=== PATIENT | male | born 1955 | race Caucasian/White ===

== ENCOUNTER 2017-02-11 14:36 | Emergency (ER) | payer MEDICARE, OTHER ==
[~2017-02-11] VITALS: Ht 175.3 cm; Wt 90.7 kg
[~2017-02-11 14:36] MED LIST: ASPI81CH58 PO; CARI-316 PO; DIPH25CA6 PO; FLUT250M2 IN; HYDR-4072 PO; IPRAAER6 IN; LEVO750T64 PO; METH5TAB2 PO; NITR0.4S29 SL; PRE5T PO; PREG25CA PO
[2017-02-11 15:01] LABS: Basophils # (auto) 0.1 uL; Basophils % (auto) 0.5 % (0.0-2.0); Eosinophils # (auto) 0.1 uL; Eosinophils % (auto) 0.7 % (0.0-7.0); Hematocrit 46.9 % (41.0-53.0); Hemoglobin 15.8 g/dL (13.5-17.5); Lymphocytes # (auto) 2.2 uL; Lymphocytes % (auto) 14.1 % (10.0-50.0); Mean Corpuscular Hemoglobin 31.9 pg (28.0-32.0); Mean Corpuscular Hgb Conc. 33.7 g/dL (32.0-36.0); Mean Corpuscular Volume 94.6 fL (80.0-100.0); Mean Platelet Volume 7.1 fL (6.9-10.8); Monocytes # (auto) 0.8 uL; Monocytes % (auto) 5.2 % (0.0-12.0); Neutrophils # (auto) 12.4 uL; Neutrophils % (auto) 79.5 % (37.0-80.0); Platelet Count (auto) 262 10^3/uL (140-450); Red Cell Distribution Width 15.4 % (11.8-14.3); White Blood Cell 15.5 10^3/uL (4.4-10.8)
[2017-02-11 15:19] LABS: Albumin 4.5 g/dL (3.4-5.0); BUN/Creatinine Ratio 26.4; Calcium 9.2 mg/dL (8.5-10.1)
[2017-02-11 15:22] LABS: Bilirubin, Total 0.7 mg/dL (0.2-1.0); Total Protein 8.3 g/dL (6.4-8.2)
[2017-02-11 15:52] VITALS: BP 154/96
== END 2017-02-11 15:44 | disposition home or self-care (01) ==
LOC: EDBD 14:36 → ER 14:36
DX: R10.9 Unspecified abdominal pain (principal); J44.9 Chronic obstructive pulmonary disease, unspecified; E11.9 Type 2 diabetes mellitus without complications; E78.5 Hyperlipidemia, unspecified; I10 Essential (primary) hypertension; I25.2 Old myocardial infarction; G89.29 Other chronic pain; M54.9 Dorsalgia, unspecified; F17.210 Nicotine dependence, cigarettes, uncomplicated; Z79.899 Other long term (current) drug therapy; Z91.018 Allergy to other foods; Z88.8 Allergy status to other drugs, medicaments and biological substances; Z88.6 Allergy status to analgesic agent
CPT/HCPCS: 36415; 74176; 80053; 82150; 83690; 85025; 93005

== ENCOUNTER 2018-12-04 00:43 | Emergency (ER) | payer MEDICARE, OTHER ==
[~2018-12-04] VITALS: Ht 165.1 cm; Wt 90.7 kg
[~2018-12-04 00:43] MED LIST changes: -CARI-316 PO; +CARI350T22 PO
[2018-12-04 01:41] LABS: Basophils # (auto) 0.1 uL; Basophils % (auto) 0.5 % (0.0-2.0); Eosinophils # (auto) 0.1 uL; Eosinophils % (auto) 1.2 % (0.0-7.0); Hematocrit 46.3 % (41.0-53.0); Hemoglobin 15.3 g/dL (13.5-17.5); Lymphocytes # (auto) 2.4 uL; Lymphocytes % (auto) 21.4 % (10.0-50.0); Mean Corpuscular Hemoglobin 27.9 pg (28.0-32.0); Mean Corpuscular Volume 84.6 fL (80.0-100.0); Monocytes # (auto) 0.7 uL; Monocytes % (auto) 6.5 % (0.0-12.0); Neutrophils # (auto) 7.9 uL; Neutrophils % (auto) 70.4 % (37.0-80.0); Nucleated Red Blood Cells % 0.1 %; Platelet Count (auto) 177 10^3/uL (140-450); Red Blood Cells 5.47 10^6/uL (4.5-5.90); White Blood Cell 11.2 10^3/uL (4.4-10.8)
[2018-12-04 01:42] LABS: Red Cell Distribution Width 23.8 % (11.8-14.3)
[2018-12-04 01:56] LABS: Alanine Aminotransferase 34 U/L (16-61); Albumin 3.7 g/dL (3.4-5.0); Anion Gap 9 (5-15); Aspartate Aminotransferase 34 U/L (15-37); BUN/Creatinine Ratio 11.9; Blood Urea Nitrogen 12 mg/dL (7-18); Calcium 8.4 mg/dL (8.5-10.1); Carbon Dioxide 25 mmol/L (21-32); Chloride 110 mmol/L (98-107); GFR African American 97 mL/min; GFR Non-African American 80 mL/min; Glucose 108 mg/dL (74-106); Potassium 3.8 mmol/L (3.5-5.1); Sodium 144 mmol/L (136-145)
[2018-12-04 02:02] LABS: Alkaline Phosphatase 77 U/L (45-117); Bilirubin, Total 0.6 mg/dL (0.2-1.0)
[2018-12-04 02:03] LABS: Total Protein 7.1 g/dL (6.4-8.2)
[2018-12-04] MEDS ORDERED: ALBUTEROL SULF 2.5 MG/0.5ML(0.5%) NEB SOLN NEB ONE (03:30)
[2018-12-04] MEDS ORDERED: IPRATROPIUM BROM 0.5 MG/2.5ML INH SOL NEB ONE (03:30)
[2018-12-04 04:00] VITALS: BP 167/104
[2018-12-04] MEDS ORDERED: methylPREDNISolone SOD SUCC 125 MG/2 ML VL IV ONE (04:15)
[2018-12-04] MEDS ORDERED: cefTRIAXone 1GM/50ML D5W 50 ML IV ONE (05:00)
== END 2018-12-04 05:09 | disposition home or self-care (01) ==
LOC: EDBD 00:43 → ER 00:43
DX: J44.9 Chronic obstructive pulmonary disease, unspecified (principal); J06.9 Acute upper respiratory infection, unspecified; K42.9 Umbilical hernia without obstruction or gangrene; E78.5 Hyperlipidemia, unspecified; I11.0 Hypertensive heart disease with heart failure; I50.9 Heart failure, unspecified; E11.9 Type 2 diabetes mellitus without complications; I25.2 Old myocardial infarction; Z86.73 Personal history of transient ischemic attack (TIA), and cerebral infarction without residual deficits
CPT/HCPCS: 36415; 71045; 80053; 84484; 85025; 93005; 94640; 96365; 99284; J0696; J7611; J7644

== ENCOUNTER 2019-02-08 09:43 | Inpatient (IN) | payer MEDICARE, OTHER ==
[~2019-02-08] VITALS: Ht 165.1 cm; Wt 84.0 kg
[2019-02-08 10:14] LABS: Basophils # (auto) 0.1 uL; Eosinophils # (auto) 0.5 uL; Mean Corpuscular Hgb Conc. 33.6 g/dL (32.0-36.0); Monocytes # (auto) 0.6 uL; Nucleated Red Blood Cells % 0.1 %
[2019-02-08 10:15] LABS: Basophils % (auto) 0.9 % (0.0-2.0); Hematocrit 52.5 % (41.0-53.0); Hemoglobin 17.7 g/dL (13.5-17.5); Lymphocytes % (auto) 22.4 % (10.0-50.0); Mean Corpuscular Hemoglobin 30.6 pg (28.0-32.0); Monocytes % (auto) 6.7 % (0.0-12.0); Platelet Count (auto) 208 10^3/uL (140-450); Red Blood Cells 5.77 10^6/uL (4.5-5.90); Red Cell Distribution Width 17.5 % (11.8-14.3); White Blood Cell 9.2 10^3/uL (4.4-10.8)
[2019-02-08] MEDS ORDERED: ALBUTEROL SULF 2.5 MG/0.5ML(0.5%) NEB SOLN NEB ONE ×2 (10:30→10:45)
[2019-02-08] MEDS ORDERED: IPRATROPIUM BROM 0.5 MG/2.5ML INH SOL NEB ONE ×2 (10:30→10:45)
[2019-02-08 10:33] LABS: Albumin 4.2 g/dL (3.4-5.0); Calcium 9.1 mg/dL (8.5-10.1); Potassium 4.1 mmol/L (3.5-5.1)
[2019-02-08 10:37] LABS: BUN/Creatinine Ratio 13.7; Bilirubin, Total 0.8 mg/dL (0.2-1.0); Total Protein 8.1 g/dL (6.4-8.2)
[2019-02-08] MEDS ORDERED: SODIUM CHLORIDE 0.9% 1,000 ML IV ONE (10:39)
[2019-02-08] MEDS ORDERED: DexAMETHasone SOD PHOS 4 MG/1ML SDV INJ IV ONE (10:45)
[2019-02-08] MEDS ORDERED: AZITHROMYCIN 500MG/ 250ML 250 ML IV ONE (12:45)
[2019-02-08] MEDS ORDERED: CARISOPRODOL 350 MG TAB PO ONE (13:45)
[2019-02-08] MEDS ORDERED: NITROGLYCERIN 0.4 MG SL TAB SL PRN (16:00)
[2019-02-08] MEDS ORDERED: ONDANSETRON HCL 4 MG/2 ML VIAL IV PRN (16:00)
[2019-02-08] MEDS ORDERED: ACETAMINOPHEN 325 MG TAB PO PRN (16:00)
--- NOTE | 2019-02-08 16:55 | NUR ---
RECEIVED REPORT FROM STEPHIE SIMPSON.
[2019-02-08 17:16] VITALS: BP 122/77
[2019-02-08 17:20] LABS: Urine Bacteria NONE SEEN /hpf (None Seen); Urine Blood Negative /uL (Negative); Urine Hyaline Cast FEW /lpf (0 - 2); Urine Specific Gravity 1.019 (1.001-1.035); Urine WBC 1 /hpf (0 - 3)
--- NOTE | 2019-02-08 17:25 | NUR ---
Telemetry admit from ER PRITIDONNELL admitted to Telemetry unit after SBAR received. Patient oriented to MARLENY SPAIN RN, unit, room, bed, and unit policies regarding patient care and visiting hours. Patient now on continuous telemetry monitoring, tele box # 49 and telemetry reading on arrival to unit is SINUS TACHYCARDIA AT 100. Patient placed on bedside oxygen, weighed by bedscale and encouraged to call if they need something. All questions and concerns addressed, patient verbalized understanding.
[2019-02-08] MEDS: ALBUTEROL SULF 2.5 MG/0.5ML(0.5%) NEB SOLN NEB SCH ×2 (18:35→21:58)
[2019-02-08] MEDS: IPRATROPIUM BROM 0.5 MG/2.5ML INH SOL NEB SCH ×2 (18:35→21:58)
[2019-02-08 18:41] VITALS: BP 135/84
--- NOTE | 2019-02-08 19:29 | NUR ---
Opening Shift Note Assumed care of patient, awake and alert. No S/S of distress/SOB or pain. Instructed on POC and to call for assist PRN, will continue to monitor for changes Q1hr and PRN. Side rails up x2. Bed locked in lowest position. Call light within reach.
--- NOTE | 2019-02-08 20:10 | NUR ---
AMA to smoke Patient signed form for AMA to smoke. Instructed patient regarding risks of injury that may occur while smoking. Patient verbalized understanding.
--- NOTE | 2019-02-08 20:16 | NUR ---
Patient went down to smoke with his scooter.
--- NOTE | 2019-02-08 20:29 | NUR ---
Patient back to floor with scooter. No signs of distress noted.
[2019-02-08] MEDS: METHADONE HCL 10 MG TAB PO SCH (21:08)
[2019-02-08 22:00] VITALS: BP 139/80
[2019-02-09 05:00] VITALS: BP 115/65
--- NOTE | 2019-02-09 05:16 | NUR ---
Patient went down to smoke with his scooter.
--- NOTE | 2019-02-09 05:28 | NUR ---
Patient back to floor with scooter. No distress noted.
--- NOTE | 2019-02-09 06:39 | NUR ---
Spoke to Dr. Lock over the phone Updated on patient status. Dr. Lock ordered repeat chest xray, Albuterol 2.5 mg q2hPRN, Azithromycin IV 500 mg daily.
[2019-02-09] MEDS ORDERED: ALBUTEROL SULF 2.5 MG/0.5ML(0.5%) NEB SOLN NEB PRN (07:00)
--- NOTE | 2019-02-09 07:09 | NUR ---
Endorsed care to day shift RN.
[2019-02-09] MEDS: IPRATROPIUM BROM 0.5 MG/2.5ML INH SOL NEB SCH ×5 (07:23→22:19)
[2019-02-09] MEDS: ALBUTEROL SULF 2.5 MG/0.5ML(0.5%) NEB SOLN NEB SCH ×5 (07:23→22:19)
--- NOTE | 2019-02-09 07:48 | NUR ---
PATIENT ROUNDS PATIENT IN ROOM, RR EQUAL AND NONLABORED, NO DISTRESS NOTED. BED IN LOWEST POSITION, SIDE RAILS UP X2, CALL LIGHT WITHIN REACH.
--- NOTE | 2019-02-09 08:45 | NUR ---
PATIENT REQUESTING TO HAVE HIS BLOOD SUGAR CHECKED PATIENT STATED HE FEELS LIKE HIS SUGAR IS LOW AND STATED HE GETS HYPOGLYCEMIC, BLOOD SUGAR CHECKED FOR PATIENT AND IS CURRENTLY 175, NO ORDERS FOR INITIATION ON SUGAR. PATIENT AWARE AND STATED "THAT'S GOOD"
[2019-02-09 09:00] VITALS: BP 122/77
[2019-02-09] MEDS: AZITHROMYCIN 500MG/ 250ML 250 ML IV SCH (09:57)
[2019-02-09] MEDS: PREGABALIN 25 MG CAP PO SCH (09:57)
[2019-02-09] MEDS: ASPirin 81 mg TAB PO SCH (09:58)
[2019-02-09] MEDS: METHADONE HCL 10 MG TAB PO SCH ×2 (09:58→21:08)
[2019-02-09] MEDS ORDERED: predniSONE 5 MG TAB PO SCH (10:00)
--- NOTE | 2019-02-09 11:48 | NUR ---
IV insertion IV access obtained, via clean sterile technique by inserting 22 gauge catheter at LEFT WRIST after 1 attempt(s). IV secured properly. No trauma to site. Patient tolerated well. IV TO RIGHT FOREARM WAS FOUND OUT WHEN I WENT TO ASSESS PATIENT, SITE BENIGN. NOTE:
[2019-02-09 13:00] VITALS: BP 130/78
[2019-02-09 16:28] VITALS: BP 92/53
[2019-02-09] MEDS: BUDESONIDE (INHALATION) 0.5 MG/2 ML NEB NEB SCH (19:18)
--- NOTE | 2019-02-09 19:30 | NUR ---
Patient went down to smoke with his scooter.
--- NOTE | 2019-02-09 19:45 | NUR ---
Patient back to floor with scooter. No distress noted.
[2019-02-09] MEDS: CARISOPRODOL 350 MG TAB PO PRN (21:30)
[2019-02-09 22:00] VITALS: BP 135/75
[2019-02-09] MEDS ORDERED: methylPREDNISolone SOD SUCC 125 MG/2 ML VL IV SCH (22:00)
--- NOTE | 2019-02-09 22:33 | NUR ---
Notified Dr. Lock regarding pharmacy hold on methylprednisolone due to severe allergy.
[2019-02-09] MEDS: diphenhdrAMINE HCL 25 MG CAP PO PRN (23:55)
[2019-02-10 05:00] VITALS: BP 158/83
[2019-02-10 06:12] LABS: Basophils # (auto) 0.1 uL; Basophils % (auto) 0.6 % (0.0-2.0); Eosinophils # (auto) 0.1 uL; Eosinophils % (auto) 1.1 % (0.0-7.0); Hematocrit 47.9 % (41.0-53.0); Hemoglobin 16.1 g/dL (13.5-17.5); Lymphocytes # (auto) 1.9 uL; Lymphocytes % (auto) 20.5 % (10.0-50.0); Mean Corpuscular Hemoglobin 30.7 pg (28.0-32.0); Mean Corpuscular Hgb Conc. 33.6 g/dL (32.0-36.0); Mean Corpuscular Volume 91.3 fL (80.0-100.0); Monocytes # (auto) 0.5 uL; Monocytes % (auto) 5.6 % (0.0-12.0); Neutrophils # (auto) 6.7 uL; Neutrophils % (auto) 72.2 % (37.0-80.0); Platelet Count (auto) 180 10^3/uL (140-450); Red Blood Cells 5.25 10^6/uL (4.5-5.90); Red Cell Distribution Width 16.8 % (11.8-14.3); White Blood Cell 9.3 10^3/uL (4.4-10.8)
[2019-02-10] MEDS: diphenhdrAMINE HCL 25 MG CAP PO PRN (06:28)
[2019-02-10 06:35] LABS: Calcium 8.6 mg/dL (8.5-10.1); Potassium 3.7 mmol/L (3.5-5.1)
[2019-02-10 06:39] LABS: BUN/Creatinine Ratio 13.7; Bilirubin, Total 0.5 mg/dL (0.2-1.0); Total Protein 7.2 g/dL (6.4-8.2)
[2019-02-10] MEDS: BUDESONIDE (INHALATION) 0.5 MG/2 ML NEB NEB SCH ×2 (06:41→18:35)
[2019-02-10] MEDS: IPRATROPIUM BROM 0.5 MG/2.5ML INH SOL NEB SCH ×5 (06:41→22:46)
[2019-02-10] MEDS: ALBUTEROL SULF 2.5 MG/0.5ML(0.5%) NEB SOLN NEB SCH ×5 (06:41→22:46)
[2019-02-10] MEDS ORDERED: HYDROcodone-ACET 10/325MG TAB PO PRN (07:30)
--- NOTE | 2019-02-10 07:33 | NUR ---
Endorsed care to day shift RN.
[2019-02-10 08:00] VITALS: BP 145/84
--- NOTE | 2019-02-10 08:00 | NUR ---
Opening Shift Note Assumed care of patient, awake and alert. No S/S of distress/SOB or pain. Instructed on POC and to call for assist PRN, will continue to monitor for changes Q1hr and PRN.
--- NOTE | 2019-02-10 10:10 | NUR ---
PT. NOT IN HIS ROOM, UNABLE TO GIVE MN. TX. , WILL SEE PT. AT NEXT SCHEDULED TIME.
[2019-02-10] MEDS: PREGABALIN 25 MG CAP PO SCH (10:17)
[2019-02-10] MEDS: AZITHROMYCIN 500MG/ 250ML 250 ML IV SCH (10:17)
[2019-02-10] MEDS: ASPirin 81 mg TAB PO SCH (10:17)
[2019-02-10 13:00] VITALS: BP 120/77
--- NOTE | 2019-02-10 15:21 | NUR ---
NUTRITION ASSESSMENT NOTES Please refer to link notes of nutrition screen form filed under the intervention section of the plan of care for further details. Est. Needs: 1650 kcal to 2050 kcal (20-25 kcal/kgBW), 66 gms to 83 gms pro (0.8-1.0 gms/kgBW). Will continue to monitor pertinent labs and reassess nutrient need prn Thank you. Addendum: 02/10/19 at [address] Amended: Links added.
[2019-02-10 16:00] VITALS: BP 136/72
[2019-02-10] MEDS ORDERED: ZOLPIDEM TARTRATE 5 MG TAB PO PRN (17:45)
[2019-02-10] MEDS ORDERED: HYDROcodone-ACET 5/325MG TAB PO PRN (17:45)
--- NOTE | 2019-02-10 19:55 | NUR ---
Opening Shift Note Assumed care of patient, awake and alert. No S/S of distress/SOB. Instructed on POC and to call for assist PRN, will continue to monitor for changes Q1hr and PRN. Patient reported he is in 5/10 generalized pain. Per patient " I am sick of this place i do not want any medications, i have not slept for three days and i feel anxious, i do not want any medications, I can not wait to leave tomorrow." Education patient about medications.
--- NOTE | 2019-02-10 20:30 | NUR ---
patient off unit went to smoke. educated patient about smoking policy. smoking consent form signed
--- NOTE | 2019-02-10 20:50 | NUR ---
patient returned back to unit. tele monitor applied. bed in low position and call light within reach.
[2019-02-10 22:00] VITALS: BP 145/89
--- NOTE | 2019-02-10 23:30 | NUR ---
patient off unit went to smoke. educated patient about smoking policy. patient has smoking consent form signed.
--- NOTE | 2019-02-10 23:56 | NUR ---
PATIENT BACK ON UNIT. TELEMONITOR APPLIED, BED IN LOW POSITION AND CALL LIGHT WITHIN REACH. NO SIGNS OR SYMPTOMS OF sob/ DISTRESS
--- NOTE | 2019-02-11 00:15 | NUR ---
PATIENT REQUESTED SOMA MEDICATION WILL MEDICATE PER PROTOCOL.
[2019-02-11] MEDS: CARISOPRODOL 350 MG TAB PO PRN (00:16)
--- NOTE | 2019-02-11 01:20 | NUR ---
PATIENT WENT OFF UNIT TO SMOKE. AMA FORM SIGNED INFORMED PATIENT ABOUT HOSPITAL SMOKING POLICY.
--- NOTE | 2019-02-11 01:57 | NUR ---
PATIENT RETURNED TO UNIT. TELEMONITOR APPLIED. BED IN LOW POSITION AND CALL LIGHT WITHIN REACH. PATIENT STATED" CAN I HAVE MY SLEEPING PILL I HAVE NOT SLEPT FOR 4 DAYS AND FEEL ANXIOUS."WILL MEDICATE PER PROTOCOL.
--- NOTE | 2019-02-11 02:30 | NUR ---
PATIENT FELT SOB. DENIES ANY PAIN. RESPIRATORY THERAPIST PAGED PER PT REQUEST. VS HR 97, B/P 147/85, O2 SATURATION 93% VIA N/C ON 4 L.
--- NOTE | 2019-02-11 02:50 | NUR ---
RESPIRATORY THERAPIST ARRIVED. PATIENT IS NOW SLEEPING WITH NO SIGNS OF DISTRESS. CHEST RISE AND FALL BILATERALLY SYMMETRICAL. RR 19. BED IN LOW POSITION. BED ALARM ON.WILL CONTINUE TO MONITOR.
[2019-02-11 05:00] VITALS: BP 162/97
--- NOTE | 2019-02-11 05:10 | NUR ---
rt at bedside patient had an episode of sob and distress while i was at lunch. patient is receiving breathing treatment.
--- NOTE | 2019-02-11 05:29 | NUR ---
patient assisted back in bed and is on 2 l nasal canula.
[2019-02-11] MEDS: IPRATROPIUM BROM 0.5 MG/2.5ML INH SOL NEB SCH ×4 (06:40→17:50)
--- NOTE | 2019-02-11 06:40 | NUR ---
Respiratory note: AT BEDSIDE FOR SCHEDULED MEDNEB TX. FOUND PT OUT OF BED AND OFF O2 WITH HR 102, RR 24, POX 78%, BREATH SOUNDS DIMINISHED/EXPIRATORY WHEEZING. GAVE PT BREATHING TX, TOLERATED WELL. PT GATHERING ITEMS SAYING HE IS GOING TO GO OUTSIDE FOR A SMOKE. RN AND RT AT BEDSIDE, ADVISED PT NOT TO SMOKE DUE TO HIS HISTORY OF INCREASED SOB/ANXIETY AFTER SMOKING. PT STILL WANTS TO GO OUT FOR A SMOKE. PLACED PT ON 4L NC AFTER MEDNEB TX, HR 99, RR 20, POX 97%.
[2019-02-11] MEDS: BUDESONIDE (INHALATION) 0.5 MG/2 ML NEB NEB SCH ×2 (06:41→17:49)
[2019-02-11] MEDS: ALBUTEROL SULF 2.5 MG/0.5ML(0.5%) NEB SOLN NEB SCH ×4 (06:41→17:50)
--- NOTE | 2019-02-11 06:50 | NUR ---
patient going out to smoke. educated patient on how his symptoms can become worsen if continuing smoking. patient verbalized understanding and stated" i will be fine, i am going out to smoke." patient has been going out to smoke and has had episodes of anxiety and sob. educated patient about smoking policy. ama form is signed.
--- NOTE | 2019-02-11 07:20 | NUR ---
REPORT GIVEN TO MATY CARD
--- NOTE | 2019-02-11 08:00 | NUR ---
OPENING SHIFT NOTE PATIENT RESTING EASY IN BED. RESPIRATIONS EVEN AND UNLABORED. A&OX4. NO S/S OF DISTRESS NOTED AT THIS TIME. PATIENT ON 4L NC. PATIENT STATING HE WANTS TO GO OUT AND SMOKE. INSTRUCTED ABOUT CONSEQUENCES OF GOING OUT TO SMOKE IN CURRENT PATIENT STATUS. CONSEQUENCES INCLUDING RESPIRATORY DISTRESS. PATIENT VERBALIZED UNDERSTANDING. PATIENT REFUSING TELEMETRY MONITORING. INSTRUCTED OF PURPOSE OF MONITOR AND HE IS STILL CONTINUING TO REFUSE. M.D. AWARE. UPDATED ON POC. ALL QUESTION ANSWERED. BED IN LOWEST LOCKED POSITION WITH CALL LIGHT WITHIN REACH.
[2019-02-11 09:00] VITALS: BP 147/86
[2019-02-11] MEDS: ASPirin 81 mg TAB PO SCH (09:29)
[2019-02-11] MEDS: PREGABALIN 25 MG CAP PO SCH (09:30)
[2019-02-11] MEDS: AZITHROMYCIN 500MG/ 250ML 250 ML IV SCH (09:31)
--- NOTE | 2019-02-11 11:20 | NUR ---
PATIENT STATED HE NO LONGER HAS OXYGEN IN 02 TANK. INSTRUCTED THAT IT IS NOT SAFE TO GO DOWNSTAIRS WITHOUT OXYGEN. PATIENT STATED "I AM FINE, I DONT GET OUT OF MY SCOOTER ANYWAY, I DO IT ALL THE TIME." PATIENT INSTRUCTED ON CONSEQUENCES OF LEAVING FLOOR WITHOUT OXYGEN INCLUDING RESPIRATORY DISTRESS AND POSSIBLY EVEN . PATIENT VERBALIZED UNDERSTANDING AND STILL DECIDED TO GO DOWNSTAIRS AND SMOKE.
--- NOTE | 2019-02-11 12:00 | NUR ---
Juan SANCHEZ AT BEDSIDE. INFORMED OF PATIENT STATUS INCLUDING VS, LABS, AND CURRENT S/S. Juan SANCHEZ STATED "STABLE FROM PULMONOLOGISTS STAND POINT."
[2019-02-11 13:00] VITALS: BP 115/75
--- NOTE | 2019-02-11 13:26 | NUR ---
SPOKE TO ELVA FROM [facility] REGARDING PATIENT RUNNING OUT OF HOME OXYGEN TO USE ON RIDE HOME WHEN DISCHARGED. ELVA STATED HE WOULD BE ABLE TO DROP OFF A OXYGEN TANK TO PATIENT IN HOSPITAL.
--- NOTE | 2019-02-11 14:05 | NUR ---
Respiratory note: Scheduled medneb tx not given, pt not in his room at this time. Notified STEPHIE Mccauley. Will return for next scheduled tx.
--- NOTE | 2019-02-11 15:00 | NUR ---
ANTOINETTE STEVENSON DELIVERD O2 TANK.
--- NOTE | 2019-02-11 15:30 | NUR ---
SENT REEL CUTTER DOWN. PATIENT CONTINUING TO REFUSE TO WEAR MONITOR. Juan BARTH.
[2019-02-11 17:00] VITALS: BP_SYST 115; BP_SYST 168; BP_DIAS 75; BP_DIAS 86
--- NOTE | 2019-02-11 19:10 | NUR ---
ENDORSED CARE TO RN SUMMER. UPDATED ON PATIENT STATUS. PATIENT CURRENTLY DOWN STAIRS TO SMOKE. M.D. AT BEDSIDE. OVERHEAD PAGED PATIENT TO RETURN BACK TO ROOM. ONCOMING RN AWAITING PATIENT TO RETURN AND NEW ORDERS FROM Ashish.
[2019-02-11 19:39] VITALS: BP 168/86
--- NOTE | 2019-02-11 20:23 | NUR ---
Pt DC home Pt left unit via motorized scooter after IV access was discontinued, DC instructions were given and new prescriptions were given. Pt verbally acknowledged that he is to make his own follow up appointment with Dr Lock on Wednesday. Phone number and address provided to make appointment.
[2019-02-11 22:00] VITALS: BP 147/92
== END 2019-02-11 20:30 | disposition home or self-care (01) | DRG 189 ==
LOC: ER 09:43 → TELE 09:44 → TELE-WESTW 17:25
PROVIDERS: ADMIT Internal Medicine; ATTEND Internal Medicine
DX: J96.21 Acute and chronic respiratory failure with hypoxia (principal); J44.1 Chronic obstructive pulmonary disease with (acute) exacerbation; I50.22 Chronic systolic (congestive) heart failure; Z68.30 Body mass index [BMI] 30.0-30.9, adult; E66.9 Obesity, unspecified; E11.9 Type 2 diabetes mellitus without complications; E78.5 Hyperlipidemia, unspecified; G89.4 Chronic pain syndrome; I11.0 Hypertensive heart disease with heart failure; M13.0 Polyarthritis, unspecified; M79.7 Fibromyalgia; M81.0 Age-related osteoporosis without current pathological fracture; F41.9 Anxiety disorder, unspecified; F32.9 Major depressive disorder, single episode, unspecified; F17.210 Nicotine dependence, cigarettes, uncomplicated; I25.10 Atherosclerotic heart disease of native coronary artery without angina pectoris; Z82.49 Family history of ischemic heart disease and other diseases of the circulatory system; I25.2 Old myocardial infarction; Z82.5 Family history of asthma and other chronic lower respiratory diseases; Z86.73 Personal history of transient ischemic attack (TIA), and cerebral infarction without residual deficits; Z99.81 Dependence on supplemental oxygen; Z87.11 Personal history of peptic ulcer disease; Z88.5 Allergy status to narcotic agent; Z88.8 Allergy status to other drugs, medicaments and biological substances; Z71.6 Tobacco abuse counseling
CPT/HCPCS: 36415; 71045; 80053; 81001; 82962; 83735; 83880; 84443; 85025; 93005; 94640; 94644; G0378; J1100

== ENCOUNTER 2019-04-01 12:05 | Emergency (ER) | payer MEDICARE, OTHER ==
[~2019-04-01] VITALS: Ht 165.1 cm; Wt 90.7 kg
[~2019-04-01 12:05] MED LIST changes: -LEVO750T64 PO
[2019-04-01 12:23] VITALS: BP 131/77
[2019-04-01 13:27] LABS: Basophils # (auto) 0.1 uL; Basophils % (auto) 0.9 % (0.0-2.0); Eosinophils # (auto) 0.2 uL; Eosinophils % (auto) 1.6 % (0.0-7.0); Hematocrit 47.9 % (41.0-53.0); Hemoglobin 16.1 g/dL (13.5-17.5); Lymphocytes # (auto) 1.9 uL; Lymphocytes % (auto) 19.1 % (10.0-50.0); Mean Corpuscular Hemoglobin 30.8 pg (28.0-32.0); Mean Corpuscular Hgb Conc. 33.7 g/dL (32.0-36.0); Mean Corpuscular Volume 91.4 fL (80.0-100.0); Monocytes # (auto) 0.6 uL; Monocytes % (auto) 5.6 % (0.0-12.0); Neutrophils # (auto) 7.4 uL; Neutrophils % (auto) 72.8 % (37.0-80.0); Nucleated Red Blood Cells % 0.1 %; Platelet Count (auto) 227 10^3/uL (140-450); Red Blood Cells 5.24 10^6/uL (4.5-5.90); White Blood Cell 10.1 10^3/uL (4.4-10.8)
[2019-04-01 13:46] LABS: Alanine Aminotransferase 28 U/L (16-61); Anion Gap 7 (5-15); Aspartate Aminotransferase 24 U/L (15-37); BUN/Creatinine Ratio 13.3; Blood Urea Nitrogen 13 mg/dL (7-18); Calcium 8.2 mg/dL (8.5-10.1); Carbon Dioxide 26 mmol/L (21-32); Chloride 100 mmol/L (98-107); GFR African American 100 mL/min; GFR Non-African American 83 mL/min; Glucose 139 mg/dL (74-106); Potassium 3.6 mmol/L (3.5-5.1); Sodium 133 mmol/L (136-145)
[2019-04-01 13:51] LABS: Alkaline Phosphatase 105 U/L (45-117); Bilirubin, Total 0.6 mg/dL (0.2-1.0); Total Protein 7.6 g/dL (6.4-8.2)
== END 2019-04-01 17:20 | disposition left against medical advice (07) ==
LOC: ER 12:11
DX: R06.02 Shortness of breath (principal); Z53.21 Procedure and treatment not carried out due to patient leaving prior to being seen by health care provider
CPT/HCPCS: 36415; 71045; 80053; 84484; 85025; 93005

== ENCOUNTER 2019-04-11 16:41 | Inpatient (IN) | payer MEDICARE, OTHER ==
[~2019-04-11] VITALS: Ht 162.6 cm; Wt 92.8 kg
[2019-04-11] MEDS ORDERED: methylPREDNISolone SOD SUCC 125 MG/2 ML VL IV ONE (17:15)
[2019-04-11] MEDS ORDERED: IPRATROPIUM BROM 0.5 MG/2.5ML INH SOL HHN ONE (17:15)
[2019-04-11] MEDS ORDERED: ALBUTEROL SULF 2.5 MG/0.5ML(0.5%) NEB SOLN HHN ONE (17:15)
[2019-04-11 18:00] LABS: Basophils # (auto) 0 uL; Basophils % (auto) 0.5 % (0.0-2.0); Eosinophils # (auto) 0.3 uL; Eosinophils % (auto) 3.7 % (0.0-7.0); Hematocrit 49.1 % (41.0-53.0); Hemoglobin 16.6 g/dL (13.5-17.5); Lymphocytes # (auto) 1.5 uL; Lymphocytes % (auto) 16.4 % (10.0-50.0); Mean Corpuscular Hemoglobin 31.1 pg (28.0-32.0); Mean Corpuscular Hgb Conc. 33.8 g/dL (32.0-36.0); Monocytes # (auto) 0.6 uL; Monocytes % (auto) 6.1 % (0.0-12.0); Neutrophils # (auto) 6.8 uL; Neutrophils % (auto) 73.3 % (37.0-80.0); Nucleated Red Blood Cells % 0.1 %; Platelet Count (auto) 203 10^3/uL (140-450); Red Blood Cells 5.34 10^6/uL (4.5-5.90); Red Cell Distribution Width 15.5 % (11.8-14.3); White Blood Cell 9.2 10^3/uL (4.4-10.8)
[2019-04-11 18:11] LABS: Chloride 107 mmol/L (98-107); Potassium 4.2 mmol/L (3.5-5.1); Sodium 138 mmol/L (136-145)
[2019-04-11 18:16] LABS: Alanine Aminotransferase 30 U/L (16-61); Albumin 3.5 g/dL (3.4-5.0); Anion Gap 6 (5-15); Aspartate Aminotransferase 24 U/L (15-37); BUN/Creatinine Ratio 18.2; Blood Urea Nitrogen 16 mg/dL (7-18); Calcium 8.9 mg/dL (8.5-10.1); Carbon Dioxide 25 mmol/L (21-32); GFR African American 113 mL/min; GFR Non-African American 94 mL/min; Glucose 85 mg/dL (74-106)
[2019-04-11 18:24] LABS: Alkaline Phosphatase 99 U/L (45-117); Bilirubin, Total 0.8 mg/dL (0.2-1.0); Total Protein 7.5 g/dL (6.4-8.2)
[2019-04-11] MEDS ORDERED: HYDROcodone-ACET 10/325MG TAB PO ONE (21:30)
[2019-04-11] MEDS ORDERED: ONDANSETRON HCL 4 MG/2 ML VIAL IV PRN (23:30)
[2019-04-11] MEDS ORDERED: MORPHINE SULF INJ 2 MG/ML SYRINGE 1ML IV PRN (23:30)
[2019-04-12] VITALS (7 sets, daily range): BP systolic 116–143; BP diastolic 68–81
[2019-04-12] MEDS: AZITHROMYCIN 500MG/ 250ML 250 ML IV SCH ×2 (00:18→23:46)
[2019-04-12] MEDS: methylPREDNISolone SOD SUCC 125 MG/2 ML VL IV SCH ×4 (00:18→18:00)
--- NOTE | 2019-04-12 01:23 | NUR ---
Telemetry admit from ER DONNELL MARCOS admitted to Telemetry unit after SBAR received. Patient oriented to BRIANA LUCIA, RN primary RN, unit, room, bed, and unit policies regarding patient care and visiting hours. Patient now on continuous telemetry monitoring, tele box # 32 and telemetry reading on arrival to unit is sinus rhythm at 96. Patient placed on bedside oxygen at 4L via NC, allergy band placed on patient. weighed by bed scale and encouraged to call if they need something. All questions and concerns addressed, patient verbalized understanding.
[2019-04-12] MEDS: HYDROcodone-ACET 10/325MG TAB PO PRN ×3 (04:03→20:05)
--- NOTE | 2019-04-12 05:55 | NUR ---
Allergy Solumedrol held due to documented allergy. Patient states that when taking this medication he experiences increased difficulty breathing.
[2019-04-12 06:44] LABS: Basophils # (auto) 0 uL; Basophils % (auto) 0.2 % (0.0-2.0); Eosinophils # (auto) 0 uL; Eosinophils % (auto) 0.1 % (0.0-7.0); Hematocrit 47.2 % (41.0-53.0); Hemoglobin 16.1 g/dL (13.5-17.5); Lymphocytes # (auto) 0.4 uL; Lymphocytes % (auto) 6.5 % (10.0-50.0); Mean Corpuscular Hemoglobin 31.5 pg (28.0-32.0); Mean Corpuscular Hgb Conc. 34.1 g/dL (32.0-36.0); Mean Corpuscular Volume 92.4 fL (80.0-100.0); Monocytes # (auto) 0.1 uL; Monocytes % (auto) 1.1 % (0.0-12.0); Neutrophils # (auto) 6.2 uL; Neutrophils % (auto) 92.1 % (37.0-80.0); Nucleated Red Blood Cells % 0.1 %; Platelet Count (auto) 196 10^3/uL (140-450); Red Blood Cells 5.11 10^6/uL (4.5-5.90); Red Cell Distribution Width 15.2 % (11.8-14.3); White Blood Cell 6.7 10^3/uL (4.4-10.8)
[2019-04-12 06:58] LABS: BUN/Creatinine Ratio 13.7; Calcium 8.6 mg/dL (8.5-10.1); Potassium 4.8 mmol/L (3.5-5.1)
--- NOTE | 2019-04-12 08:50 | NUR ---
Patient complained of shortness of breath. Paged Dr. Lock for breathing treatment orders. Waiting for call back.
--- NOTE | 2019-04-12 10:13 | NUR ---
Spoke with Dr. Ulloa-pulmonary re: SOB, he will see patient today.
[2019-04-12] MEDS ORDERED: ALBUTEROL SULF 2.5 MG/0.5ML(0.5%) NEB SOLN ONE (10:14)
--- NOTE | 2019-04-12 10:15 | NUR ---
Orders received from Dr. Lock for breathing treatment Albuterol 2.5mg nebulization q2 hours prn.
[2019-04-12] MEDS: ALBUTEROL SULF 2.5 MG/0.5ML(0.5%) NEB SOLN NEB PRN ×3 (10:22→22:07)
--- NOTE | 2019-04-12 12:00 | NUR ---
Patient refused IV Solumedrol, stated "My shortness breath becomes worst every time I receive prednisone."
--- NOTE | 2019-04-12 13:00 | NUR ---
Dr. Lock at bedside, patient was advised. Made him aware that patient been refusing Solumedrol IV.
--- NOTE | 2019-04-12 16:00 | NUR ---
Pulmonary Consult Dr. Ulloa at bedside.
--- NOTE | 2019-04-12 18:04 | NUR ---
Refused IV Solumedrol, Dr. Lock and Dr. Ulloa aware.
--- NOTE | 2019-04-12 18:10 | NUR ---
Patient complained of generalized body pain 5/10 and requesting for pain medication. Reminded him that the next [place] PO is due at 1930pm. Patient understood, then requested for breathing treatment. RT was paged.
--- NOTE | 2019-04-12 18:38 | NUR ---
Paged RT again for breathing treatment.
--- NOTE | 2019-04-12 19:20 | NUR ---
Opening Shift Note Received report from natali Vincent RN. Assumed care of patient, awake and alert. No S/S of distress/SOB, but c/o generalized pain of 7/10. Will give pain medication as ordered. Instructed on POC and to call for assist PRN, will continue to monitor for changes Q1hr and PRN. Bed placed in lowest position, bed alarm turned on and call light within reach.
[2019-04-12] MEDS: BUDESONIDE (INHALATION) 0.5 MG/2 ML NEB NEB SCH (22:07)
--- NOTE | 2019-04-13 | NUR ---
PATIENT REFUSED SOLUMEDROL AND STATES HE HAS ALLERGIC REACTION TO MEDICATION.
--- NOTE | 2019-04-13 02:00 | NUR ---
ROUNDS PATIENT IS C/O GENERALIZED PAIN. GIVEN NORCO ORDERED, NO DISTRESS NOTED AND PATIENT IS RESTING IN BED AT THIS TIME.
[2019-04-13] MEDS: HYDROcodone-ACET 10/325MG TAB PO PRN ×4 (02:15→20:19)
[2019-04-13 05:30] VITALS: BP 134/76
[2019-04-13] MEDS: methylPREDNISolone SOD SUCC 125 MG/2 ML VL IV SCH ×3 (06:00→12:00)
[2019-04-13 06:39] LABS: Basophils # (auto) 0 uL; Basophils % (auto) 0.5 % (0.0-2.0); Eosinophils # (auto) 0.1 uL; Eosinophils % (auto) 0.6 % (0.0-7.0); Hematocrit 45.2 % (41.0-53.0); Hemoglobin 15.1 g/dL (13.5-17.5); Lymphocytes # (auto) 2.1 uL; Mean Corpuscular Hgb Conc. 33.4 g/dL (32.0-36.0); Mean Corpuscular Volume 92.6 fL (80.0-100.0); Monocytes # (auto) 0.6 uL; Monocytes % (auto) 6.8 % (0.0-12.0); Neutrophils # (auto) 6.3 uL; Neutrophils % (auto) 69.1 % (37.0-80.0); Platelet Count (auto) 190 10^3/uL (140-450); Red Blood Cells 4.88 10^6/uL (4.5-5.90); Red Cell Distribution Width 15.2 % (11.8-14.3); White Blood Cell 9.2 10^3/uL (4.4-10.8)
[2019-04-13 06:47] LABS: BUN/Creatinine Ratio 14.9; Calcium 8.6 mg/dL (8.5-10.1); Potassium 3.6 mmol/L (3.5-5.1)
[2019-04-13] MEDS: BUDESONIDE (INHALATION) 0.5 MG/2 ML NEB NEB SCH ×2 (08:45→19:24)
[2019-04-13] MEDS: ALBUTEROL SULF 2.5 MG/0.5ML(0.5%) NEB SOLN NEB PRN ×3 (08:46→19:24)
[2019-04-13 09:35] VITALS: BP 104/67
--- NOTE | 2019-04-13 12:00 | NUR ---
Patient refused Solumedrol IV.
[2019-04-13 14:10] VITALS: BP 102/59
[2019-04-13 16:19] VITALS: BP 109/69
[2019-04-13 22:00] VITALS: BP 124/70
--- NOTE | 2019-04-14 | NUR ---
Patient refused Solumedrol IV.
[2019-04-14] MEDS: AZITHROMYCIN 500MG/ 250ML 250 ML IV SCH (01:05)
[2019-04-14] MEDS: HYDROcodone-ACET 10/325MG TAB PO PRN ×4 (02:00→21:45)
[2019-04-14] MEDS: methylPREDNISolone SOD SUCC 125 MG/2 ML VL IV SCH ×4 (05:39→17:28)
[2019-04-14 06:16] VITALS: BP 115/67
[2019-04-14 07:11] LABS: Basophils # (auto) 0 uL; Basophils % (auto) 0.6 % (0.0-2.0); Eosinophils # (auto) 0.2 uL; Eosinophils % (auto) 2.7 % (0.0-7.0); Hematocrit 45.2 % (41.0-53.0); Hemoglobin 15.4 g/dL (13.5-17.5); Lymphocytes # (auto) 2.1 uL; Lymphocytes % (auto) 29.6 % (10.0-50.0); Mean Corpuscular Hemoglobin 31.4 pg (28.0-32.0); Mean Corpuscular Hgb Conc. 34.1 g/dL (32.0-36.0); Monocytes # (auto) 0.5 uL; Monocytes % (auto) 6.8 % (0.0-12.0); Neutrophils # (auto) 4.3 uL; Neutrophils % (auto) 60.3 % (37.0-80.0); Platelet Count (auto) 189 10^3/uL (140-450); Red Blood Cells 4.91 10^6/uL (4.5-5.90); Red Cell Distribution Width 15.5 % (11.8-14.3); White Blood Cell 7.1 10^3/uL (4.4-10.8)
[2019-04-14 07:22] LABS: BUN/Creatinine Ratio 16.3; Calcium 8.4 mg/dL (8.5-10.1); Potassium 4.4 mmol/L (3.5-5.1)
[2019-04-14] MEDS: ALBUTEROL SULF 2.5 MG/0.5ML(0.5%) NEB SOLN NEB PRN ×2 (07:38→18:04)
[2019-04-14] MEDS: BUDESONIDE (INHALATION) 0.5 MG/2 ML NEB NEB SCH ×2 (07:38→18:04)
--- NOTE | 2019-04-14 08:00 | NUR ---
Opening Shift Note Assumed care of patient, awake and alert. No S/S of distress/SOB or pain. Instructed on POC and to call for assist PRN, will continue to monitor for changes Q1hr and PRN.
[2019-04-14 09:54] VITALS: BP 120/70
--- NOTE | 2019-04-14 10:20 | NUR ---
Patient out of bed. Patient signed an AMA form to go down for a breath of fresh air.
--- NOTE | 2019-04-14 10:50 | NUR ---
Patient back to his room.
[2019-04-14 12:52] VITALS: BP 122/78
--- NOTE | 2019-04-14 14:37 | NUR ---
Nutrition Assessment Notes please see attached link for complete assessment Est. Needs ABW 75 [id number] kcal (20-23 kcal/kgBW), 75-82 gms pro (1.0-1.1 gms/kgBW). Will continue to monitor pertinent labs and reassess nutrient need prn Addendum: 04/14/19 at [address] Amended: Links added.
[2019-04-14 16:56] VITALS: BP 145/61
--- NOTE | 2019-04-14 17:27 | NUR ---
Patient been refusing IV Solumedrol. Dr. Ulloa and Dr. Lock aware.
--- NOTE | 2019-04-15 | NUR ---
PATIENT REFUSED IV SOLUMEDROL. MD SANCHEZ AND MD DESIR AWARE.
[2019-04-15] MEDS: AZITHROMYCIN 500MG/ 250ML 250 ML IV SCH (00:27)
[2019-04-15] MEDS: HYDROcodone-ACET 10/325MG TAB PO PRN ×2 (04:24→10:19)
[2019-04-15] MEDS: ALBUTEROL SULF 2.5 MG/0.5ML(0.5%) NEB SOLN NEB PRN ×2 (04:31→05:50)
[2019-04-15] MEDS: BUDESONIDE (INHALATION) 0.5 MG/2 ML NEB NEB SCH (05:50)
[2019-04-15 05:56] VITALS: BP 142/83
[2019-04-15] MEDS: methylPREDNISolone SOD SUCC 125 MG/2 ML VL IV SCH ×3 (06:00→12:00)
--- NOTE | 2019-04-15 07:20 | NUR ---
Opening shift note Assumed care of patient from night assistant. Patient alert and oriented x4, no signs of distress noted. Patient was updated on the plan of care and verbalized understanding. Bed in lowest position, call light in reach, side rails upx2. Patient is encouraged to call for assistance. Will continue to monitor.
[2019-04-15 09:17] VITALS: BP 148/66
[2019-04-15 12:00] VITALS: BP 107/51
--- NOTE | 2019-04-15 12:01 | NUR ---
DONNELL MARCOS states they want to leave the floor Against Medical Advice (AMA). Patient encouraged to stay on floor. Dr. Lock notified of patient's wishes. Patient advised of the risks and benefits of leaving AMA, patient verbalized understanding and signed required AMA form. Tele box returned, IV removed using clean technique, catheter intact, pressure dressing applied, patient tolerated well.
== END 2019-04-15 12:54 | disposition left against medical advice (07) | DRG 189 ==
LOC: EDBD 16:41 → ER 16:51 → TELE 16:52 → TELE-CENTR 23:44
PROVIDERS: ADMIT Internal Medicine; ATTEND Internal Medicine
DX: J96.21 Acute and chronic respiratory failure with hypoxia (principal); J44.1 Chronic obstructive pulmonary disease with (acute) exacerbation; I50.22 Chronic systolic (congestive) heart failure; E66.9 Obesity, unspecified; Z68.34 Body mass index [BMI] 34.0-34.9, adult; E78.5 Hyperlipidemia, unspecified; I25.10 Atherosclerotic heart disease of native coronary artery without angina pectoris; E11.40 Type 2 diabetes mellitus with diabetic neuropathy, unspecified; Z53.29 Procedure and treatment not carried out because of patient's decision for other reasons; I11.0 Hypertensive heart disease with heart failure; M79.7 Fibromyalgia; M81.0 Age-related osteoporosis without current pathological fracture; Z77.22 Contact with and (suspected) exposure to environmental tobacco smoke (acute) (chronic); Z82.5 Family history of asthma and other chronic lower respiratory diseases; I25.2 Old myocardial infarction; Z86.73 Personal history of transient ischemic attack (TIA), and cerebral infarction without residual deficits; Z82.49 Family history of ischemic heart disease and other diseases of the circulatory system; Z99.81 Dependence on supplemental oxygen; Z87.11 Personal history of peptic ulcer disease; Z88.5 Allergy status to narcotic agent; Z88.8 Allergy status to other drugs, medicaments and biological substances
CPT/HCPCS: 36415; 71045; 80048; 80053; 83605; 83880; 84484; 85025; 87040; 94640; 94644; 96365; 99291; G0378

== ENCOUNTER 2019-05-06 22:04 | Emergency (ER) | payer MEDICARE, OTHER ==
[~2019-05-06] VITALS: Ht 165.1 cm; Wt 90.7 kg
[~2019-05-06 22:04] MED LIST changes: -METH5TAB2 PO; -PRE5T PO
[2019-05-06 23:12] LABS: Basophils # (auto) 0.1 uL; Basophils % (auto) 0.6 % (0.0-2.0); Eosinophils # (auto) 0.2 uL; Eosinophils % (auto) 1.9 % (0.0-7.0); Hematocrit 49.2 % (41.0-53.0); Hemoglobin 16.5 g/dL (13.5-17.5); Lymphocytes # (auto) 1.6 uL; Lymphocytes % (auto) 17.1 % (10.0-50.0); Mean Corpuscular Hemoglobin 31.8 pg (28.0-32.0); Mean Corpuscular Hgb Conc. 33.6 g/dL (32.0-36.0); Mean Corpuscular Volume 94.8 fL (80.0-100.0); Monocytes # (auto) 0.7 uL; Monocytes % (auto) 7.2 % (0.0-12.0); Neutrophils # (auto) 6.7 uL; Neutrophils % (auto) 73.2 % (37.0-80.0); Nucleated Red Blood Cells % 0.1 %; Platelet Count (auto) 184 10^3/uL (140-450); Red Blood Cells 5.19 10^6/uL (4.5-5.90); Red Cell Distribution Width 16.9 % (11.8-14.3); White Blood Cell 9.2 10^3/uL (4.4-10.8)
[2019-05-06] MEDS ORDERED: IPRATROPIUM BROM 0.5 MG/2.5ML INH SOL NEB ONE (23:15)
[2019-05-06] MEDS ORDERED: ALBUTEROL SULF 2.5 MG/0.5ML(0.5%) NEB SOLN NEB ONE (23:15)
[2019-05-06] MEDS ORDERED: predniSONE 20 MG TAB PO ONE (23:30)
[2019-05-06] MEDS ORDERED: SODIUM CHLORIDE 0.9% 500 ML IV ONE (23:30)
[2019-05-06 23:34] LABS: Alanine Aminotransferase 24 U/L (16-61); Albumin 3.7 g/dL (3.4-5.0); Anion Gap 7 (5-15); Aspartate Aminotransferase 18 U/L (15-37); BUN/Creatinine Ratio 12.1; Blood Urea Nitrogen 11 mg/dL (7-18); Calcium 8.5 mg/dL (8.5-10.1); Carbon Dioxide 25 mmol/L (21-32); Chloride 108 mmol/L (98-107); GFR African American 109 mL/min; GFR Non-African American 90 mL/min; Glucose 87 mg/dL (74-106); Potassium 4.2 mmol/L (3.5-5.1); Sodium 140 mmol/L (136-145)
[2019-05-06 23:39] LABS: Alkaline Phosphatase 98 U/L (45-117); Bilirubin, Total 0.5 mg/dL (0.2-1.0); Total Protein 7.6 g/dL (6.4-8.2)
[2019-05-07 02:00] VITALS: BP 143/80
== END 2019-05-07 03:04 | disposition home or self-care (01) ==
LOC: EDBD 22:04 → ER 22:04
DX: J44.1 Chronic obstructive pulmonary disease with (acute) exacerbation (principal); J01.00 Acute maxillary sinusitis, unspecified; F17.210 Nicotine dependence, cigarettes, uncomplicated; I11.0 Hypertensive heart disease with heart failure; I50.9 Heart failure, unspecified; E11.9 Type 2 diabetes mellitus without complications; E78.5 Hyperlipidemia, unspecified; I25.2 Old myocardial infarction; Z86.73 Personal history of transient ischemic attack (TIA), and cerebral infarction without residual deficits; Z87.11 Personal history of peptic ulcer disease
CPT/HCPCS: 36415; 36600; 71045; 80053; 82805; 83605; 83880; 84484; 85025; 93005; 94640; 99284; J7040; J7512; J7611; J7644

== ENCOUNTER 2019-06-01 00:32 | Emergency (ER) | payer MEDICARE, OTHER ==
[~2019-06-01] VITALS: Ht 170.2 cm; Wt 104.3 kg
[2019-06-01 01:47] LABS: Basophils # (auto) 0.1 uL; Basophils % (auto) 0.8 % (0.0-2.0); Eosinophils # (auto) 0.2 uL; Eosinophils % (auto) 2.2 % (0.0-7.0); Hematocrit 50.7 % (41.0-53.0); Lymphocytes # (auto) 1.6 uL; Lymphocytes % (auto) 17.6 % (10.0-50.0); Mean Corpuscular Hgb Conc. 33.5 g/dL (32.0-36.0); Mean Corpuscular Volume 92.5 fL (80.0-100.0); Monocytes # (auto) 0.8 uL; Monocytes % (auto) 8.8 % (0.0-12.0); Neutrophils # (auto) 6.4 uL; Neutrophils % (auto) 70.6 % (37.0-80.0); Platelet Count (auto) 183 10^3/uL (140-450); Red Blood Cells 5.48 10^6/uL (4.5-5.90)
[2019-06-01 02:02] LABS: INR 1.07 (0.9-1.15); Partial Thromboplastin Time 26.5 sec (23.64-32.05)
[2019-06-01 02:06] LABS: Alanine Aminotransferase 30 U/L (16-61); Albumin 3.1 g/dL (3.4-5.0); Anion Gap 6 (5-15); Aspartate Aminotransferase 18 U/L (15-37); BUN/Creatinine Ratio 15.1; Blood Urea Nitrogen 11 mg/dL (7-18); Calcium 8.9 mg/dL (8.5-10.1); Carbon Dioxide 26 mmol/L (21-32); Chloride 104 mmol/L (98-107); GFR African American 140 mL/min; GFR Non-African American 116 mL/min; Glucose 102 mg/dL (74-106); Potassium 4.1 mmol/L (3.5-5.1); Sodium 136 mmol/L (136-145)
[2019-06-01 02:11] LABS: Alkaline Phosphatase 73 U/L (45-117); Bilirubin, Total 0.4 mg/dL (0.2-1.0); Total Protein 7.2 g/dL (6.4-8.2)
[2019-06-01] MEDS: HYDROmorphone HCL 2 MG/ML VL IV ONE (02:46)
[2019-06-01] MEDS: HYDROcodone-ACET 10/325MG TAB PO ONE (03:50)
[2019-06-01 04:00] VITALS: BP 147/87
[2019-06-01 04:23] LABS: Urine Bacteria NONE SEEN /hpf (None Seen); Urine Blood Negative /uL (Negative); Urine Mucus FEW (None Seen); Urine Specific Gravity 1.016 (1.001-1.035); Urine WBC <1 /hpf (0 - 3)
[2019-06-01] MEDS: KETOROLAC TROMETH 60MG/2ML VIAL IM ONE (04:27)
== END 2019-06-01 06:43 | disposition home or self-care (01) ==
LOC: ER 00:32 → EDBD 00:32 → ER 06:43
DX: N20.0 Calculus of kidney (principal); I11.0 Hypertensive heart disease with heart failure; I50.9 Heart failure, unspecified; E11.9 Type 2 diabetes mellitus without complications; E78.5 Hyperlipidemia, unspecified; I25.2 Old myocardial infarction; Z88.5 Allergy status to narcotic agent; Z88.8 Allergy status to other drugs, medicaments and biological substances; F17.210 Nicotine dependence, cigarettes, uncomplicated
CPT/HCPCS: 36415; 74176; 80053; 81001; 83880; 84484; 85025; 85610; 85730; 93005; 96372; 96374; 99284; J1170; J1885

== ENCOUNTER 2019-08-16 14:42 | Inpatient (IN) | payer MEDICARE, OTHER ==
[~2019-08-16] VITALS: Ht 165.1 cm; Wt 86.2 kg
[2019-08-16] MEDS ORDERED: SODIUM CHLORIDE 0.9% 1,000 ML IV ONE (15:18)
[2019-08-16] MEDS ORDERED: IPRATROPIUM BROM 0.5 MG/2.5ML INH SOL NEB ONE (15:30)
[2019-08-16] MEDS ORDERED: ALBUTEROL SULF 2.5 MG/0.5ML(0.5%) NEB SOLN NEB ONE (15:30)
[2019-08-16 15:40] LABS: Basophils # (auto) 0.1 10 ^3/uL (0-0.2); Basophils % (auto) 0.6 % (0.0-2.0); Lymphocytes # (auto) 1.7 10 ^3/uL (0.4-5.4); Monocytes # (auto) 0.9 10 ^3/uL (0-1.3); Neutrophils # (auto) 9.5 10 ^3/uL (1.6-8.6); Nucleated Red Blood Cells % 0.2 %
[2019-08-16 15:42] LABS: Eosinophils # (auto) 0.2 10 ^3/uL (0-0.8); Eosinophils % (auto) 1.3 % (0.0-7.0); Hemoglobin 18.7 g/dL (13.5-17.5); Lymphocytes % (auto) 14.1 % (10.0-50.0); Mean Corpuscular Hemoglobin 28.2 pg (28.0-32.0); Mean Corpuscular Hgb Conc. 32.4 g/dL (32.0-36.0); Monocytes % (auto) 7.3 % (0.0-12.0); Neutrophils % (auto) 76.7 % (37.0-80.0); Platelet Count (auto) 222 10^3/uL (140-450); Red Blood Cells 6.62 10^6/uL (4.5-5.90); Red Cell Distribution Width 17.7 % (11.8-14.3); White Blood Cell 12.4 10^3/uL (4.4-10.8)
[2019-08-16 15:46] LABS: Hematocrit 57.6 % (41.0-53.0)
[2019-08-16 15:55] LABS: Albumin 3.6 g/dL (3.4-5.0); Anion Gap 8 (5-15); BUN/Creatinine Ratio 11.4; Blood Urea Nitrogen 9 mg/dL (7-18); Calcium 8.9 mg/dL (8.5-10.1); Carbon Dioxide 26 mmol/L (21-32); Chloride 105 mmol/L (98-107); GFR African American 128 mL/min; GFR Non-African American 106 mL/min; Glucose 100 mg/dL (74-106); Magnesium 2.4 mg/dL (1.6-2.6); Potassium 3.8 mmol/L (3.5-5.1); Sodium 139 mmol/L (136-145)
[2019-08-16 16:04] LABS: Alanine Aminotransferase 33 U/L (16-61); Alkaline Phosphatase 95 U/L (45-117); Aspartate Aminotransferase 25 U/L (15-37); Bilirubin, Total 0.9 mg/dL (0.2-1.0); Total Protein 7.8 g/dL (6.4-8.2)
[2019-08-16] MEDS ORDERED: KETOROLAC TROMETH 15 mg/ml 1ML VL IV ONE (16:45)
[2019-08-16] MEDS ORDERED: KETOROLAC TROMETH 30 MG/ML 1ML VIAL IV ONE (16:45)
[2019-08-16 16:54] LABS: INR 1.16 (0.9-1.15); Partial Thromboplastin Time 27.7 sec (23.64-32.05)
[2019-08-16] MEDS ORDERED: SPIRONOLACTONE 25 MG TAB PO ONE (17:30)
[2019-08-16] MEDS ORDERED: cefTRIAXone 1GM/50ML D5W 50 ML IV ONE (17:30)
[2019-08-16] MEDS ORDERED: levoFLOXacin 500MG 100 ML IV ONE (17:30)
[2019-08-16] MEDS ORDERED: FUROSEMIDE 40 MG/4 ML VIAL IV ONE (17:30)
[2019-08-16] MEDS ORDERED: FUROSEMIDE 100 MG/10ML VIAL IV ONE (18:15)
[2019-08-16 19:18] LABS: Urine Bacteria NONE SEEN /hpf (None Seen); Urine Blood Negative /uL (Negative); Urine WBC 1 /hpf (0 - 3)
[2019-08-16] MEDS ORDERED: TEMAZEPAM 15 MG CAP PO PRN (21:15)
[2019-08-16] MEDS ORDERED: ACETAMINOPHEN 325 MG TAB PO PRN (21:15)
[2019-08-16] MEDS ORDERED: DOCUSATE SOD 100 MG CAP PO PRN (21:15)
[2019-08-16] MEDS ORDERED: ONDANSETRON HCL 4 MG/2 ML VIAL IV PRN (21:15)
[2019-08-16] MEDS ORDERED: NITROGLYCERIN 0.4 MG SL TAB SL PRN (22:00)
[2019-08-16] MEDS ORDERED: MORPHINE SULF INJ 2 MG/ML SYRINGE 1ML IV PRN (22:00)
[2019-08-16] MEDS: ATORVASTATIN 20 MG TAB PO SCH (23:57)
[2019-08-16] MEDS: HYDROcodone-ACET 5/325MG TAB PO PRN (23:58)
[2019-08-16] MEDS: MONTELUKAST SODIUM 10 MG TAB PO SCH (23:58)
[2019-08-16] MEDS: PREGABALIN 25 MG CAP PO SCH (23:59)
[2019-08-17] MEDS: IPRATROPIUM BROM 0.5 MG/2.5ML INH SOL NEB SCH ×5 (00:26→22:57)
[2019-08-17] MEDS: ALBUTEROL SULF 2.5 MG/0.5ML(0.5%) NEB SOLN NEB SCH ×5 (00:27→22:57)
[2019-08-17 00:39] VITALS: BP 153/90
[2019-08-17] MEDS: HYDROcodone-ACET 5/325MG TAB PO PRN ×4 (04:09→20:20)
[2019-08-17 05:00] VITALS: BP 145/96
[2019-08-17 06:05] LABS: Calcium 8.5 mg/dL (8.5-10.1)
[2019-08-17 06:07] LABS: BUN/Creatinine Ratio 14.3
[2019-08-17 06:11] LABS: Basophils # (auto) 0.1 10 ^3/uL (0-0.2); Eosinophils # (auto) 0.1 10 ^3/uL (0-0.8); Eosinophils % (auto) 0.6 % (0.0-7.0); Monocytes # (auto) 0.7 10 ^3/uL (0-1.3); Neutrophils # (auto) 8.8 10 ^3/uL (1.6-8.6)
[2019-08-17 06:12] LABS: Basophils % (auto) 0.6 % (0.0-2.0); Hemoglobin 17.7 g/dL (13.5-17.5); Lymphocytes # (auto) 1.4 10 ^3/uL (0.4-5.4); Lymphocytes % (auto) 12.9 % (10.0-50.0); Mean Corpuscular Hemoglobin 28.5 pg (28.0-32.0); Mean Corpuscular Hgb Conc. 32.8 g/dL (32.0-36.0); Monocytes % (auto) 6.3 % (0.0-12.0); Neutrophils % (auto) 79.6 % (37.0-80.0); Platelet Count (auto) 218 10^3/uL (140-450); Red Cell Distribution Width 17.9 % (11.8-14.3)
[2019-08-17] MEDS: FUROSEMIDE 20 MG/2 ML VIAL IV SCH ×2 (06:19→18:16)
[2019-08-17] MEDS: cefTRIAXone 1GM/50ML D5W 50 ML IV SCH (08:49)
[2019-08-17 09:00] VITALS: BP 153/85
[2019-08-17] MEDS ORDERED: FUROSEMIDE 40 MG TAB PO SCH (10:00)
[2019-08-17] MEDS: PREGABALIN 25 MG CAP PO SCH ×2 (10:01→22:06)
[2019-08-17] MEDS: LOSARTAN POTASSIUM 50 MG TAB PO SCH (10:01)
[2019-08-17] MEDS: FAMOTIDINE 20 MG TAB PO SCH ×3 (10:02→22:06)
[2019-08-17] MEDS: ENOXAPARIN SOD 40 MG/0.4 ML SYRINGE SC SCH (10:02)
[2019-08-17] MEDS: NICOTINE 14 MG/24HR TOPICAL PATCH TD ONE ×2 (10:15→12:19)
[2019-08-17] MEDS ORDERED: methylPREDNISolone SOD SUCC 125 MG/2 ML VL IV ONE (10:30)
[2019-08-17] MEDS ORDERED: PANTOPRAZOLE 40 MG TAB PO ONE (10:30)
[2019-08-17] MEDS ORDERED: AZITHROMYCIN 500MG/ 250ML 250 ML IV ONE (10:30)
[2019-08-17 10:59] LABS: Folate (Folic Acid) 21.63 ng/mL (5.38-24)
[2019-08-17] MEDS ORDERED: CYANOCOBALAMIN 500 MCG TAB PO ONE (12:30)
[2019-08-17 13:00] VITALS: BP 133/75
[2019-08-17] MEDS: methylPREDNISolone SOD SUCC 125 MG/2 ML VL IV SCH ×2 (13:41→22:00)
[2019-08-17 17:00] VITALS: BP 139/83
[2019-08-17 22:00] VITALS: BP 123/69
[2019-08-17] MEDS: ATORVASTATIN 20 MG TAB PO SCH (22:05)
[2019-08-17] MEDS: MONTELUKAST SODIUM 10 MG TAB PO SCH (22:06)
[2019-08-18] MEDS: HYDROcodone-ACET 5/325MG TAB PO PRN ×3 (02:17→11:28)
[2019-08-18 05:00] VITALS: BP 128/68
[2019-08-18] MEDS: FUROSEMIDE 20 MG/2 ML VIAL IV SCH (06:26)
[2019-08-18] MEDS: methylPREDNISolone SOD SUCC 125 MG/2 ML VL IV SCH (06:27)
[2019-08-18] MEDS: PANTOPRAZOLE 40 MG TAB PO SCH ×2 (06:38→10:34)
[2019-08-18] MEDS: IPRATROPIUM BROM 0.5 MG/2.5ML INH SOL NEB SCH ×2 (07:36→12:05)
[2019-08-18] MEDS: ALBUTEROL SULF 2.5 MG/0.5ML(0.5%) NEB SOLN NEB SCH ×2 (07:36→12:05)
[2019-08-18 09:00] VITALS: BP 149/62
[2019-08-18] MEDS ORDERED: AZITHROMYCIN 250 MG TAB PO SCH (10:00)
[2019-08-18] MEDS ORDERED: AZITHROMYCIN 500MG/ 250ML 250 ML IV SCH (10:00)
[2019-08-18] MEDS ORDERED: CYANOCOBALAMIN 500 MCG TAB PO SCH (10:00)
[2019-08-18] MEDS ORDERED: NICOTINE 14 MG/24HR TOPICAL PATCH TD SCH (10:00)
[2019-08-18] MEDS: LOSARTAN POTASSIUM 50 MG TAB PO SCH (10:33)
[2019-08-18] MEDS: ENOXAPARIN SOD 40 MG/0.4 ML SYRINGE SC SCH (10:33)
[2019-08-18] MEDS: FAMOTIDINE 20 MG TAB PO SCH (10:33)
[2019-08-18] MEDS: PREGABALIN 25 MG CAP PO SCH (10:34)
[2019-08-18] MEDS: cefTRIAXone 1GM/50ML D5W 50 ML IV SCH (10:39)
[2019-08-18] MEDS ORDERED: predniSONE 20 MG TAB PO ONE (11:00)
[2019-08-18] MEDS ORDERED: CYANOCOBALAMIN (B-12) 1000 MCG/1 ML VIAL SUBCUT ONE (11:30)
[2019-08-18 13:00] VITALS: BP 134/64
[2019-08-18] MEDS ORDERED: FUROSEMIDE 100 MG/10ML VIAL IV SCH (18:00)
== END 2019-08-18 14:24 | disposition home or self-care (01) | DRG 291 ==
LOC: ER 14:42 → EDBD 14:42 → TELE 14:43 → TELE-CENTR 14:44
PROVIDERS: ADMIT Nurse Practitioner; ATTEND Internal Medicine
DX: I11.0 Hypertensive heart disease with heart failure (principal); J96.20 Acute and chronic respiratory failure, unspecified whether with hypoxia or hypercapnia; J44.1 Chronic obstructive pulmonary disease with (acute) exacerbation; I50.33 Acute on chronic diastolic (congestive) heart failure; I48.91 Unspecified atrial fibrillation; G89.29 Other chronic pain; F41.9 Anxiety disorder, unspecified; I25.10 Atherosclerotic heart disease of native coronary artery without angina pectoris; E78.5 Hyperlipidemia, unspecified; F32.9 Major depressive disorder, single episode, unspecified; G47.30 Sleep apnea, unspecified; F17.210 Nicotine dependence, cigarettes, uncomplicated; M54.9 Dorsalgia, unspecified; I25.2 Old myocardial infarction; Z83.3 Family history of diabetes mellitus; Z82.49 Family history of ischemic heart disease and other diseases of the circulatory system; Z80.9 Family history of malignant neoplasm, unspecified; Z88.6 Allergy status to analgesic agent; Z88.5 Allergy status to narcotic agent; Z88.8 Allergy status to other drugs, medicaments and biological substances; Z91.018 Allergy to other foods; Z79.899 Other long term (current) drug therapy; Z79.82 Long term (current) use of aspirin; Z71.6 Tobacco abuse counseling
CPT/HCPCS: 36415; 71046; 71250; 80048; 80053; 81001; 82607; 82728; 82746; 82962; 83036; 83615; 83735; 83880; 84443; 84484; 85025; 85379; 85610; 85730; 87804; 93005; 94640; 96361; 96365; 96367; 96375; G0378; J0696; J1885; J1956

== ENCOUNTER → 2019-08-30 | Emergency (ER) | payer MEDICARE, OTHER ==
[~2019-08-30] VITALS: Ht 165.1 cm; Wt 90.7 kg
[~2019-08-30] MED LIST changes: -ASPI81CH58 PO; +KETOROLAC TROMETH 15 mg/ml 1ML VL IV ONE; +KETOROLAC TROMETH 30 MG/ML 1ML VIAL ONE
[2019-08-30 21:52] LABS: Basophils # (auto) 0.1 10 ^3/uL (0-0.2); Basophils % (auto) 0.4 % (0.0-2.0); Eosinophils # (auto) 0.2 10 ^3/uL (0-0.8); Eosinophils % (auto) 1.2 % (0.0-7.0); Lymphocytes # (auto) 2.6 10 ^3/uL (0.4-5.4); Lymphocytes % (auto) 14.9 % (10.0-50.0); Mean Corpuscular Hemoglobin 28.6 pg (28.0-32.0); Mean Corpuscular Hgb Conc. 33.1 g/dL (32.0-36.0); Mean Corpuscular Volume 86.3 fL (80.0-100.0); Monocytes # (auto) 0.8 10 ^3/uL (0-1.3); Monocytes % (auto) 4.5 % (0.0-12.0); Nucleated Red Blood Cells % 0.1 %; Platelet Count (auto) 182 10^3/uL (140-450); Red Blood Cells 6.65 10^6/uL (4.5-5.90); Red Cell Distribution Width 18.6 % (11.8-14.3); White Blood Cell 17.7 10^3/uL (4.4-10.8)
[2019-08-30 21:58] LABS: Hematocrit 57.4 % (41.0-53.0)
[2019-08-30 22:09] LABS: INR 1.05 (0.9-1.15); Partial Thromboplastin Time 27.6 sec (23.64-32.05)
[2019-08-30 22:10] LABS: Alanine Aminotransferase 43 U/L (16-61); Albumin 3.8 g/dL (3.4-5.0); Anion Gap 8 (5-15); Aspartate Aminotransferase 28 U/L (15-37); BUN/Creatinine Ratio 20.5; Blood Urea Nitrogen 17 mg/dL (7-18); Carbon Dioxide 26 mmol/L (21-32); Chloride 104 mmol/L (98-107); GFR African American 121 mL/min; GFR Non-African American 100 mL/min; Glucose 91 mg/dL (74-106); Magnesium 2.2 mg/dL (1.6-2.6); Potassium 4.8 mmol/L (3.5-5.1); Sodium 138 mmol/L (136-145)
[2019-08-30 22:15] LABS: Alkaline Phosphatase 84 U/L (45-117); Bilirubin, Total 0.5 mg/dL (0.2-1.0); Total Protein 7.7 g/dL (6.4-8.2)
[2019-08-30 22:39] LABS: Urine WBC None Seen /hpf (0 - 3)
[2019-08-30 23:05] LABS: Urine Bacteria NONE SEEN /hpf (None Seen); Urine Blood Negative /uL (Negative); Urine Mucus FEW (None Seen); Urine Specific Gravity 1.017 (1.001-1.035)
[2019-08-30 23:41] VITALS: BP 141/78
== END | disposition home or self-care (01) ==
LOC: ER 20:52
DX: J44.9 Chronic obstructive pulmonary disease, unspecified (principal); I25.10 Atherosclerotic heart disease of native coronary artery without angina pectoris; F32.9 Major depressive disorder, single episode, unspecified; F41.9 Anxiety disorder, unspecified; E66.9 Obesity, unspecified; I11.0 Hypertensive heart disease with heart failure; I50.9 Heart failure, unspecified; F17.210 Nicotine dependence, cigarettes, uncomplicated
CPT/HCPCS: 36415; 71045; 80053; 81001; 83605; 83735; 83880; 84443; 84484; 85025; 85379; 85610; 85730; 96374; 99285; J1885

== ENCOUNTER 2019-11-14 22:46 | Emergency (ER) | payer MEDICARE, OTHER ==
[~2019-11-14] VITALS: Ht 165.1 cm; Wt 90.7 kg
[~2019-11-14 22:46] MED LIST changes: -KETOROLAC TROMETH 15 mg/ml 1ML VL IV ONE; -KETOROLAC TROMETH 30 MG/ML 1ML VIAL ONE
[2019-11-15] LABS: Basophils # (auto) 0.1 10 ^3/uL (0-0.2); Basophils % (auto) 0.5 % (0.0-2.0); Eosinophils # (auto) 0.1 10 ^3/uL (0-0.8); Eosinophils % (auto) 0.6 % (0.0-7.0); Hematocrit 54.7 % (41.0-53.0); Hemoglobin 17.7 g/dL (13.5-17.5); Lymphocytes # (auto) 2.5 10 ^3/uL (0.4-5.4); Lymphocytes % (auto) 14.3 % (10.0-50.0); Mean Corpuscular Hemoglobin 28.7 pg (28.0-32.0); Mean Corpuscular Hgb Conc. 32.5 g/dL (32.0-36.0); Mean Corpuscular Volume 88.5 fL (80.0-100.0); Monocytes # (auto) 1.2 10 ^3/uL (0-1.3); Neutrophils # (auto) 13.5 10 ^3/uL (1.6-8.6); Neutrophils % (auto) 77.6 % (37.0-80.0); Nucleated Red Blood Cells % 0.1 %; Platelet Count (auto) 251 10^3/uL (140-450); Red Blood Cells 6.18 10^6/uL (4.5-5.90); Red Cell Distribution Width 18.6 % (11.8-14.3); White Blood Cell 17.4 10^3/uL (4.4-10.8)
[2019-11-15] MEDS ORDERED: ALBUTEROL SULF 2.5 MG/0.5ML(0.5%) NEB SOLN HHN ONE
[2019-11-15] MEDS ORDERED: IPRATROPIUM BROM 0.5 MG/2.5ML INH SOL HHN ONE
[2019-11-15] MEDS ORDERED: methylPREDNISolone SOD SUCC 125 MG/2 ML VL IV ONE
[2019-11-15 00:20] LABS: INR 1.12 (0.9-1.15); Partial Thromboplastin Time 26.7 sec (23.64-32.05)
[2019-11-15 00:23] LABS: Alanine Aminotransferase 42 U/L (16-61); Albumin 3.5 g/dL (3.4-5.0); Anion Gap 6 (5-15); Aspartate Aminotransferase 23 U/L (15-37); BUN/Creatinine Ratio 20.8; Blood Urea Nitrogen 20 mg/dL (7-18); Calcium 8.6 mg/dL (8.5-10.1); Carbon Dioxide 30 mmol/L (21-32); Chloride 99 mmol/L (98-107); GFR African American 102 mL/min; GFR Non-African American 84 mL/min; Glucose 81 mg/dL (74-106); Magnesium 2.4 mg/dL (1.6-2.6); Potassium 3.6 mmol/L (3.5-5.1); Sodium 135 mmol/L (136-145)
[2019-11-15 00:27] LABS: Alkaline Phosphatase 90 U/L (45-117); Bilirubin, Total 0.4 mg/dL (0.2-1.0); Total Protein 7.1 g/dL (6.4-8.2)
[2019-11-15 02:00] VITALS: BP 141/107
== END 2019-11-15 03:10 | disposition left against medical advice (07) ==
LOC: ER 22:47
DX: J44.9 Chronic obstructive pulmonary disease, unspecified (principal); J96.21 Acute and chronic respiratory failure with hypoxia; I11.0 Hypertensive heart disease with heart failure; I50.9 Heart failure, unspecified; E11.9 Type 2 diabetes mellitus without complications; E78.5 Hyperlipidemia, unspecified; Z87.891 Personal history of nicotine dependence; Z86.73 Personal history of transient ischemic attack (TIA), and cerebral infarction without residual deficits
CPT/HCPCS: 36415; 36600; 71045; 80053; 82805; 83735; 83880; 84484; 85025; 85610; 85730; 93005; 96374; 99285; J2930; J7644

== ENCOUNTER 2019-11-17 04:36 | Inpatient (IN) | payer MEDICARE, OTHER ==
[~2019-11-17] VITALS: Ht 162.6 cm; Wt 98.0 kg
[2019-11-17] MEDS ORDERED: IPRATROPIUM BROM 0.5 MG/2.5ML INH SOL NEB ONE (04:45)
[2019-11-17] MEDS ORDERED: ALBUTEROL SULF 2.5 MG/0.5ML(0.5%) NEB SOLN NEB ONE (04:45)
[2019-11-17] MEDS ORDERED: methylPREDNISolone SOD SUCC 125 MG/2 ML VL IV ONE (08:00)
[2019-11-17] MEDS ORDERED: FUROSEMIDE 40 MG/4 ML VIAL IV ONE (08:00)
[2019-11-17 08:03] LABS: Basophils # (auto) 0.1 10 ^3/uL (0-0.2); Basophils % (auto) 0.5 % (0.0-2.0); Eosinophils # (auto) 0 10 ^3/uL (0-0.8); Eosinophils % (auto) 0.2 % (0.0-7.0); Hematocrit 49.2 % (41.0-53.0); Lymphocytes # (auto) 2.1 10 ^3/uL (0.4-5.4); Lymphocytes % (auto) 15.1 % (10.0-50.0); Mean Corpuscular Hemoglobin 28.8 pg (28.0-32.0); Mean Corpuscular Hgb Conc. 32.5 g/dL (32.0-36.0); Mean Corpuscular Volume 88.8 fL (80.0-100.0); Monocytes % (auto) 7.4 % (0.0-12.0); Neutrophils # (auto) 10.9 10 ^3/uL (1.6-8.6); Neutrophils % (auto) 76.8 % (37.0-80.0); Nucleated Red Blood Cells % 0.1 %; Platelet Count (auto) 191 10^3/uL (140-450); Red Blood Cells 5.54 10^6/uL (4.5-5.90); Red Cell Distribution Width 18.7 % (11.8-14.3); White Blood Cell 14.1 10^3/uL (4.4-10.8)
[2019-11-17 08:19] LABS: Calcium 7.5 mg/dL (8.5-10.1); Potassium 3.1 mmol/L (3.5-5.1)
[2019-11-17 08:23] LABS: Bilirubin, Total 0.3 mg/dL (0.2-1.0); Total Protein 6.1 g/dL (6.4-8.2)
[2019-11-17] MEDS ORDERED: NITROGLYCERIN 0.4 MG SL TAB SL PRN (10:00)
[2019-11-17] MEDS ORDERED: ONDANSETRON HCL 4 MG/2 ML VIAL IV PRN (10:00)
[2019-11-17] MEDS ORDERED: MORPHINE SULF INJ 2 MG/ML SYRINGE 1ML IV PRN (10:00)
[2019-11-17] MEDS: FUROSEMIDE 40 MG/4 ML VIAL IV SCH ×2 (11:14→22:24)
[2019-11-17] MEDS: methylPREDNISolone SOD SUCC 40 MG/ML VL IV SCH ×2 (11:14→22:24)
[2019-11-17] MEDS: levoFLOXacin 500MG 100 ML IV SCH (11:38)
[2019-11-17] MEDS: HYDROmorphone HCL 2 MG/ML VL IV PRN (13:28)
[2019-11-17 21:11] VITALS: BP 142/87
[2019-11-17] MEDS: IPRATROPIUM BROM 0.5 MG/2.5ML INH SOL NEB PRN (22:05)
[2019-11-17] MEDS: ALBUTEROL SULF 2.5 MG/0.5ML(0.5%) NEB SOLN NEB PRN (22:05)
[2019-11-17] MEDS: BUDESONIDE (INHALATION) 0.5 MG/2 ML NEB NEB SCH (22:05)
[2019-11-17 22:32] VITALS: BP 153/76
[2019-11-17 22:46] VITALS: BP 153/76
[2019-11-18] MEDS: HYDROmorphone HCL 2 MG/ML VL IV PRN ×2 (01:30→16:39)
[2019-11-18] MEDS ORDERED: FURO20TA3 PO (03:38)
[2019-11-18] MEDS ORDERED: POTA-220 PO (03:40)
[2019-11-18] MEDS ORDERED: PANT40T PO (03:40)
[2019-11-18] MEDS: ALBUTEROL SULF 2.5 MG/0.5ML(0.5%) NEB SOLN NEB PRN ×3 (04:42→22:15)
[2019-11-18] MEDS: IPRATROPIUM BROM 0.5 MG/2.5ML INH SOL NEB PRN ×3 (04:42→22:15)
[2019-11-18 05:30] VITALS: BP 112/76
[2019-11-18] MEDS: methylPREDNISolone SOD SUCC 40 MG/ML VL IV SCH ×3 (06:00→21:36)
[2019-11-18 06:25] LABS: Basophils # (auto) 0.1 10 ^3/uL (0-0.2); Basophils % (auto) 0.4 % (0.0-2.0); Eosinophils # (auto) 0 10 ^3/uL (0-0.8); Hematocrit 49.8 % (41.0-53.0); Hemoglobin 16.2 g/dL (13.5-17.5); Lymphocytes # (auto) 0.7 10 ^3/uL (0.4-5.4); Lymphocytes % (auto) 4.7 % (10.0-50.0); Mean Corpuscular Hemoglobin 28.8 pg (28.0-32.0); Mean Corpuscular Hgb Conc. 32.5 g/dL (32.0-36.0); Mean Corpuscular Volume 88.6 fL (80.0-100.0); Monocytes # (auto) 0.5 10 ^3/uL (0-1.3); Neutrophils # (auto) 13.9 10 ^3/uL (1.6-8.6); Neutrophils % (auto) 91.9 % (37.0-80.0); Platelet Count (auto) 206 10^3/uL (140-450); Red Blood Cells 5.62 10^6/uL (4.5-5.90); Red Cell Distribution Width 18.4 % (11.8-14.3); White Blood Cell 15.2 10^3/uL (4.4-10.8)
[2019-11-18 06:47] LABS: Albumin 3.2 g/dL (3.4-5.0); Calcium 7.9 mg/dL (8.5-10.1); Potassium 4.3 mmol/L (3.5-5.1)
[2019-11-18 06:50] LABS: BUN/Creatinine Ratio 24.7; Bilirubin, Total 0.4 mg/dL (0.2-1.0); Total Protein 6.4 g/dL (6.4-8.2)
[2019-11-18 08:50] VITALS: BP 159/92
[2019-11-18] MEDS: BUDESONIDE (INHALATION) 0.5 MG/2 ML NEB NEB SCH ×2 (10:39→22:15)
[2019-11-18] MEDS: levoFLOXacin 500MG 100 ML IV SCH (11:18)
[2019-11-18] MEDS: FUROSEMIDE 40 MG/4 ML VIAL IV SCH ×2 (11:18→21:36)
[2019-11-18 13:06] VITALS: BP 122/72
[2019-11-18 17:17] VITALS: BP 132/89
[2019-11-18 22:00] VITALS: BP 130/68
[2019-11-19] MEDS: IPRATROPIUM BROM 0.5 MG/2.5ML INH SOL NEB PRN ×4 (02:22→21:41)
[2019-11-19] MEDS: ALBUTEROL SULF 2.5 MG/0.5ML(0.5%) NEB SOLN NEB PRN ×4 (02:22→21:41)
[2019-11-19 05:30] VITALS: BP 127/68
[2019-11-19] MEDS: methylPREDNISolone SOD SUCC 40 MG/ML VL IV SCH (05:49)
[2019-11-19] MEDS: BUDESONIDE (INHALATION) 0.5 MG/2 ML NEB NEB SCH ×2 (06:52→21:41)
[2019-11-19 07:30] VITALS: BP 153/98
[2019-11-19] MEDS: levoFLOXacin 500MG 100 ML IV SCH (10:26)
[2019-11-19] MEDS: FUROSEMIDE 40 MG/4 ML VIAL IV SCH (10:26)
[2019-11-19 12:30] VITALS: BP 159/100
[2019-11-19] MEDS ORDERED: hydrALAZINE HCL 20 MG/ML VL IV ONE (12:30)
[2019-11-19] MEDS ORDERED: cloNIDine HCL 0.1 MG TAB PO PRN (15:00)
[2019-11-19] MEDS ORDERED: METOPROLOL TARTRATE 25 MG TAB PO ONE (15:00)
[2019-11-19] MEDS ORDERED: LABETALOL HCL 5 MG/ML 4ML SYRINGE IV PRN (15:30)
[2019-11-19] MEDS ORDERED: ALPRAZolam 0.25 MG TAB PO PRN (15:30)
[2019-11-19 17:22] VITALS: BP 144/88
[2019-11-19] MEDS ORDERED: PANTOPRAZOLE 40 MG/10 ML VIAL INJ IV ONE (19:30)
[2019-11-19] MEDS: METOPROLOL TARTRATE 50 MG TAB PO SCH (22:00)
[2019-11-19] MEDS: HYDROmorphone HCL 2 MG/ML VL IV PRN (23:41)
[2019-11-20] MEDS: ALBUTEROL SULF 2.5 MG/0.5ML(0.5%) NEB SOLN NEB PRN ×2 (01:50→10:09)
[2019-11-20] MEDS: IPRATROPIUM BROM 0.5 MG/2.5ML INH SOL NEB PRN ×2 (01:50→10:09)
[2019-11-20 05:00] VITALS: BP 143/81
[2019-11-20 08:54] VITALS: BP 150/89
[2019-11-20] MEDS: METOPROLOL TARTRATE 50 MG TAB PO SCH (08:55)
[2019-11-20] MEDS ORDERED: predniSONE 20 MG TAB PO SCH (10:00)
[2019-11-20] MEDS ORDERED: PANTOPRAZOLE 40 MG/10 ML VIAL INJ IV SCH (10:00)
[2019-11-20] MEDS ORDERED: levoFLOXacin 500 MG TAB PO SCH (10:00)
[2019-11-20] MEDS: BUDESONIDE (INHALATION) 0.5 MG/2 ML NEB NEB SCH (10:09)
[2019-11-20 11:41] LABS: Albumin 3.1 g/dL (3.4-5.0)
[2019-11-20 11:45] LABS: BUN/Creatinine Ratio 20.8; Bilirubin, Total 0.5 mg/dL (0.2-1.0); Total Protein 6.2 g/dL (6.4-8.2)
[2019-11-20] MEDS ORDERED: BUDESONIDE (INHALATION) 0.5 MG/2 ML NEB NEB SCH ×2 (13:00→22:00)
[2019-11-20] MEDS ORDERED: IOHEXOL 350 MG/ML 100ML IJ ONE (13:02)
[2019-11-20] MEDS: HYDROmorphone HCL 2 MG/ML VL IV PRN (13:04)
[2019-11-20 13:05] VITALS: BP 105/73
[2019-11-20 16:25] VITALS: BP 150/89
[2019-11-20 16:42] VITALS: BP 130/65
[2019-11-20] MEDS ORDERED: ALBUTEROL SULF 2.5 MG/0.5ML(0.5%) NEB SOLN NEB SCH (18:00)
[2019-11-20] MEDS ORDERED: IPRATROPIUM BROM 0.5 MG/2.5ML INH SOL NEB SCH (18:00)
== END 2019-11-20 17:25 | disposition home or self-care (01) | DRG 189 ==
LOC: ER 04:36 → TELE 04:37 → TELE-WESTW 22:32
PROVIDERS: ADMIT Internal Medicine; ATTEND Internal Medicine
DX: J96.21 Acute and chronic respiratory failure with hypoxia (principal); J44.1 Chronic obstructive pulmonary disease with (acute) exacerbation; J98.11 Atelectasis; I11.0 Hypertensive heart disease with heart failure; E66.9 Obesity, unspecified; Z68.34 Body mass index [BMI] 34.0-34.9, adult; G89.4 Chronic pain syndrome; M79.7 Fibromyalgia; Z99.3 Dependence on wheelchair; F17.210 Nicotine dependence, cigarettes, uncomplicated; I25.10 Atherosclerotic heart disease of native coronary artery without angina pectoris; E11.40 Type 2 diabetes mellitus with diabetic neuropathy, unspecified; E78.5 Hyperlipidemia, unspecified; F32.9 Major depressive disorder, single episode, unspecified; F41.9 Anxiety disorder, unspecified; R00.0 Tachycardia, unspecified; I27.20 Pulmonary hypertension, unspecified; G20 Parkinson's disease; Z79.51 Long term (current) use of inhaled steroids; Z80.9 Family history of malignant neoplasm, unspecified; Z82.49 Family history of ischemic heart disease and other diseases of the circulatory system; Z86.73 Personal history of transient ischemic attack (TIA), and cerebral infarction without residual deficits; Z83.3 Family history of diabetes mellitus; I25.2 Old myocardial infarction; Z88.5 Allergy status to narcotic agent; Z88.8 Allergy status to other drugs, medicaments and biological substances; Z91.19 Patient's noncompliance with other medical treatment and regimen; Z71.6 Tobacco abuse counseling; Z87.442 Personal history of urinary calculi; I50.9 Heart failure, unspecified
CPT/HCPCS: 36415; 36600; 71045; 71275; 80053; 82805; 83735; 83880; 84439; 84443; 84484; 85025; 85610; 85730; 93005; 93306; 94640; 96374; 99291; C9113; G0378; J1956

== ENCOUNTER 2019-11-25 16:04 | Emergency (ER) | payer MEDICARE, OTHER ==
[~2019-11-25] VITALS: Ht 170.2 cm; Wt 81.6 kg
[~2019-11-25 16:04] MED LIST changes: +FURO20TA3 PO; +PANT40T PO; +POTA-220 PO
[2019-11-25 16:05] VITALS: BP 113/74
== END 2019-11-25 19:52 | disposition left against medical advice (07) ==
LOC: ER 16:04
DX: M25.512 Pain in left shoulder (principal); Z53.21 Procedure and treatment not carried out due to patient leaving prior to being seen by health care provider
CPT/HCPCS: 73030

== ENCOUNTER → 2019-11-30 | Emergency (ER) | payer MEDICARE, OTHER ==
[~2019-11-30] VITALS: Ht 165.1 cm; Wt 81.6 kg
[~2019-11-30] MED LIST changes: +ALBUTEROL SULF 2.5 MG/0.5ML(0.5%) NEB SOLN HHN ONE; +AZITHROMYCIN 500MG/ 250ML 250 ML IV ONE; +IPRATROPIUM BROM 0.5 MG/2.5ML INH SOL HHN ONE; +KETOROLAC TROMETH 30 MG/ML 1ML VIAL IV ONE; +POTASSIUM EFFERVESENT TAB 25 MEQ PO ONE; +methylPREDNISolone SOD SUCC 125 MG/2 ML VL IV ONE
[2019-11-30 03:00] LABS: Basophils # (auto) 0.1 10 ^3/uL (0-0.2); Basophils % (auto) 0.6 % (0.0-2.0); Eosinophils # (auto) 0.1 10 ^3/uL (0-0.8); Hematocrit 49.6 % (41.0-53.0); Hemoglobin 16.5 g/dL (13.5-17.5); Lymphocytes # (auto) 2.5 10 ^3/uL (0.4-5.4); Lymphocytes % (auto) 17.9 % (10.0-50.0); Mean Corpuscular Hemoglobin 29.1 pg (28.0-32.0); Mean Corpuscular Hgb Conc. 33.2 g/dL (32.0-36.0); Mean Corpuscular Volume 87.8 fL (80.0-100.0); Monocytes # (auto) 0.8 10 ^3/uL (0-1.3); Monocytes % (auto) 5.9 % (0.0-12.0); Neutrophils # (auto) 10.2 10 ^3/uL (1.6-8.6); Neutrophils % (auto) 74.6 % (37.0-80.0); Nucleated Red Blood Cells % 0.1 %; Platelet Count (auto) 198 10^3/uL (140-450); Red Blood Cells 5.65 10^6/uL (4.5-5.90); Red Cell Distribution Width 18.5 % (11.8-14.3); White Blood Cell 13.7 10^3/uL (4.4-10.8)
[2019-11-30 03:21] LABS: Albumin 3.7 g/dL (3.4-5.0); Anion Gap 3 (5-15); Blood Urea Nitrogen 13 mg/dL (7-18); Calcium 8.2 mg/dL (8.5-10.1); Carbon Dioxide 31 mmol/L (21-32); Chloride 102 mmol/L (98-107); Sodium 136 mmol/L (136-145)
[2019-11-30 03:25] LABS: Potassium 2.9 mmol/L (3.5-5.1)
[2019-11-30 03:29] LABS: Alanine Aminotransferase 68 U/L (16-61); Alkaline Phosphatase 83 U/L (45-117); Aspartate Aminotransferase 55 U/L (15-37); BUN/Creatinine Ratio 15.5; GFR African American 119 mL/min; GFR Non-African American 98 mL/min; Glucose 102 mg/dL (74-106); Total Protein 7.2 g/dL (6.4-8.2)
[2019-11-30 05:35] VITALS: BP 168/87
[2019-11-30 06:24] LABS: Basophils # (auto) 0 10 ^3/uL (0-0.2); Basophils % (auto) 0.3 % (0.0-2.0); Eosinophils # (auto) 0.2 10 ^3/uL (0-0.8); Eosinophils % (auto) 1.4 % (0.0-7.0); Hematocrit 51.4 % (41.0-53.0); Hemoglobin 16.7 g/dL (13.5-17.5); Lymphocytes # (auto) 2.6 10 ^3/uL (0.4-5.4); Lymphocytes % (auto) 19.3 % (10.0-50.0); Mean Corpuscular Hemoglobin 28.6 pg (28.0-32.0); Mean Corpuscular Hgb Conc. 32.6 g/dL (32.0-36.0); Mean Corpuscular Volume 87.8 fL (80.0-100.0); Monocytes # (auto) 0.8 10 ^3/uL (0-1.3); Monocytes % (auto) 5.9 % (0.0-12.0); Neutrophils # (auto) 9.9 10 ^3/uL (1.6-8.6); Neutrophils % (auto) 73.1 % (37.0-80.0); Nucleated Red Blood Cells % 0.1 %; Platelet Count (auto) 201 10^3/uL (140-450); Red Blood Cells 5.85 10^6/uL (4.5-5.90); Red Cell Distribution Width 18.1 % (11.8-14.3); White Blood Cell 13.5 10^3/uL (4.4-10.8)
[2019-11-30 06:44] LABS: Albumin 3.7 g/dL (3.4-5.0); Calcium 8.3 mg/dL (8.5-10.1); Magnesium 2.3 mg/dL (1.6-2.6)
[2019-11-30 07:09] LABS: BUN/Creatinine Ratio 15.4; CRP High Sensitivity 1.13 mg/dL (< 0.3); Total Protein 7.3 g/dL (6.4-8.2)
== END | disposition home or self-care (01) ==
LOC: ER 00:51
DX: J96.21 Acute and chronic respiratory failure with hypoxia (principal); J44.0 Chronic obstructive pulmonary disease with (acute) lower respiratory infection; J18.9 Pneumonia, unspecified organism; J44.1 Chronic obstructive pulmonary disease with (acute) exacerbation; E87.6 Hypokalemia; I11.0 Hypertensive heart disease with heart failure; I50.9 Heart failure, unspecified; J44.9 Chronic obstructive pulmonary disease, unspecified; E11.9 Type 2 diabetes mellitus without complications; E78.5 Hyperlipidemia, unspecified; I25.2 Old myocardial infarction; F17.210 Nicotine dependence, cigarettes, uncomplicated; Z20.828 Contact with and (suspected) exposure to other viral communicable diseases
CPT/HCPCS: 36415; 36600; 71045; 80053; 82728; 82805; 83735; 83880; 84484; 85025; 85379; 86141; 87040; 93005; 94640; 96374; 96375; 99291; C9803; J1885; J2930; J7644; U0003

== ENCOUNTER 2019-12-02 20:25 | Inpatient (IN) | payer MEDICARE, OTHER ==
[~2019-12-02] VITALS: Ht 165.1 cm; Wt 100.6 kg
[~2019-12-02 20:25] MED LIST changes: -ALBUTEROL SULF 2.5 MG/0.5ML(0.5%) NEB SOLN HHN ONE; -AZITHROMYCIN 500MG/ 250ML 250 ML IV ONE; -IPRATROPIUM BROM 0.5 MG/2.5ML INH SOL HHN ONE; -KETOROLAC TROMETH 30 MG/ML 1ML VIAL IV ONE; -POTASSIUM EFFERVESENT TAB 25 MEQ PO ONE; -methylPREDNISolone SOD SUCC 125 MG/2 ML VL IV ONE
[2019-12-02] MEDS ORDERED: ALBUTEROL SULF 2.5 MG/0.5ML(0.5%) NEB SOLN NEB ONE (21:00)
[2019-12-02] MEDS ORDERED: methylPREDNISolone SOD SUCC 125 MG/2 ML VL IV ONE ×2 (21:00→22:45)
[2019-12-02] MEDS ORDERED: cefTRIAXone 1GM/50ML D5W 50 ML IV ONE ×2 (21:00→22:45)
[2019-12-02 22:10] LABS: Basophils # (auto) 0 10 ^3/uL (0-0.2); Basophils % (auto) 0.3 % (0.0-2.0); Eosinophils # (auto) 0.2 10 ^3/uL (0-0.8); Eosinophils % (auto) 1.6 % (0.0-7.0); Hematocrit 48.9 % (41.0-53.0); Lymphocytes # (auto) 1.9 10 ^3/uL (0.4-5.4); Lymphocytes % (auto) 19.7 % (10.0-50.0); Mean Corpuscular Hemoglobin 29.1 pg (28.0-32.0); Mean Corpuscular Hgb Conc. 32.6 g/dL (32.0-36.0); Mean Corpuscular Volume 89.3 fL (80.0-100.0); Monocytes # (auto) 0.5 10 ^3/uL (0-1.3); Monocytes % (auto) 5.4 % (0.0-12.0); Neutrophils # (auto) 7.2 10 ^3/uL (1.6-8.6); Platelet Count (auto) 164 10^3/uL (140-450); Red Blood Cells 5.48 10^6/uL (4.5-5.90); Red Cell Distribution Width 18.2 % (11.8-14.3); White Blood Cell 9.9 10^3/uL (4.4-10.8)
[2019-12-02 22:27] LABS: Albumin 3.3 g/dL (3.4-5.0); Anion Gap 4 (5-15); Blood Urea Nitrogen 8 mg/dL (7-18); Carbon Dioxide 30 mmol/L (21-32); Chloride 104 mmol/L (98-107); Glucose 109 mg/dL (74-106); Magnesium 2.2 mg/dL (1.6-2.6); Potassium 3.5 mmol/L (3.5-5.1); Sodium 138 mmol/L (136-145)
[2019-12-02 22:34] LABS: Alanine Aminotransferase 58 U/L (16-61); Alkaline Phosphatase 81 U/L (45-117); Aspartate Aminotransferase 30 U/L (15-37); BUN/Creatinine Ratio 9.2; Bilirubin, Total 0.3 mg/dL (0.2-1.0); CRP High Sensitivity 0.47 mg/dL (< 0.3); GFR African American 114 mL/min; GFR Non-African American 95 mL/min; Lactate Dehydrogenase 294 U/L (87-241); Total Protein 6.8 g/dL (6.4-8.2)
[2019-12-02] MEDS ORDERED: KETOROLAC TROMETH 30 MG/ML 1ML VIAL IV ONE (23:15)
[2019-12-03] MEDS ORDERED: MORPHINE SULF INJ 2 MG/ML SYRINGE 1ML IV PRN (00:15)
[2019-12-03] MEDS ORDERED: DOCUSATE SOD 100 MG CAP PO PRN (00:15)
[2019-12-03] MEDS ORDERED: ONDANSETRON HCL 4 MG/2 ML VIAL IV PRN (00:15)
[2019-12-03] MEDS ORDERED: TEMAZEPAM 15 MG CAP PO PRN (00:15)
[2019-12-03] MEDS ORDERED: NITROGLYCERIN 0.4 MG SL TAB SL PRN (00:15)
[2019-12-03] MEDS ORDERED: METOCLOPRAMIDE HCL 5MG/ml INJ 2ml VIAL IV PRN (00:15)
[2019-12-03] MEDS ORDERED: LORazepam 0.5 MG TAB PO PRN (00:15)
[2019-12-03] MEDS ORDERED: SODIUM CHLORIDE 0.9% 1,000 ML IV SCH (00:15)
[2019-12-03 00:45] LABS: Urine Bacteria NONE SEEN /hpf (None Seen); Urine Blood Negative /uL (Negative); Urine Specific Gravity 1.019 (1.001-1.035); Urine WBC <1 /hpf (0 - 3)
[2019-12-03] MEDS ORDERED: ALBUTEROL SULF HFA 90MCG INH 200DOSE IN SCH (06:00)
[2019-12-03] MEDS: PREGABALIN 25 MG CAP PO SCH ×3 (06:53→22:19)
[2019-12-03] MEDS: CARISOPRODOL 350 MG TAB PO SCH ×3 (06:53→22:19)
[2019-12-03] MEDS ORDERED: diphenhdrAMINE HCL 25 MG CAP PO PRN (10:00)
[2019-12-03] MEDS ORDERED: ASCORBIC ACID 1,000 MG TAB PO SCH (10:00)
[2019-12-03] MEDS ORDERED: CHOLECALCIFEROL (VITD3) 1,000UNIT=25mCg TAB PO SCH (10:00)
[2019-12-03 10:20] LABS: Basophils # (auto) 0 10 ^3/uL (0-0.2); Basophils % (auto) 0.1 % (0.0-2.0); Eosinophils # (auto) 0 10 ^3/uL (0-0.8); Hematocrit 49.4 % (41.0-53.0); Hemoglobin 15.8 g/dL (13.5-17.5); Lymphocytes # (auto) 0.3 10 ^3/uL (0.4-5.4); Lymphocytes % (auto) 3.7 % (10.0-50.0); Mean Corpuscular Hemoglobin 29.2 pg (28.0-32.0); Mean Corpuscular Hgb Conc. 31.9 g/dL (32.0-36.0); Mean Corpuscular Volume 91.3 fL (80.0-100.0); Monocytes # (auto) 0 10 ^3/uL (0-1.3); Monocytes % (auto) 0.6 % (0.0-12.0); Neutrophils # (auto) 8.1 10 ^3/uL (1.6-8.6); Neutrophils % (auto) 95.6 % (37.0-80.0); Platelet Count (auto) 169 10^3/uL (140-450); Red Cell Distribution Width 18.4 % (11.8-14.3); White Blood Cell 8.5 10^3/uL (4.4-10.8)
[2019-12-03 10:30] LABS: Albumin 3.4 g/dL (3.4-5.0); Calcium 8.5 mg/dL (8.5-10.1); Potassium 4.4 mmol/L (3.5-5.1)
[2019-12-03 10:33] LABS: BUN/Creatinine Ratio 13.7; Bilirubin, Total 0.3 mg/dL (0.2-1.0); Total Protein 6.8 g/dL (6.4-8.2)
[2019-12-03] MEDS: IPRATROPIUM BROM 0.5 MG/2.5ML INH SOL NEB PRN ×3 (10:38→21:19)
[2019-12-03] MEDS: ALBUTEROL SULF 2.5 MG/0.5ML(0.5%) NEB SOLN NEB PRN ×3 (10:38→21:19)
[2019-12-03] MEDS: PANTOPRAZOLE 40 MG TAB PO SCH (10:47)
[2019-12-03] MEDS: FUROSEMIDE 20 MG TAB PO SCH (10:47)
[2019-12-03] MEDS: POTASSIUM CHL 20 Meq TABLET PO SCH (10:47)
[2019-12-03] MEDS: DOXYCYCLINE 100 MG TAB/CAP PO SCH ×2 (10:48→22:19)
[2019-12-03] MEDS: ENOXAPARIN SOD 40 MG/0.4 ML SYRINGE SC SCH (10:55)
[2019-12-03 11:00] VITALS: BP 116/76
[2019-12-03] MEDS: HYDROcodone-ACET 5/325MG TAB PO PRN (15:20)
--- NOTE | 2019-12-03 17:45 | NUR ---
Telemetry admit from ER DONNELL MARCOS admitted to Telemetry unit NO SBAR received. Patient oriented to MIRNA NAPOLESRN primary RN, unit, room, bed, and unit policies regarding patient care and visiting hours. Patient now on continuous telemetry monitoring, tele box # 50 and telemetry reading on arrival to unit is [address] Patient placed on bedside oxygen @ 4L N/C, weighed by bedscale and encouraged to call if they need something. Bed in lowest/locked position, bed rails up x2, call light within reach. All questions and concerns addressed, patient verbalized understanding.
[2019-12-03 18:00] VITALS: BP 120/85
--- NOTE | 2019-12-03 19:26 | NUR ---
Opening Shift Note Assumed care of patient, awake and alert. No S/S of distress/SOB or pain. Instructed on POC and to call for assistance PRN. Bed is locked in lowest position with side rails up x1 per patients request. Will continue to monitor for changes Q1hr and PRN.
[2019-12-03 22:00] VITALS: BP 115/75
[2019-12-04] MEDS: ALBUTEROL SULF 2.5 MG/0.5ML(0.5%) NEB SOLN NEB PRN ×2 (02:42→06:50)
[2019-12-04] MEDS: IPRATROPIUM BROM 0.5 MG/2.5ML INH SOL NEB PRN ×2 (02:42→06:50)
[2019-12-04 05:36] LABS: Basophils # (auto) 0 10 ^3/uL (0-0.2); Basophils % (auto) 0.4 % (0.0-2.0); Eosinophils # (auto) 0 10 ^3/uL (0-0.8); Eosinophils % (auto) 0.1 % (0.0-7.0); Hematocrit 45.3 % (41.0-53.0); Hemoglobin 14.6 g/dL (13.5-17.5); Lymphocytes # (auto) 0.9 10 ^3/uL (0.4-5.4); Lymphocytes % (auto) 7.6 % (10.0-50.0); Mean Corpuscular Hemoglobin 29.1 pg (28.0-32.0); Mean Corpuscular Hgb Conc. 32.2 g/dL (32.0-36.0); Mean Corpuscular Volume 90.4 fL (80.0-100.0); Monocytes # (auto) 0.6 10 ^3/uL (0-1.3); Monocytes % (auto) 5.3 % (0.0-12.0); Neutrophils # (auto) 10.4 10 ^3/uL (1.6-8.6); Neutrophils % (auto) 86.6 % (37.0-80.0); Platelet Count (auto) 171 10^3/uL (140-450); Red Blood Cells 5.01 10^6/uL (4.5-5.90); Red Cell Distribution Width 18.8 % (11.8-14.3)
[2019-12-04] MEDS: CARISOPRODOL 350 MG TAB PO SCH ×3 (05:59→21:54)
[2019-12-04] MEDS: HYDROcodone-ACET 5/325MG TAB PO PRN (05:59)
[2019-12-04] MEDS: PREGABALIN 25 MG CAP PO SCH ×3 (05:59→21:54)
[2019-12-04 06:06] LABS: Potassium 4.2 mmol/L (3.5-5.1)
[2019-12-04 06:11] LABS: Albumin 3.1 g/dL (3.4-5.0); BUN/Creatinine Ratio 17.7; Bilirubin, Total 0.2 mg/dL (0.2-1.0); Calcium 8.2 mg/dL (8.5-10.1); Total Protein 6.2 g/dL (6.4-8.2)
--- NOTE | 2019-12-04 08:15 | NUR ---
Opening Shift Note Assumed care of patient, awake and alert. No S/S of distress/SOB or pain. Instructed on POC and to call for assistance PRN. Bed is locked in lowest position with side rails up x1 per patients request. Instructed patient on safety risk, per patient "He always only wants 1 side rail up and he won't fall." Will continue to monitor for changes Q1hr and PRN.
[2019-12-04 09:16] VITALS: BP 114/78
[2019-12-04] MEDS: POTASSIUM CHL 20 Meq TABLET PO SCH (09:25)
[2019-12-04] MEDS: DOXYCYCLINE 100 MG TAB/CAP PO SCH ×2 (09:25→21:54)
[2019-12-04] MEDS: ENOXAPARIN SOD 40 MG/0.4 ML SYRINGE SC SCH (09:25)
[2019-12-04] MEDS: FUROSEMIDE 20 MG TAB PO SCH (09:26)
[2019-12-04] MEDS: PANTOPRAZOLE 40 MG TAB PO SCH (09:26)
[2019-12-04] MEDS: ALBUTEROL SULF 2.5 MG/0.5ML(0.5%) NEB SOLN NEB SCH ×3 (11:02→23:54)
[2019-12-04] MEDS: IPRATROPIUM BROM 0.5 MG/2.5ML INH SOL NEB SCH ×3 (11:02→23:54)
[2019-12-04 13:00] VITALS: BP 119/73
[2019-12-04 17:00] VITALS: BP 120/80
[2019-12-04] MEDS ORDERED: MORPHINE SULF INJ 2 MG/ML SYRINGE 1ML IV PRN (18:45)
[2019-12-04 22:00] VITALS: BP_SYST 133; BP_SYST 135; BP_DIAS 73
--- NOTE | 2019-12-05 00:08 | NUR ---
Respiratory note: PT COMPLAINING ABOUT SEVERE THROAT PAIN. NO STRIDOR HEARD. WILL NOTIFY STEPHIE PETERSEN OF PTS COMPLAINTS.
--- NOTE | 2019-12-05 03:16 | NUR ---
Closing Note Care endorsed to STEPHIE Galicia. Pérez
--- NOTE | 2019-12-05 03:25 | NUR ---
ASSUMED CARE ASSUMED CARE OF PATIENT. PATIENT ASLEEP, EVEN UNLABORED RESPIRATIONS. WILL CONTINUE TO MONITOR
[2019-12-05] MEDS: PREGABALIN 25 MG CAP PO SCH ×3 (04:38→21:57)
[2019-12-05] MEDS: CARISOPRODOL 350 MG TAB PO SCH ×3 (04:38→21:57)
--- NOTE | 2019-12-05 04:55 | NUR ---
Respiratory note: PAGED TO BEDSIDE FOR NORAH NOGUEIRA. UPON ARRIVAL PT DEMANDING COFFEE FOR HIS SORE THROAT NOT BREATHING TREATMENT.
[2019-12-05 05:42] VITALS: BP 140/84
[2019-12-05] MEDS: ALBUTEROL SULF 2.5 MG/0.5ML(0.5%) NEB SOLN NEB SCH ×3 (06:25→19:10)
[2019-12-05] MEDS: IPRATROPIUM BROM 0.5 MG/2.5ML INH SOL NEB SCH ×3 (06:25→19:10)
--- NOTE | 2019-12-05 07:28 | NUR ---
Opening Shift Note Assumed care of patient after report, awake and alert, oriented x4. No S/S of distress/SOB or pain at this time. Patient sitting up in bed with only one rail up, and wants it that way. Instructed on POC and to call for assistance PRN. Bed is locked in lowest position with side rails up x1 per patients request. Patient instructed on safety risk. Will continue to monitor for changes Q1hr and PRN.
[2019-12-05 08:00] VITALS: BP 136/74
[2019-12-05] MEDS: ENOXAPARIN SOD 40 MG/0.4 ML SYRINGE SC SCH (08:51)
[2019-12-05] MEDS: POTASSIUM CHL 20 Meq TABLET PO SCH (08:52)
[2019-12-05 09:00] VITALS: BP 136/74
[2019-12-05] MEDS: PANTOPRAZOLE 40 MG TAB PO SCH (09:00)
[2019-12-05] MEDS: FUROSEMIDE 20 MG TAB PO SCH (09:00)
[2019-12-05] MEDS: DOXYCYCLINE 100 MG TAB/CAP PO SCH (09:00)
[2019-12-05] MEDS ORDERED: AZITHROMYCIN 500MG/ 250ML 250 ML IV ONE (09:45)
--- NOTE | 2019-12-05 09:47 | NUR ---
DR DESIR AT BEDSIDE, DISCUSSED PLAN OF CARE WITH PATIENT. NEW ORDER: SOLUMEDROL 60MG IV ONCE NOW AND Q8HRS PAIN MANAGEMENT CONSULT WITH DR. Anne Marie HOLLAND
[2019-12-05] MEDS ORDERED: methylPREDNISolone SOD SUCC 125 MG/2 ML VL IV ONE (10:00)
[2019-12-05 13:00] VITALS: BP 152/89
[2019-12-05] MEDS: HYDROcodone-ACET 5/325MG TAB PO PRN ×2 (13:18→18:58)
[2019-12-05 17:00] VITALS: BP 107/59
[2019-12-05] MEDS ORDERED: FUROSEMIDE 40 MG/4 ML VIAL IV SCH (18:00)
[2019-12-05] MEDS: methylPREDNISolone SOD SUCC 125 MG/2 ML VL IV SCH ×2 (18:48→21:57)
[2019-12-05 22:51] VITALS: BP 129/88
[2019-12-06] MEDS: IPRATROPIUM BROM 0.5 MG/2.5ML INH SOL NEB SCH ×3 (00:47→12:22)
[2019-12-06] MEDS: ALBUTEROL SULF 2.5 MG/0.5ML(0.5%) NEB SOLN NEB SCH ×3 (00:47→12:22)
[2019-12-06 06:49] LABS: Basophils # (auto) 0 10 ^3/uL (0-0.2); Basophils % (auto) 0.1 % (0.0-2.0); Eosinophils # (auto) 0 10 ^3/uL (0-0.8); Hematocrit 46.2 % (41.0-53.0); Hemoglobin 15.2 g/dL (13.5-17.5); Lymphocytes # (auto) 0.5 10 ^3/uL (0.4-5.4); Lymphocytes % (auto) 4.3 % (10.0-50.0); Mean Corpuscular Hemoglobin 29.4 pg (28.0-32.0); Mean Corpuscular Volume 89.1 fL (80.0-100.0); Monocytes # (auto) 0.1 10 ^3/uL (0-1.3); Monocytes % (auto) 1.2 % (0.0-12.0); Neutrophils # (auto) 10.6 10 ^3/uL (1.6-8.6); Neutrophils % (auto) 94.4 % (37.0-80.0); Platelet Count (auto) 180 10^3/uL (140-450); Red Blood Cells 5.18 10^6/uL (4.5-5.90); Red Cell Distribution Width 17.9 % (11.8-14.3); White Blood Cell 11.2 10^3/uL (4.4-10.8)
[2019-12-06 06:51] LABS: Albumin 3.2 g/dL (3.4-5.0); Calcium 8.5 mg/dL (8.5-10.1); Potassium 4.3 mmol/L (3.5-5.1)
[2019-12-06 06:54] LABS: BUN/Creatinine Ratio 20.7; Bilirubin, Total 0.3 mg/dL (0.2-1.0); Total Protein 6.6 g/dL (6.4-8.2)
--- NOTE | 2019-12-06 07:25 | NUR ---
Received patient awake, alert and oriented x4, receiving breathing treatment. No pain, SOB or s/s of distress noted. Bed in low and locked position, encouraged to call for assistance prn. Will reassess and continue to monitor q1hr and prn.
[2019-12-06 08:00] VITALS: BP 120/76
[2019-12-06 09:00] VITALS: BP 120/76
[2019-12-06] MEDS: POTASSIUM CHL 20 Meq TABLET PO SCH (09:18)
[2019-12-06] MEDS: PANTOPRAZOLE 40 MG TAB PO SCH (09:18)
[2019-12-06] MEDS: ENOXAPARIN SOD 40 MG/0.4 ML SYRINGE SC SCH (09:18)
[2019-12-06] MEDS ORDERED: AZITHROMYCIN 500MG/ 250ML 250 ML IV SCH (10:00)
--- NOTE | 2019-12-06 11:26 | NUR ---
PATIENT IS REQUESTING PAIN MED FOR 8/10 BACK PAIN. WILL MEDICATE PER eMAR.
[2019-12-06] MEDS: HYDROcodone-ACET 5/325MG TAB PO PRN (11:28)
[2019-12-06 13:00] VITALS: BP 129/74
[2019-12-06] MEDS: methylPREDNISolone SOD SUCC 125 MG/2 ML VL IV SCH (14:00)
[2019-12-06] MEDS: CARISOPRODOL 350 MG TAB PO SCH (14:15)
[2019-12-06] MEDS: PREGABALIN 25 MG CAP PO SCH (14:15)
[2019-12-06 14:47] VITALS: BP 107/59
--- NOTE | 2019-12-06 15:18 | NUR ---
DR HOLLAND AT BEDSIDE, DISCUSSED PLAN OF CARE WITH PATIENT.
--- NOTE | 2019-12-06 16:20 | NUR ---
PATIENT DISCHARGED HOME AT THIS TIME PER MD'S ORDER. VERBALIZED UNDERSTANDING OF DISCHARGE INSTRUCTIONS. AMBULATORY, ALERT AND ORIENTED AT THIS TIME. DR. VACA GAVE NEW PRESCRIPTIONS ON DISCHARGE. NORCO 10/325MG P.O. EVERY 6HR PRN #120 LYRICA 50MG P.O. TID #90 SOMA 350MG P.O. TID #90
== END 2019-12-06 16:20 | disposition home or self-care (01) | DRG 189 ==
LOC: EDBD 20:25 → ER 20:25 → TELE 20:26 → TELE-WESTW 12-03 17:44
PROVIDERS: ADMIT Hospitalist; ATTEND Internal Medicine
DX: J96.01 Acute respiratory failure with hypoxia (principal); I50.23 Acute on chronic systolic (congestive) heart failure; J44.1 Chronic obstructive pulmonary disease with (acute) exacerbation; I11.0 Hypertensive heart disease with heart failure; E11.9 Type 2 diabetes mellitus without complications; E66.9 Obesity, unspecified; Z88.5 Allergy status to narcotic agent; Z88.8 Allergy status to other drugs, medicaments and biological substances; E78.5 Hyperlipidemia, unspecified; G89.4 Chronic pain syndrome; I25.10 Atherosclerotic heart disease of native coronary artery without angina pectoris; Z80.9 Family history of malignant neoplasm, unspecified; Z82.49 Family history of ischemic heart disease and other diseases of the circulatory system; Z83.3 Family history of diabetes mellitus; Z86.73 Personal history of transient ischemic attack (TIA), and cerebral infarction without residual deficits; Z87.891 Personal history of nicotine dependence; Z68.33 Body mass index [BMI] 33.0-33.9, adult
CPT/HCPCS: 36415; 36600; 71045; 80053; 81001; 82728; 82805; 83036; 83605; 83615; 83735; 83880; 84443; 84484; 85025; 85379; 86141; 86710; 87040; 87081; 93005; 94640; 94644; 99291; G0378; J0696; J1885

== ENCOUNTER 2019-12-22 09:17 | Emergency (ER) | payer MEDICARE, OTHER ==
[~2019-12-22] VITALS: Ht 165.1 cm; Wt 90.7 kg
[2019-12-22] MEDS ORDERED: cefTRIAXone 1GM/50ML D5W 50 ML IV ONE (09:45)
[2019-12-22] MEDS ORDERED: IPRATROPIUM BROM 0.5 MG/2.5ML INH SOL NEB ONE (09:45)
[2019-12-22] MEDS ORDERED: methylPREDNISolone SOD SUCC 125 MG/2 ML VL IV ONE (09:45)
[2019-12-22] MEDS ORDERED: ALBUTEROL SULF 2.5 MG/0.5ML(0.5%) NEB SOLN NEB ONE (09:45)
[2019-12-22 09:58] LABS: Basophils # (auto) 0.1 10 ^3/uL (0-0.2); Basophils % (auto) 0.5 % (0.0-2.0); Eosinophils # (auto) 0.2 10 ^3/uL (0-0.8); Eosinophils % (auto) 1.4 % (0.0-7.0); Hematocrit 47.8 % (41.0-53.0); Hemoglobin 15.9 g/dL (13.5-17.5); Lymphocytes # (auto) 1.4 10 ^3/uL (0.4-5.4); Lymphocytes % (auto) 12.5 % (10.0-50.0); Mean Corpuscular Hemoglobin 29.8 pg (28.0-32.0); Mean Corpuscular Hgb Conc. 33.2 g/dL (32.0-36.0); Mean Corpuscular Volume 89.7 fL (80.0-100.0); Monocytes % (auto) 9.2 % (0.0-12.0); Neutrophils # (auto) 8.7 10 ^3/uL (1.6-8.6); Neutrophils % (auto) 76.4 % (37.0-80.0); Nucleated Red Blood Cells % 0.1 %; Platelet Count (auto) 193 10^3/uL (140-450); Red Blood Cells 5.32 10^6/uL (4.5-5.90); Red Cell Distribution Width 18.8 % (11.8-14.3); White Blood Cell 11.4 10^3/uL (4.4-10.8)
[2019-12-22 10:15] LABS: Albumin 3.4 g/dL (3.4-5.0); Anion Gap 5 (5-15); Blood Urea Nitrogen 10 mg/dL (7-18); Calcium 8.2 mg/dL (8.5-10.1); Carbon Dioxide 31 mmol/L (21-32); Chloride 102 mmol/L (98-107); Glucose 97 mg/dL (74-106); Sodium 138 mmol/L (136-145)
[2019-12-22 10:19] LABS: INR 1.1 (0.9-1.15); Partial Thromboplastin Time 27.3 sec (23.0-31.2)
[2019-12-22 10:20] LABS: Alanine Aminotransferase 49 U/L (16-61); Alkaline Phosphatase 74 U/L (45-117); Aspartate Aminotransferase 35 U/L (15-37); BUN/Creatinine Ratio 11.5; Bilirubin, Total 0.8 mg/dL (0.2-1.0); GFR African American 114 mL/min; GFR Non-African American 95 mL/min; Total Protein 6.8 g/dL (6.4-8.2)
[2019-12-22 10:30] LABS: Potassium 2.8 mmol/L (3.5-5.1)
[2019-12-22] MEDS: POTASSIUM CHL 20MEQ/100ML 100 ML IV SCH ×2 (10:45→13:15)
[2019-12-22] MEDS ORDERED: KETOROLAC TROMETH 30 MG/ML 1ML VIAL IV ONE (12:00)
[2019-12-22 12:46] VITALS: BP 122/78
== END 2019-12-22 13:40 | disposition home or self-care (01) ==
LOC: ER 09:17
DX: M54.2 Cervicalgia (principal); J44.1 Chronic obstructive pulmonary disease with (acute) exacerbation; E87.6 Hypokalemia; Z88.6 Allergy status to analgesic agent
CPT/HCPCS: 36415; 70450; 71045; 72125; 80053; 83880; 84484; 85025; 85610; 85730; 93005; 94640; 96365; 96375; 99285; J0696; J1885; J2930; J3480; J7644

== ENCOUNTER 2019-12-30 01:10 | Emergency (ER) | payer MEDICARE, OTHER ==
[~2019-12-30] VITALS: Ht 162.6 cm; Wt 90.7 kg
[2019-12-30 01:53] VITALS: BP 99/68
[2019-12-30 02:32] LABS: Basophils # (auto) 0.1 10 ^3/uL (0-0.2); Basophils % (auto) 1.1 % (0.0-2.0); Eosinophils # (auto) 0.2 10 ^3/uL (0-0.8); Eosinophils % (auto) 1.7 % (0.0-7.0); Hematocrit 50.4 % (41.0-53.0); Hemoglobin 16.9 g/dL (13.5-17.5); Lymphocytes % (auto) 19.6 % (10.0-50.0); Mean Corpuscular Hemoglobin 29.8 pg (28.0-32.0); Mean Corpuscular Hgb Conc. 33.4 g/dL (32.0-36.0); Mean Corpuscular Volume 89.2 fL (80.0-100.0); Monocytes # (auto) 0.6 10 ^3/uL (0-1.3); Monocytes % (auto) 5.6 % (0.0-12.0); Neutrophils # (auto) 7.3 10 ^3/uL (1.6-8.6); Nucleated Red Blood Cells % 0.1 %; Platelet Count (auto) 200 10^3/uL (140-450); Red Blood Cells 5.66 10^6/uL (4.5-5.90); Red Cell Distribution Width 19.2 % (11.8-14.3); White Blood Cell 10.1 10^3/uL (4.4-10.8)
[2019-12-30 02:47] LABS: INR 1.03 (0.9-1.15); Partial Thromboplastin Time 24.2 sec (23.0-31.2)
[2019-12-30 02:58] LABS: Albumin 3.3 g/dL (3.4-5.0); Anion Gap 2 (5-15); Blood Urea Nitrogen 15 mg/dL (7-18); Calcium 8.2 mg/dL (8.5-10.1); Carbon Dioxide 37 mmol/L (21-32); Chloride 100 mmol/L (98-107); Glucose 109 mg/dL (74-106); Potassium 3.1 mmol/L (3.5-5.1); Sodium 139 mmol/L (136-145)
[2019-12-30 03:04] LABS: Alanine Aminotransferase 51 U/L (16-61); Alkaline Phosphatase 64 U/L (45-117); Aspartate Aminotransferase 31 U/L (15-37); BUN/Creatinine Ratio 17.4; Bilirubin, Total 0.4 mg/dL (0.2-1.0); GFR African American 116 mL/min; GFR Non-African American 96 mL/min; Total Protein 6.1 g/dL (6.4-8.2)
== END 2019-12-30 01:17 | disposition left against medical advice (07) ==
LOC: ER 01:11
DX: R06.02 Shortness of breath (principal); M79.662 Pain in left lower leg; M79.661 Pain in right lower leg; Z53.21 Procedure and treatment not carried out due to patient leaving prior to being seen by health care provider
CPT/HCPCS: 36415; 71045; 80053; 83880; 84484; 85025; 85610; 85730; 93005

== ENCOUNTER 2020-01-06 18:13 | Inpatient (IN) | payer MEDICARE, OTHER ==
[~2020-01-06] VITALS: Ht 165.1 cm; Wt 91.8 kg
[2020-01-06 20:10] LABS: Basophils # (auto) 0.1 10 ^3/uL (0-0.2); Eosinophils # (auto) 0.1 10 ^3/uL (0-0.8); Hemoglobin 17.3 g/dL (13.5-17.5); Lymphocytes # (auto) 1.5 10 ^3/uL (0.4-5.4); Monocytes # (auto) 0.9 10 ^3/uL (0-1.3); Monocytes % (auto) 7.7 % (0.0-12.0); Platelet Count (auto) 205 10^3/uL (140-450)
[2020-01-06 20:11] LABS: Basophils % (auto) 0.5 % (0.0-2.0); Eosinophils % (auto) 0.6 % (0.0-7.0); Hematocrit 52.8 % (41.0-53.0); Lymphocytes % (auto) 12.5 % (10.0-50.0); Mean Corpuscular Hemoglobin 29.1 pg (28.0-32.0); Mean Corpuscular Hgb Conc. 32.8 g/dL (32.0-36.0); Mean Corpuscular Volume 88.4 fL (80.0-100.0); Neutrophils # (auto) 9.5 10 ^3/uL (1.6-8.6); Neutrophils % (auto) 78.7 % (37.0-80.0); Red Blood Cells 5.96 10^6/uL (4.5-5.90); Red Cell Distribution Width 18.6 % (11.8-14.3); White Blood Cell 12.1 10^3/uL (4.4-10.8)
[2020-01-06 20:27] LABS: INR 1.17 (0.9-1.15); Partial Thromboplastin Time 27.2 sec (23.0-31.2)
[2020-01-06 20:33] LABS: Albumin 3.8 g/dL (3.4-5.0); Anion Gap 6 (5-15); Blood Urea Nitrogen 14 mg/dL (7-18); Calcium 8.3 mg/dL (8.5-10.1); Carbon Dioxide 35 mmol/L (21-32); Chloride 95 mmol/L (98-107); Glucose 94 mg/dL (74-106); Magnesium 2.3 mg/dL (1.6-2.6); Sodium 136 mmol/L (136-145)
[2020-01-06 20:39] LABS: Alanine Aminotransferase 41 U/L (16-61); Alkaline Phosphatase 78 U/L (45-117); Aspartate Aminotransferase 34 U/L (15-37); BUN/Creatinine Ratio 12.4; Bilirubin, Total 1.1 mg/dL (0.2-1.0); GFR African American 85 mL/min; GFR Non-African American 70 mL/min; Total Protein 7.1 g/dL (6.4-8.2)
[2020-01-06] MEDS ORDERED: POTASSIUM CHL 20 Meq TABLET PO ONE (22:15)
[2020-01-06] MEDS: POTASSIUM CHL 20MEQ/100ML 100 ML IV SCH (22:26)
[2020-01-06] MEDS ORDERED: levoFLOXacin 750MG 150 ML IV ONE (23:00)
[2020-01-07] MEDS: POTASSIUM CHL 20MEQ/100ML 100 ML IV SCH (02:05)
[2020-01-07] MEDS ORDERED: DOCUSATE SOD 100 MG CAP PO PRN (02:30)
[2020-01-07] MEDS ORDERED: ACETAMINOPHEN 325 MG TAB PO PRN (02:30)
[2020-01-07] MEDS ORDERED: ACETAMINOPHEN 500 MG TAB PO PRN (02:30)
[2020-01-07] MEDS ORDERED: ONDANSETRON HCL 4 MG/2 ML VIAL IV PRN (02:30)
[2020-01-07 03:35] VITALS: BP 122/88
[2020-01-07] MEDS ORDERED: ALBUTEROL SULF HFA 90MCG INH 200DOSE IN SCH (06:00)
--- NOTE | 2020-01-07 08:44 | NUR ---
Respiratory note: ASSESSED PT FOR PRN MED NEB AT THIS TIME, PT SLEEPING AT THIS TIME, NO RESP DISTRESS NOTED, NO TX INDICATED, PULSE OX 93% ON 3LNC, HR 86, RR 20
[2020-01-07] MEDS: FUROSEMIDE 40 MG/4 ML VIAL IV SCH (10:00)
[2020-01-07] MEDS: ZINC SULFATE 220mg CAP or TAB PO SCH (10:00)
[2020-01-07] MEDS: DexAMETHasone SOD PHOS 10MG/1ML VIAL INJ IV SCH (10:00)
[2020-01-07] MEDS ORDERED: ASCORBIC ACID 1,000 MG TAB PO SCH (10:00)
[2020-01-07] MEDS: ENOXAPARIN SOD 40 MG/0.4 ML SYRINGE SC SCH (10:00)
[2020-01-07] MEDS: cefTRIAXone 1GM/50ML D5W 50 ML IV SCH (10:00)
[2020-01-07] MEDS: DOXYCYCLINE 100 MG TAB/CAP PO SCH ×2 (10:00→21:32)
[2020-01-07 11:30] LABS: Urine Bacteria NONE SEEN /hpf (None Seen); Urine Blood Negative /uL (Negative); Urine Specific Gravity 1.007 (1.001-1.035); Urine WBC <1 /hpf (0 - 3)
[2020-01-07 17:12] VITALS: BP 99/62
--- NOTE | 2020-01-07 17:15 | NUR ---
Opening Shift Note Assumed care of patient, awake, alert and oriented X4. No S/S of distress/SOB or pain. O2 @ 4 LPM via nasal cannula with sats @ 96%. Tele# 56, sinus rhythm @ 89 bpm. IV to right wrist, 20 gauge, patent and saline locked. Bilateral lower extremity redness with +3 pitting edema to right lower extremity and +2 pitting edema to left lower extremity. Instructed on POC and to call for assist PRN, verbalized understanding. Bed locked, in lowest position, call light within reach, will continue to monitor for changes Q1hr and PRN.
[2020-01-07 17:29] VITALS: BP 99/62
[2020-01-07] MEDS: ALBUTEROL SULF 2.5 MG/0.5ML(0.5%) NEB SOLN NEB PRN (18:09)
[2020-01-07] MEDS: IPRATROPIUM BROM 0.5 MG/2.5ML INH SOL NEB PRN (18:10)
--- NOTE | 2020-01-07 18:57 | NUR ---
Care endorsed to STEPHIE Sandra, night nurse.
--- NOTE | 2020-01-07 19:45 | NUR ---
Opening Shift Note Assumed care of patient, awake and alert. No S/S of distress/SOB c/o cramping of his legs pain. Instructed on POC and to call for assist PRN, will continue to monitor for changes Q1hr and PRN.Medicated with Tylenol 1000mg.tab. as needed.
--- NOTE | 2020-01-07 20:57 | NUR ---
Doctor ordered Soma 350mg.p.o tab. every T.I.D. per telephone.
[2020-01-07] MEDS: CARISOPRODOL 350 MG TAB PO SCH (21:32)
[2020-01-07 21:56] VITALS: BP 112/63
[2020-01-08] MEDS: ALBUTEROL SULF 2.5 MG/0.5ML(0.5%) NEB SOLN NEB PRN ×2 (02:16→05:43)
[2020-01-08] MEDS: CARISOPRODOL 350 MG TAB PO SCH (05:31)
[2020-01-08 05:35] VITALS: BP 118/65
[2020-01-08] MEDS: IPRATROPIUM BROM 0.5 MG/2.5ML INH SOL NEB PRN (05:43)
[2020-01-08 05:52] LABS: Basophils # (auto) 0 10 ^3/uL (0-0.2); Basophils % (auto) 0.1 % (0.0-2.0); Eosinophils # (auto) 0 10 ^3/uL (0-0.8); Lymphocytes # (auto) 0.6 10 ^3/uL (0.4-5.4); Lymphocytes % (auto) 5.3 % (10.0-50.0); Mean Corpuscular Hemoglobin 28.8 pg (28.0-32.0); Mean Corpuscular Volume 90.1 fL (80.0-100.0); Monocytes # (auto) 0.6 10 ^3/uL (0-1.3); Monocytes % (auto) 5.2 % (0.0-12.0); Neutrophils # (auto) 10.2 10 ^3/uL (1.6-8.6); Neutrophils % (auto) 89.4 % (37.0-80.0); Nucleated Red Blood Cells % 0.1 %; Platelet Count (auto) 173 10^3/uL (140-450); Red Blood Cells 5.22 10^6/uL (4.5-5.90); Red Cell Distribution Width 18.6 % (11.8-14.3); White Blood Cell 11.4 10^3/uL (4.4-10.8)
[2020-01-08 06:19] LABS: Calcium 8.3 mg/dL (8.5-10.1); Potassium 3.6 mmol/L (3.5-5.1)
[2020-01-08 06:25] LABS: Albumin 3.2 g/dL (3.4-5.0); BUN/Creatinine Ratio 18.8; Bilirubin, Total 0.5 mg/dL (0.2-1.0); Total Protein 6.2 g/dL (6.4-8.2)
--- NOTE | 2020-01-08 06:54 | NUR ---
Patient wants to go down per wheel chair, advised not to due to he is using oxygen , non compliance, signed paper for AMA to wheel chair ride , told him that the doctor might come any time to see him.
--- NOTE | 2020-01-08 07:45 | NUR ---
Care report given to Kirk Myers, patient is resting and to follow-up to Thea regarding his bi-pap at night.
[2020-01-08 08:00] VITALS: BP 112/71
[2020-01-08 09:17] VITALS: BP 112/71
--- NOTE | 2020-01-08 09:40 | NUR ---
Dr. Lock at bedside.
[2020-01-08] MEDS: cefTRIAXone 1GM/50ML D5W 50 ML IV SCH (10:00)
[2020-01-08] MEDS ORDERED: FUROSEMIDE 40 MG/4 ML VIAL IV ONE (10:00)
[2020-01-08 10:25] VITALS: BP 112/71
[2020-01-08] MEDS: FUROSEMIDE 40 MG/4 ML VIAL IV SCH (11:05)
[2020-01-08] MEDS: ZINC SULFATE 220mg CAP or TAB PO SCH (11:06)
[2020-01-08] MEDS: DOXYCYCLINE 100 MG TAB/CAP PO SCH (11:06)
[2020-01-08] MEDS: ENOXAPARIN SOD 40 MG/0.4 ML SYRINGE SC SCH (11:07)
[2020-01-08] MEDS: DexAMETHasone SOD PHOS 10MG/1ML VIAL INJ IV SCH (11:07)
--- NOTE | 2020-01-08 13:43 | NUR ---
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 Home address provided. Sisi TILLMAN at [phone].
--- NOTE | 2020-01-08 14:07 | NUR ---
Discharge instructions given as ordered. Encourage to follow up with PMD as instructed. All questions and concerns addressed. Patient verbalized understanding. Medication reconciliation form completed and copy given to patient. IV removed with catheter intact, pressure dressing applied. Telemetry unit returned to ICU. Patient taken to [facility] taxi cab via wheelchair with all personal belongings, accompanied by staff .No distress noted at time of departure.
== END 2020-01-08 14:10 | disposition home or self-care (01) | DRG 291 ==
LOC: ER 18:13 → EDBD 18:13 → TELE 18:14 → TELE-WESTW 01-07 16:40
PROVIDERS: ADMIT Hospitalist; ATTEND Internal Medicine
DX: I11.0 Hypertensive heart disease with heart failure (principal); J96.21 Acute and chronic respiratory failure with hypoxia; J44.1 Chronic obstructive pulmonary disease with (acute) exacerbation; I50.23 Acute on chronic systolic (congestive) heart failure; Z86.73 Personal history of transient ischemic attack (TIA), and cerebral infarction without residual deficits; Z79.899 Other long term (current) drug therapy; Z79.51 Long term (current) use of inhaled steroids; I25.10 Atherosclerotic heart disease of native coronary artery without angina pectoris; E78.5 Hyperlipidemia, unspecified; E11.40 Type 2 diabetes mellitus with diabetic neuropathy, unspecified; I25.2 Old myocardial infarction; Z87.891 Personal history of nicotine dependence; F31.9 Bipolar disorder, unspecified; Z80.9 Family history of malignant neoplasm, unspecified; Z82.49 Family history of ischemic heart disease and other diseases of the circulatory system; Z83.3 Family history of diabetes mellitus; Z20.828 Contact with and (suspected) exposure to other viral communicable diseases
CPT/HCPCS: 36415; 71045; 71046; 80053; 81001; 82728; 83735; 83880; 84484; 85025; 85379; 85610; 85730; 86141; 87426; 93005; 94640; G0378; J0696; J1100; J1956; J3480

== ENCOUNTER 2020-01-27 02:26 | Emergency (ER) | payer MEDICARE, OTHER ==
[~2020-01-27] VITALS: Ht 165.1 cm; Wt 90.7 kg
[2020-01-27 03:16] LABS: Basophils # (auto) 0.1 10 ^3/uL (0-0.2); Basophils % (auto) 0.7 % (0.0-2.0); Eosinophils # (auto) 0.2 10 ^3/uL (0-0.8); Hematocrit 49.7 % (41.0-53.0); Hemoglobin 16.5 g/dL (13.5-17.5); Lymphocytes # (auto) 1.6 10 ^3/uL (0.4-5.4); Mean Corpuscular Hemoglobin 29.4 pg (28.0-32.0); Mean Corpuscular Hgb Conc. 33.2 g/dL (32.0-36.0); Mean Corpuscular Volume 88.8 fL (80.0-100.0); Monocytes # (auto) 0.7 10 ^3/uL (0-1.3); Neutrophils # (auto) 6.2 10 ^3/uL (1.6-8.6); Neutrophils % (auto) 71.3 % (37.0-80.0); Nucleated Red Blood Cells % 0.2 %; Platelet Count (auto) 190 10^3/uL (140-450); Red Cell Distribution Width 18.1 % (11.8-14.3); White Blood Cell 8.6 10^3/uL (4.4-10.8)
[2020-01-27 03:31] LABS: INR 1.08 (0.9-1.15); Partial Thromboplastin Time 27.9 sec (23.0-31.2)
[2020-01-27 03:33] LABS: Albumin 3.5 g/dL (3.4-5.0); Anion Gap 4 (5-15); Blood Urea Nitrogen 7 mg/dL (7-18); Carbon Dioxide 31 mmol/L (21-32); Chloride 103 mmol/L (98-107); Glucose 119 mg/dL (74-106); Magnesium 2.1 mg/dL (1.6-2.6); Sodium 138 mmol/L (136-145)
[2020-01-27 03:39] LABS: Alanine Aminotransferase 28 U/L (16-61); Alkaline Phosphatase 83 U/L (45-117); Aspartate Aminotransferase 22 U/L (15-37); BUN/Creatinine Ratio 9.5; Bilirubin, Total 0.6 mg/dL (0.2-1.0); GFR African American 138 mL/min; GFR Non-African American 114 mL/min; Total Protein 6.4 g/dL (6.4-8.2)
[2020-01-27 04:10] LABS: Potassium 2.9 mmol/L (3.5-5.1)
[2020-01-27] MEDS ORDERED: POTASSIUM CHL 20MEQ/100ML 100 ML IV ONE (04:30)
[2020-01-27] MEDS ORDERED: POTASSIUM EFFERVESENT TAB 25 MEQ PO ONE ×2 (04:30→07:45)
[2020-01-27 05:32] LABS: Urine Bacteria NONE SEEN /hpf (None Seen); Urine Blood Negative /uL (Negative); Urine Specific Gravity 1.011 (1.001-1.035); Urine WBC 1 /hpf (0 - 3)
[2020-01-27] MEDS ORDERED: IOHEXOL 350 MG/ML 100ML IJ ONE (06:07)
[2020-01-27 07:35] VITALS: BP 119/92
== END 2020-01-27 07:52 | disposition left against medical advice (07) ==
LOC: ER 02:27
DX: J44.1 Chronic obstructive pulmonary disease with (acute) exacerbation (principal); R07.89 Other chest pain; I10 Essential (primary) hypertension; E87.6 Hypokalemia
CPT/HCPCS: 36415; 71045; 71275; 80053; 81001; 83735; 83880; 84484; 85025; 85379; 85610; 85730; 93005; 96365; 99285; J3480; J7030; Q9967

== ENCOUNTER 2020-02-17 14:29 | Emergency (ER) | payer MEDICARE, OTHER | END 2020-02-17 15:22 | disposition left against medical advice (07) | LOC: ER 14:29 | DX: R07.89 Other chest pain (principal); R06.02 Shortness of breath; Z53.21 Procedure and treatment not carried out due to patient leaving prior to being seen by health care provider ==

== ENCOUNTER 2020-03-01 06:17 | Inpatient (IN) | payer MEDICARE, OTHER ==
[~2020-03-01] VITALS: Ht 165.1 cm; Wt 94.8 kg
[2020-03-01] MEDS ORDERED: IPRATROPIUM BROM 0.5 MG/2.5ML INH SOL NEB ONE (07:00)
[2020-03-01] MEDS ORDERED: ALBUTEROL SULF 2.5 MG/0.5ML(0.5%) NEB SOLN NEB ONE (07:00)
[2020-03-01] MEDS ORDERED: methylPREDNISolone SOD SUCC 125 MG/2 ML VL IV ONE (07:30)
[2020-03-01 07:32] LABS: Basophils # (auto) 0.1 10 ^3/uL (0-0.2); Basophils % (auto) 0.6 % (0.0-2.0); Eosinophils # (auto) 0.1 10 ^3/uL (0-0.8); Eosinophils % (auto) 1.1 % (0.0-7.0); Hematocrit 50.5 % (41.0-53.0); Hemoglobin 16.9 g/dL (13.5-17.5); Lymphocytes # (auto) 1.9 10 ^3/uL (0.4-5.4); Lymphocytes % (auto) 18.3 % (10.0-50.0); Mean Corpuscular Hemoglobin 29.9 pg (28.0-32.0); Mean Corpuscular Hgb Conc. 33.4 g/dL (32.0-36.0); Mean Corpuscular Volume 89.5 fL (80.0-100.0); Monocytes # (auto) 0.6 10 ^3/uL (0-1.3); Monocytes % (auto) 6.1 % (0.0-12.0); Neutrophils # (auto) 7.6 10 ^3/uL (1.6-8.6); Neutrophils % (auto) 73.9 % (37.0-80.0); Nucleated Red Blood Cells % 0.1 %; Platelet Count (auto) 183 10^3/uL (140-450); Red Blood Cells 5.65 10^6/uL (4.5-5.90); Red Cell Distribution Width 18.9 % (11.8-14.3); White Blood Cell 10.3 10^3/uL (4.4-10.8)
[2020-03-01 07:47] LABS: INR 1.08 (0.9-1.15); Partial Thromboplastin Time 27.1 sec (23.0-31.2)
[2020-03-01 07:59] LABS: Albumin 3.8 g/dL (3.4-5.0); Anion Gap 3 (5-15); Blood Urea Nitrogen 10 mg/dL (7-18); Calcium 8.3 mg/dL (8.5-10.1); Carbon Dioxide 31 mmol/L (21-32); Chloride 105 mmol/L (98-107); Glucose 80 mg/dL (74-106); Potassium 4.3 mmol/L (3.5-5.1); Sodium 139 mmol/L (136-145)
[2020-03-01] MEDS ORDERED: LABETALOL HCL 5 MG/ML 4ML SYRINGE IV ONE (08:00)
[2020-03-01 08:05] LABS: Alanine Aminotransferase 27 U/L (16-61); Alkaline Phosphatase 81 U/L (45-117); Aspartate Aminotransferase 21 U/L (15-37); BUN/Creatinine Ratio 13.9; Bilirubin, Total 0.4 mg/dL (0.2-1.0); GFR African American 142 mL/min; GFR Non-African American 118 mL/min; Total Protein 6.8 g/dL (6.4-8.2)
[2020-03-01] MEDS ORDERED: NITROGLYCERIN 0.4 MG SL TAB SL PRN (09:15)
[2020-03-01] MEDS ORDERED: ONDANSETRON HCL 4 MG/2 ML VIAL IV PRN (09:15)
[2020-03-01] MEDS ORDERED: FUROSEMIDE 40 MG/4 ML VIAL IV SCH (10:00)
[2020-03-01] MEDS: FUROSEMIDE 40 MG/4 ML VIAL IV SCH ×3 (10:11→19:04)
[2020-03-01] MEDS: levoFLOXacin 500MG 100 ML IV SCH (10:11)
[2020-03-01] MEDS: POTASSIUM CHL 20 Meq TABLET PO SCH (10:16)
[2020-03-01 10:40] VITALS: BP 138/99
[2020-03-01] MEDS: ALBUTEROL SULF 2.5 MG/0.5ML(0.5%) NEB SOLN NEB PRN ×2 (10:40→18:33)
[2020-03-01] MEDS: IPRATROPIUM BROM 0.5 MG/2.5ML INH SOL NEB PRN ×2 (10:40→18:33)
[2020-03-01] MEDS ORDERED: POTA8TAB2 PO (12:02)
[2020-03-01] MEDS ORDERED: PREG50CA PO (12:02)
[2020-03-01] MEDS ORDERED: IPRA0.00 IN (12:02)
[2020-03-01] MEDS ORDERED: CYAN100T7 PO (12:07)
[2020-03-01] MEDS ORDERED: CHOL20007 PO (12:07)
[2020-03-01] MEDS ORDERED: CALC-386 PO (12:07)
[2020-03-01] MEDS ORDERED: TEST200I32 IJ (12:07)
[2020-03-01] MEDS ORDERED: DIP005TP EX (12:07)
[2020-03-01] MEDS ORDERED: BUDE1AER4 IN (12:07)
[2020-03-01] MEDS ORDERED: ALBUAER3 IN (12:08)
[2020-03-01 12:16] LABS: CRP High Sensitivity 0.25 mg/dL (< 0.3)
[2020-03-01] MEDS: HYDROmorphone HCL 2 MG/ML VL IV PRN (12:24)
--- NOTE | 2020-03-01 14:15 | NUR ---
Telemetry admit from ER DONNELL MARCOS admitted to Telemetry unit after SBAR received. Patient oriented to Rochelle Molina RN primary RN, unit, room, bed, and unit policies regarding patient care and visiting hours. Patient now on continuous telemetry monitoring, tele box #28 and telemetry reading on arrival to unit is sinus tachycardia 101 bpm. Patient placed on bedside oxygen a 4L via nasal cannula, weighed by bedscale and encouraged to call if they need something. All questions and concerns addressed, patient verbalized understanding. Patient is alert and oriented. SOB with exertion. Auscultated lung sounds and heard inspiratory and expiratory wheezing at bilateral upper and lower lung lobes (ant/post). Patient reports feeling SOB X1 week. O2 saturations on 4L nasal cannula 92%. Patient is resting comfortably at this time. No reports of pain at this time. Bed is low, locked with 2x side rails up. Call light is within reach. Discussed POC with patient. Will continue to monitor Q1hr and PRN.
[2020-03-01] MEDS ORDERED: hydrALAZINE HCL 20 MG/ML VL IV PRN (14:30)
[2020-03-01] MEDS ORDERED: LISINOPRIL 20 MG TAB PO ONE (14:30)
[2020-03-01] MEDS ORDERED: METOPROLOL TARTRATE 25 MG TAB PO ONE (14:30)
[2020-03-01 14:51] VITALS: BP 154/93
[2020-03-01] MEDS: HYDROcodone-ACET 10/325MG TAB PO PRN ×2 (15:35→22:16)
--- NOTE | 2020-03-01 16:56 | NUR ---
Cardio Discussed POC with Dr. Toribio. Received new orders for CMP. Orders read back to verify.
[2020-03-01 17:11] VITALS: BP 147/70
--- NOTE | 2020-03-01 18:25 | NUR ---
RT NOTE PT WAS SEEN BY RT FOR HHN TX. PT TOLERATES WELL VIA MASK. NO ADVERSE REACTION NOTED. CONT ORDERED Addendum: 03/01/20 at 2312 by Sadie Pinzon RT Amended: Links added.
--- NOTE | 2020-03-01 19:07 | NUR ---
Refusing Lasix Patient refusing scheduled Lasix that was due at 1800. Patient states that his hands will cramp too much and he wants something for the cramping before he accepts Lasix. Attempted to educate patient on need for Lasix; continues to refuse. K levels WNL. Will relay to oncoming nurse.
--- NOTE | 2020-03-01 19:30 | NUR ---
Opening Note Assumed care of patient, awake and alert. No S/S of distress/SOB or pain. Instructed on POC and to call for assist PRN, will continue to monitor for changes. Patient sitting up on the side of the bed.
[2020-03-01 19:47] LABS: Albumin 3.8 g/dL (3.4-5.0); Calcium 8.7 mg/dL (8.5-10.1); Potassium 5.1 mmol/L (3.5-5.1)
[2020-03-01 19:50] LABS: BUN/Creatinine Ratio 16.1; Bilirubin, Total 0.5 mg/dL (0.2-1.0)
[2020-03-01 22:00] VITALS: BP 128/76
[2020-03-01] MEDS: SYMBICORT IN SCH (22:00)
[2020-03-01] MEDS: METOPROLOL TARTRATE 25 MG TAB PO SCH (22:16)
--- NOTE | 2020-03-02 01:41 | NUR ---
RT NOTE PT WAS SEEN BY RT FOR PRN HHN TX. PT TOLERATES WELL VIA MASK. NO ADVERSE REACTION NOTED. PT REQUESTING A SODA OR SOMETHING ELSE TO DRINK, STEPHIE CADENA NOTIFIED. CONT ORDERED Addendum: 03/02/20 at 0143 by Sadie Pinzon RT Amended: Links added.
[2020-03-02] MEDS: FUROSEMIDE 40 MG/4 ML VIAL IV SCH ×2 (05:16→17:33)
[2020-03-02 05:44] VITALS: BP 137/77
[2020-03-02 06:18] LABS: Potassium 4.7 mmol/L (3.5-5.1)
[2020-03-02 06:26] LABS: Albumin 3.7 g/dL (3.4-5.0); BUN/Creatinine Ratio 21.4; Bilirubin, Total 0.4 mg/dL (0.2-1.0); Calcium 9.2 mg/dL (8.5-10.1); Total Protein 6.7 g/dL (6.4-8.2)
--- NOTE | 2020-03-02 07:00 | NUR ---
OPENING NOTE PATIENT ALERT AND ORIENTED X4, PATIENT AMBULATORY, BUT EASILY EXERTED, HAS AUDIBLE WHEEZES, BREATH SOUNDS WITH WHEEZES AND DIMINISHED THROUGHOUT, SITTING AT SIDE OF BED, PATIENT STRENGTH EQUAL BILATERALLY TO UPPER AND LOWER EXTREMITIES, NEURO NORMAL, NO SLURRED SPEECH, NO ARM DRIFT, BUT SHAKY, WHICH PATIENT STATES IS NORMAL FOR HIM. PATIENT STATES THIS IS HIS BASELINE, HE STATES HE IS AN ACTIVE SMOKER BUT NOT SMOKING WHILE IN THE HOSPITAL. PATIENT STATES HE USES 02 AND BREATHING TREATMENTS AT HOME, AND HE WILL STILL BE SHORT OF BREATH. PATIENTS LEG HAVE +1 PITTING EDEMA, PATIENT STATES THIS HAPPENS TO HIM ALL THE TIME, HE ALWAYS HAS EDEMA, I INSTRUCTED PATIENT TO MAKE SURE HE DOESN'T DANGLE AT THE BEDSIDE ALL DAY AND TO ELEVATE HIS LEGS TO ALLOW FOR BETTER CIRCULATION, PATIENT STATES HE KNOWS HOW TO DO ALL THESE THINGS. PATIENT STATES HE'S WAITING OF HIMANSHU TO SEE HIM HERE.
[2020-03-02] MEDS: ALBUTEROL SULF 2.5 MG/0.5ML(0.5%) NEB SOLN NEB PRN ×3 (08:28→18:49)
[2020-03-02] MEDS: IPRATROPIUM BROM 0.5 MG/2.5ML INH SOL NEB PRN ×3 (08:28→18:49)
[2020-03-02 09:03] VITALS: BP 108/58
[2020-03-02] MEDS: METOPROLOL TARTRATE 25 MG TAB PO SCH ×2 (09:46→22:03)
[2020-03-02] MEDS: POTASSIUM CHL 20 Meq TABLET PO SCH (09:46)
[2020-03-02] MEDS: levoFLOXacin 500MG 100 ML IV SCH (09:46)
[2020-03-02] MEDS: SYMBICORT IN SCH ×2 (09:47→22:00)
[2020-03-02] MEDS: LISINOPRIL 20 MG TAB PO SCH (09:47)
--- NOTE | 2020-03-02 09:48 | NUR ---
patient notified to have family bring in symbicort
--- NOTE | 2020-03-02 10:45 | NUR ---
WOUND CARE NOTE: Wound care in to see patient per wound care request regarding "open scabs to lower extremity" that are noted present on admission. Bedside nurse took photograph of patient's L palomo wounds upon admission for reference. Patient is 64 years old male with admitting diagnosis of COPD, CHF Exacerbation. Patient is resting in bed in Rm. 219A. He's awake, alert and fully oriented. He's in no stated pain at this time. Patient is self turning and repositioning and his Gianfranco score is 17. Patient's BLE noted with edema and erythema. His Rt palomo has open partial thickness wound to proximal aspect of Rt palomo measuring 0.5x0.5cm and distal to it is scabbed wound. Minimal serous drainage noted, no odor noted. Patient's bilateral feel has dry skin with calloused Rt great toe. Cleansed patient's BLE with mild soap and water,patted dry, applied Hydraguard cream to dry BLE skin. Applied Thera honey gel to Rt palomo open wound, covered with absorbent pad and secured with stockinette. Patient's provided with wound care education, encourage to see trans router for hyperkeratotic foot/toes. Patient tolerated well and verbalized understanding. . RECOMMENDATION: Nursing to continue with BID cleaning and application of Hydraguard cream to dry BLE skin, Daily/PRN dressing change to Rt palomo wound per MD order, elevate edematous extremity on pillows, continue monitoring by wound care while patient is hospitalized. Addendum: 03/02/20 at 1506 by Sonali Rockwell RN Amended: Links added.
[2020-03-02 13:00] VITALS: BP 156/66
[2020-03-02] MEDS: HYDROcodone-ACET 10/325MG TAB PO PRN (13:25)
[2020-03-02 13:51] VITALS: BP 148/68
--- NOTE | 2020-03-02 14:30 | NUR ---
Patient states that PROJECT MANAGER ananda told patient yesterday that he would need to see Dr Russo to get soma, patient pending consult from nicola.
[2020-03-02 17:27] VITALS: BP 116/79
--- NOTE | 2020-03-02 18:05 | NUR ---
Patient stated that he is still shaky and although it's normal for him he said he wants to talk to the doctor about it. I told him that we are waiting for the LIFE SKILLS COORDINATOR to do rounds and for calvin to see patient, patient verbalized understanding of this . I checked patients hand plumber helper, strength in legs and all were equal and strong bilaterally, smile is equal, no arm drift.
[2020-03-02 22:00] VITALS: BP 127/72
[2020-03-02] MEDS: HYDROmorphone HCL 2 MG/ML VL IV PRN (22:03)
--- NOTE | 2020-03-03 01:39 | NUR ---
ROUNDS Patient reports SOB. Audible wheezes heard on expiration. Spo2 is 94% Patient is currently on 4L NC. Instructed patient to sit up on side of bed in orthopneic position. and RT paged for PRN breathing treatment.
[2020-03-03] MEDS: IPRATROPIUM BROM 0.5 MG/2.5ML INH SOL NEB PRN ×3 (01:45→21:01)
--- NOTE | 2020-03-03 01:45 | NUR ---
RT at bedside for PRN med-neb treatment.
[2020-03-03] MEDS: ALBUTEROL SULF 2.5 MG/0.5ML(0.5%) NEB SOLN NEB PRN ×3 (01:46→21:01)
--- NOTE | 2020-03-03 02:33 | NUR ---
ROUNDS Patient provided ice and a sandwich per request. Wheezing has subsided post Alex treatment. Patient states he is "feeling better".
[2020-03-03] MEDS: HYDROmorphone HCL 2 MG/ML VL IV PRN ×3 (04:30→20:46)
[2020-03-03 05:00] VITALS: BP 107/63
[2020-03-03] MEDS: FUROSEMIDE 40 MG/4 ML VIAL IV SCH (05:46)
[2020-03-03 05:52] LABS: Basophils # (auto) 0 10 ^3/uL (0-0.2); Basophils % (auto) 0.4 % (0.0-2.0); Eosinophils # (auto) 0 10 ^3/uL (0-0.8); Eosinophils % (auto) 0.2 % (0.0-7.0); Hematocrit 51.4 % (41.0-53.0); Hemoglobin 16.8 g/dL (13.5-17.5); Lymphocytes # (auto) 1.9 10 ^3/uL (0.4-5.4); Mean Corpuscular Hemoglobin 29.7 pg (28.0-32.0); Mean Corpuscular Hgb Conc. 32.7 g/dL (32.0-36.0); Mean Corpuscular Volume 90.8 fL (80.0-100.0); Monocytes % (auto) 8.4 % (0.0-12.0); Neutrophils # (auto) 9.1 10 ^3/uL (1.6-8.6); Platelet Count (auto) 206 10^3/uL (140-450); Red Blood Cells 5.66 10^6/uL (4.5-5.90); Red Cell Distribution Width 19.2 % (11.8-14.3); White Blood Cell 12.1 10^3/uL (4.4-10.8)
[2020-03-03 06:01] LABS: Albumin 3.4 g/dL (3.4-5.0); Calcium 8.7 mg/dL (8.5-10.1); Magnesium 2.7 mg/dL (1.6-2.6); Potassium 4.4 mmol/L (3.5-5.1)
[2020-03-03 06:05] LABS: BUN/Creatinine Ratio 22.5; Bilirubin, Total 0.3 mg/dL (0.2-1.0); Total Protein 6.2 g/dL (6.4-8.2)
--- NOTE | 2020-03-03 06:32 | NUR ---
Patient provided coffee per request. Patient also requesting wheelchair to go outside. Patient advised against leaving the unit due to muscle tremors and weakness. Informed that If he choses to leave the unit he will need to sign an AMA form. Patient verbalizes understanding. States, "I don't think I ready right now".
[2020-03-03] MEDS: HYDROcodone-ACET 10/325MG TAB PO PRN ×2 (08:46→15:24)
[2020-03-03] MEDS: CARISOPRODOL 350 MG TAB PO SCH ×2 (08:51→16:30)
[2020-03-03 09:00] VITALS: BP 106/52
--- NOTE | 2020-03-03 09:00 | NUR ---
Paged the HEALTH POLICY NURSE Chelle about patients medications hes asking for and shes going to be coming in soon, she also gave new orders for soma and lyrica. Patient doesn't want dressing changed, patient is worried about his shakiness and breathing, doesn't want me to mess with wounds.
[2020-03-03] MEDS ORDERED: ALPRAZolam 0.5 MG TAB PO PRN (09:30)
[2020-03-03] MEDS ORDERED: LORazepam 2MG/ML-1ML VIAL IV ONE (09:30)
[2020-03-03] MEDS: levoFLOXacin 500MG 100 ML IV SCH (09:34)
[2020-03-03] MEDS: POTASSIUM CHL 20 Meq TABLET PO SCH (09:36)
[2020-03-03] MEDS: PREGABALIN 25 MG CAP PO SCH (09:37)
[2020-03-03] MEDS: LISINOPRIL 20 MG TAB PO SCH (09:37)
[2020-03-03] MEDS: METOPROLOL TARTRATE 25 MG TAB PO SCH ×2 (09:37→20:45)
[2020-03-03] MEDS: SYMBICORT IN SCH ×2 (09:48→20:46)
[2020-03-03 13:00] VITALS: BP 106/59
[2020-03-03 17:00] VITALS: BP 116/57
--- NOTE | 2020-03-03 19:20 | NUR ---
Opening shift note Assumed care of patient from day shift RN. Patient sitting up on the side of the bed A&Ox4, patient respirations SOB without c/o distress at this time. Discussed POC with patient who verbalized understanding. Advised patient to call for assistance to the BSC. Bed in lowest locked position with 2 side rails up, call light within reach. Will continue to monitor Q1hr and PRN.
--- NOTE | 2020-03-03 20:58 | NUR ---
Patient requested breathing treatment Notified RT of SOB. Patient O2 sat. currently at 95%.
--- NOTE | 2020-03-03 21:01 | NUR ---
PAGED TO BEDSIDE. PT REQUESTING PRN TX.
[2020-03-03 22:00] VITALS: BP 113/58
[2020-03-04] MEDS: IPRATROPIUM BROM 0.5 MG/2.5ML INH SOL NEB PRN ×2 (01:23→18:46)
[2020-03-04] MEDS: ALBUTEROL SULF 2.5 MG/0.5ML(0.5%) NEB SOLN NEB PRN ×2 (01:23→18:46)
--- NOTE | 2020-03-04 01:24 | NUR ---
PAGED TO BEDSIDE PT REQUESTING PRN TX.
[2020-03-04] MEDS: CARISOPRODOL 350 MG TAB PO SCH ×3 (02:45→17:32)
[2020-03-04] MEDS: HYDROmorphone HCL 2 MG/ML VL IV PRN ×3 (05:11→17:31)
[2020-03-04 06:00] VITALS: BP 126/85
[2020-03-04 06:13] LABS: Basophils # (auto) 0.1 10 ^3/uL (0-0.2); Basophils % (auto) 0.9 % (0.0-2.0); Eosinophils # (auto) 0.1 10 ^3/uL (0-0.8); Eosinophils % (auto) 0.8 % (0.0-7.0); Hematocrit 52.4 % (41.0-53.0); Hemoglobin 17.4 g/dL (13.5-17.5); Lymphocytes # (auto) 1.9 10 ^3/uL (0.4-5.4); Lymphocytes % (auto) 17.9 % (10.0-50.0); Mean Corpuscular Hemoglobin 29.8 pg (28.0-32.0); Mean Corpuscular Hgb Conc. 33.2 g/dL (32.0-36.0); Mean Corpuscular Volume 89.8 fL (80.0-100.0); Monocytes # (auto) 0.9 10 ^3/uL (0-1.3); Monocytes % (auto) 8.2 % (0.0-12.0); Neutrophils # (auto) 7.6 10 ^3/uL (1.6-8.6); Neutrophils % (auto) 72.2 % (37.0-80.0); Nucleated Red Blood Cells % 0.1 %; Platelet Count (auto) 214 10^3/uL (140-450); Red Blood Cells 5.84 10^6/uL (4.5-5.90); Red Cell Distribution Width 18.7 % (11.8-14.3); White Blood Cell 10.5 10^3/uL (4.4-10.8)
[2020-03-04 06:32] LABS: Potassium 4.8 mmol/L (3.5-5.1)
[2020-03-04 06:53] LABS: Albumin 3.6 g/dL (3.4-5.0); BUN/Creatinine Ratio 22.2; Bilirubin, Total 0.4 mg/dL (0.2-1.0); Calcium 8.6 mg/dL (8.5-10.1); Magnesium 2.8 mg/dL (1.6-2.6); Total Protein 6.5 g/dL (6.4-8.2)
--- NOTE | 2020-03-04 07:32 | NUR ---
OPENING SHIFT NOTE ASSUMED CARE OF PATIENT FROM TOOL CHASER RN JOSE M. PATIENT IS AWAKE, ALERT, AND ORIENTED X4. PATIENT HAS NO S/S OF DISTRESS/SOB OR PAIN. INSTRUCTED PATIENT ON POC, PATIENT VERBALIZED UNDERSTANDING. BED IS IN LOWEST POSITION WITH SIDE RAILS RAISED X2, BED WHEELS LOCKED, AND CALL LIGHT IS WITHIN REACH. WILL CONTINUE TO MONITOR.
[2020-03-04 08:15] VITALS: BP 120/69
[2020-03-04] MEDS: HYDROcodone-ACET 10/325MG TAB PO PRN (08:19)
[2020-03-04 09:06] VITALS: BP 120/69
[2020-03-04] MEDS: PREGABALIN 25 MG CAP PO SCH (09:18)
[2020-03-04] MEDS: POTASSIUM CHL 20 Meq TABLET PO SCH (09:18)
[2020-03-04] MEDS: SYMBICORT IN SCH (09:19)
[2020-03-04] MEDS: METOPROLOL TARTRATE 25 MG TAB PO SCH (09:19)
[2020-03-04] MEDS: levoFLOXacin 500MG 100 ML IV SCH (09:19)
[2020-03-04] MEDS: LISINOPRIL 20 MG TAB PO SCH (09:20)
[2020-03-04] MEDS ORDERED: FUROSEMIDE 40 MG/4 ML VIAL IV SCH (10:00)
--- NOTE | 2020-03-04 11:03 | NUR ---
Nutrition Assessment Notes Please refer to link for full assessment notes. Est Energy needs: 3390-2743 kcals (17-20 kcal/kgBW) Est Protein needs: 93-124 gms/day (1.5-2.0 gm/kgIBW of 61.8 kg) Will continue to monitor and reassess prn. Addendum: 03/04/20 at [address] Amended: Links added.
[2020-03-04 13:00] VITALS: BP 93/73
[2020-03-04 16:42] VITALS: BP 107/49
--- NOTE | 2020-03-04 17:00 | NUR ---
PATIENT IS HAVING ITCHINESS TO BILATERAL LOWER EXTREMITIES. PAGED SYNCHRONOUS MOTOR ASSEMBLER SP. AWAITING CALL BACK
--- NOTE | 2020-03-04 17:39 | NUR ---
RAKEL SNOWDEN ORDERED BENADRYL FOR ITCHINESS. WILL FOLLOW THROUGH WITH ORDERS.
[2020-03-04] MEDS ORDERED: diphenhdrAMINE HCL 50 MG/1 ML VL IV PRN (17:45)
--- NOTE | 2020-03-04 18:59 | NUR ---
CLOSING SHIFT NOTE ENDORSED CARE TO EXCAVATING MACHINE OPERATOR STEPHIE SALGUERO. PATIENT HAS NO S/S OF DISTRESS/SOB OR PAIN AT THIS TIME.
--- NOTE | 2020-03-04 19:30 | NUR ---
Opening shift note Assumed care of patient from day shift RNWendy. Patient is A&Ox4 sitting up in bed. Respirations even and non-labored with no s/s of distress or c/o pain at this time. Discussed patients discharge and answered questions. Bed in lowest locked position with 2 side rails up, call light within reach. Will continue to monitor.
[2020-03-04 20:20] VITALS: BP 107/49
--- NOTE | 2020-03-04 21:27 | NUR ---
Patient discharged Discussed patient discharge, paperwork signed and answered questions. Removed telemetry box #28 and IV, catheter intact, applied pressure dressing. Patient tolerated well. Patient transported with belongings/oxygen by wheelchair to taxi parked outside and voucher signed by dump truck driver.
== END 2020-03-04 21:17 | disposition home or self-care (01) | DRG 291 ==
LOC: EDBD 06:17 → ER 06:17 → TELE 06:18 → TELE-CENTR 13:56
PROVIDERS: ADMIT Internal Medicine; ATTEND Internal Medicine
DX: I11.0 Hypertensive heart disease with heart failure (principal); J96.20 Acute and chronic respiratory failure, unspecified whether with hypoxia or hypercapnia; I16.1 Hypertensive emergency; J44.1 Chronic obstructive pulmonary disease with (acute) exacerbation; J44.0 Chronic obstructive pulmonary disease with (acute) lower respiratory infection; I50.43 Acute on chronic combined systolic (congestive) and diastolic (congestive) heart failure; E66.9 Obesity, unspecified; Z68.34 Body mass index [BMI] 34.0-34.9, adult; I25.10 Atherosclerotic heart disease of native coronary artery without angina pectoris; G20 Parkinson's disease; M79.7 Fibromyalgia; E11.40 Type 2 diabetes mellitus with diabetic neuropathy, unspecified; E78.5 Hyperlipidemia, unspecified; F17.210 Nicotine dependence, cigarettes, uncomplicated; F41.9 Anxiety disorder, unspecified; G89.4 Chronic pain syndrome; M19.90 Unspecified osteoarthritis, unspecified site; F32.9 Major depressive disorder, single episode, unspecified; I25.2 Old myocardial infarction; Z99.81 Dependence on supplemental oxygen; Z99.3 Dependence on wheelchair; Z79.51 Long term (current) use of inhaled steroids; Z79.899 Other long term (current) drug therapy; Z80.9 Family history of malignant neoplasm, unspecified; Z82.49 Family history of ischemic heart disease and other diseases of the circulatory system; Z83.3 Family history of diabetes mellitus; Z86.73 Personal history of transient ischemic attack (TIA), and cerebral infarction without residual deficits; Z87.442 Personal history of urinary calculi; Z88.5 Allergy status to narcotic agent; Z88.8 Allergy status to other drugs, medicaments and biological substances; J20.9 Acute bronchitis, unspecified
CPT/HCPCS: 36415; 71045; 80053; 82728; 83615; 83735; 83880; 84484; 85025; 85379; 85610; 85730; 86141; 93005; 93926; 94640; 96365; 96366; 96375; 99291; G0378; J1956; J2405

== ENCOUNTER 2020-03-05 20:45 | Inpatient (IN) | payer MEDICARE, OTHER ==
[~2020-03-05] VITALS: Ht 165.1 cm; Wt 90.8 kg
[~2020-03-05 20:45] MED LIST changes: +ALBUAER3 IN; +BUDE1AER4 IN; +CALC-386 PO; +CHOL20007 PO; +CYAN100T7 PO; +DIP005TP EX; -FLUT250M2 IN; +IPRA0.00 IN; -IPRAAER6 IN; -POTA-220 PO; +POTA8TAB2 PO; -PREG25CA PO; +PREG50CA PO; +TEST200I32 IJ
[2020-03-05] MEDS ORDERED: IPRATROPIUM BROM 0.5 MG/2.5ML INH SOL NEB ONE (21:30)
[2020-03-05] MEDS ORDERED: ALBUTEROL SULF 2.5 MG/0.5ML(0.5%) NEB SOLN NEB ONE (21:30)
[2020-03-05 21:31] LABS: Basophils # (auto) 0.1 10 ^3/uL (0-0.2); Basophils % (auto) 0.6 % (0.0-2.0); Eosinophils # (auto) 0.1 10 ^3/uL (0-0.8); Eosinophils % (auto) 0.6 % (0.0-7.0); Hematocrit 54.4 % (41.0-53.0); Hemoglobin 18.2 g/dL (13.5-17.5); Lymphocytes # (auto) 1.6 10 ^3/uL (0.4-5.4); Lymphocytes % (auto) 14.1 % (10.0-50.0); Mean Corpuscular Hemoglobin 29.6 pg (28.0-32.0); Mean Corpuscular Hgb Conc. 33.4 g/dL (32.0-36.0); Mean Corpuscular Volume 88.7 fL (80.0-100.0); Monocytes # (auto) 0.7 10 ^3/uL (0-1.3); Monocytes % (auto) 6.1 % (0.0-12.0); Neutrophils # (auto) 8.7 10 ^3/uL (1.6-8.6); Neutrophils % (auto) 78.6 % (37.0-80.0); Nucleated Red Blood Cells % 0.1 %; Platelet Count (auto) 205 10^3/uL (140-450); Red Blood Cells 6.13 10^6/uL (4.5-5.90); Red Cell Distribution Width 18.7 % (11.8-14.3)
[2020-03-05 21:45] LABS: Albumin 4.1 g/dL (3.4-5.0); Anion Gap 3 (5-15); Blood Urea Nitrogen 16 mg/dL (7-18); Calcium 8.6 mg/dL (8.5-10.1); Carbon Dioxide 33 mmol/L (21-32); Chloride 101 mmol/L (98-107); Glucose 100 mg/dL (74-106); Magnesium 2.5 mg/dL (1.6-2.6); Potassium 4.6 mmol/L (3.5-5.1); Sodium 137 mmol/L (136-145)
[2020-03-05 21:48] LABS: INR 1.09 (0.9-1.15); Partial Thromboplastin Time 27.5 sec (23.0-31.2)
[2020-03-05 21:51] LABS: Alanine Aminotransferase 31 U/L (16-61); Alkaline Phosphatase 74 U/L (45-117); Aspartate Aminotransferase 27 U/L (15-37); Bilirubin, Total 0.5 mg/dL (0.2-1.0); GFR African American 119 mL/min; GFR Non-African American 98 mL/min; Total Protein 7.1 g/dL (6.4-8.2)
[2020-03-05] MEDS ORDERED: FUROSEMIDE 20 MG/2 ML VIAL IV ONE (22:00)
[2020-03-06] MEDS ORDERED: HYDROmorphone HCL 2 MG/ML VL IV ONE (00:15)
[2020-03-06] MEDS ORDERED: diphenhdrAMINE HCL 50 MG/1 ML VL ONE (01:42)
[2020-03-06] MEDS ORDERED: diphenhdrAMINE HCL 50 MG/1 ML VL IV ONE (01:45)
[2020-03-06] MEDS ORDERED: NITROGLYCERIN 0.4 MG SL TAB SL PRN (03:00)
[2020-03-06 03:25] VITALS: BP 151/93
[2020-03-06] MEDS: methylPREDNISolone SOD SUCC 125 MG/2 ML VL IV SCH ×3 (06:00→21:50)
[2020-03-06] MEDS ORDERED: ONDANSETRON HCL 4 MG/2 ML VIAL IV PRN (06:00)
[2020-03-06] MEDS ORDERED: diphenhdrAMINE HCL 25 MG CAP PO SCH (06:00)
[2020-03-06] MEDS: ALBUTEROL SULF 2.5 MG/0.5ML(0.5%) NEB SOLN NEB PRN ×2 (06:06→17:21)
[2020-03-06] MEDS ORDERED: diphenhdrAMINE HCL 25 MG CAP PO PRN (08:30)
[2020-03-06] MEDS ORDERED: PRED2.5T4 PO (09:36)
[2020-03-06] MEDS: FUROSEMIDE 40 MG/4 ML VIAL IV SCH ×2 (10:20→21:50)
[2020-03-06] MEDS: HYDROmorphone HCL 2 MG/ML VL IV PRN ×2 (10:21→18:21)
[2020-03-06 13:00] VITALS: BP 116/68
[2020-03-06] MEDS: CARISOPRODOL 350 MG TAB PO PRN (15:28)
[2020-03-06 17:00] VITALS: BP 122/83
[2020-03-06] MEDS: ACETAMINOPHEN 325 MG TAB PO PRN (21:51)
[2020-03-06 22:00] VITALS: BP 123/78
[2020-03-07] MEDS: ALBUTEROL SULF 2.5 MG/0.5ML(0.5%) NEB SOLN NEB PRN ×4 (00:14→18:44)
[2020-03-07] MEDS: HYDROmorphone HCL 2 MG/ML VL IV PRN ×3 (03:12→21:31)
[2020-03-07 05:00] VITALS: BP 96/60
[2020-03-07] MEDS: methylPREDNISolone SOD SUCC 125 MG/2 ML VL IV SCH ×3 (06:54→22:06)
[2020-03-07 08:54] LABS: Hematocrit 52.9 % (41.0-53.0); Hemoglobin 17.5 g/dL (13.5-17.5); Mean Corpuscular Hemoglobin 29.6 pg (28.0-32.0); Mean Corpuscular Hgb Conc. 33.1 g/dL (32.0-36.0); Mean Corpuscular Volume 89.3 fL (80.0-100.0); Platelet Count (auto) 203 10^3/uL (140-450); Red Blood Cells 5.92 10^6/uL (4.5-5.90); Red Cell Distribution Width 18.8 % (11.8-14.3); White Blood Cell 16.1 10^3/uL (4.4-10.8)
[2020-03-07 08:58] LABS: Basophils % (manual) 0 (0.0-2.0); Blast Cells 0; Eosinophils % (manual) 0 (0-7); Metamyelocytes % 0; Myelocytes % 0; Promyelocytes % 0; Reactive Lymphocytes 0
[2020-03-07 09:10] VITALS: BP 114/79
[2020-03-07] MEDS ORDERED: guaiFENesin 200 MG/10 ML UD PO PRN (09:15)
[2020-03-07 09:18] LABS: BUN/Creatinine Ratio 19.8; Calcium 9.3 mg/dL (8.5-10.1); Potassium 4.4 mmol/L (3.5-5.1)
[2020-03-07] MEDS: AZITHROMYCIN 500MG/ 250ML 250 ML IV SCH (10:46)
[2020-03-07] MEDS: FUROSEMIDE 40 MG/4 ML VIAL IV SCH ×2 (10:46→22:00)
[2020-03-07] MEDS: ENOXAPARIN SOD 40 MG/0.4 ML SYRINGE SC SCH (10:46)
[2020-03-07 11:10] LABS: Band Neutrophils % (manual) 6; Lymphocytes % (manual) 4 (10.0-50.0); Monocytes % (manual) 2 (0-12)
[2020-03-07] MEDS: IPRATROPIUM BROM 0.5 MG/2.5ML INH SOL NEB PRN ×2 (11:50→18:45)
[2020-03-07 13:00] VITALS: BP 130/90
[2020-03-07 16:49] VITALS: BP 125/86
[2020-03-07] MEDS: ACETAMINOPHEN 325 MG TAB PO PRN (17:28)
[2020-03-07 20:00] VITALS: BP 102/78
[2020-03-07 22:00] VITALS: BP 102/78
[2020-03-07] MEDS: CARISOPRODOL 350 MG TAB PO PRN (22:06)
[2020-03-08] MEDS: HYDROmorphone HCL 2 MG/ML VL IV PRN ×2 (02:04→07:22)
[2020-03-08 05:00] VITALS: BP 121/89
[2020-03-08] MEDS: methylPREDNISolone SOD SUCC 125 MG/2 ML VL IV SCH (05:46)
[2020-03-08] MEDS: IPRATROPIUM BROM 0.5 MG/2.5ML INH SOL NEB PRN (05:54)
[2020-03-08] MEDS: ALBUTEROL SULF 2.5 MG/0.5ML(0.5%) NEB SOLN NEB PRN (05:54)
[2020-03-08 08:52] VITALS: BP 116/74
[2020-03-08 09:29] LABS: Basophils # (auto) 0 10 ^3/uL (0-0.2); Basophils % (auto) 0.2 % (0.0-2.0); Eosinophils # (auto) 0 10 ^3/uL (0-0.8); Hematocrit 52.3 % (41.0-53.0); Hemoglobin 16.9 g/dL (13.5-17.5); Lymphocytes # (auto) 0.6 10 ^3/uL (0.4-5.4); Lymphocytes % (auto) 3.5 % (10.0-50.0); Mean Corpuscular Hemoglobin 29.3 pg (28.0-32.0); Mean Corpuscular Hgb Conc. 32.4 g/dL (32.0-36.0); Mean Corpuscular Volume 90.4 fL (80.0-100.0); Monocytes # (auto) 0.4 10 ^3/uL (0-1.3); Monocytes % (auto) 2.3 % (0.0-12.0); Neutrophils # (auto) 17.3 10 ^3/uL (1.6-8.6); Platelet Count (auto) 186 10^3/uL (140-450); Red Blood Cells 5.79 10^6/uL (4.5-5.90); Red Cell Distribution Width 19.1 % (11.8-14.3); White Blood Cell 18.4 10^3/uL (4.4-10.8)
[2020-03-08 09:44] LABS: Magnesium 2.9 mg/dL (1.6-2.6); Potassium 4.3 mmol/L (3.5-5.1)
[2020-03-08] MEDS: FUROSEMIDE 40 MG/4 ML VIAL IV SCH (10:00)
[2020-03-08] MEDS: ENOXAPARIN SOD 40 MG/0.4 ML SYRINGE SC SCH (10:00)
[2020-03-08] MEDS: AZITHROMYCIN 500MG/ 250ML 250 ML IV SCH (10:00)
== END 2020-03-08 12:45 | disposition home or self-care (01) | DRG 193 ==
LOC: EDBD 20:45 → ER 21:01 → TELE 21:02 → TELE-WESTW 03-06 08:59
PROVIDERS: ADMIT Internal Medicine; ATTEND Internal Medicine
DX: J15.9 Unspecified bacterial pneumonia (principal); I50.33 Acute on chronic diastolic (congestive) heart failure; J44.1 Chronic obstructive pulmonary disease with (acute) exacerbation; J98.11 Atelectasis; I13.0 Hypertensive heart and chronic kidney disease with heart failure and stage 1 through stage 4 chronic kidney disease, or unspecified chronic kidney disease; J44.0 Chronic obstructive pulmonary disease with (acute) lower respiratory infection; F17.210 Nicotine dependence, cigarettes, uncomplicated; I25.10 Atherosclerotic heart disease of native coronary artery without angina pectoris; E11.40 Type 2 diabetes mellitus with diabetic neuropathy, unspecified; E78.5 Hyperlipidemia, unspecified; G20 Parkinson's disease; E11.22 Type 2 diabetes mellitus with diabetic chronic kidney disease; G89.4 Chronic pain syndrome; F41.9 Anxiety disorder, unspecified; E66.9 Obesity, unspecified; N18.9 Chronic kidney disease, unspecified; F32.9 Major depressive disorder, single episode, unspecified; Z79.51 Long term (current) use of inhaled steroids; I25.2 Old myocardial infarction; Z79.899 Other long term (current) drug therapy; Z80.9 Family history of malignant neoplasm, unspecified; Z82.49 Family history of ischemic heart disease and other diseases of the circulatory system; Z83.3 Family history of diabetes mellitus; Z86.73 Personal history of transient ischemic attack (TIA), and cerebral infarction without residual deficits; Z87.442 Personal history of urinary calculi; Z99.3 Dependence on wheelchair; Z71.6 Tobacco abuse counseling; Z99.81 Dependence on supplemental oxygen; Z88.5 Allergy status to narcotic agent; Z88.8 Allergy status to other drugs, medicaments and biological substances
CPT/HCPCS: 36415; 71045; 80048; 80053; 83735; 83880; 84484; 85007; 85025; 85027; 85610; 85730; 87070; 87081; 87205; 93005; 93970; 94640; 96374; 96375; G0378; J2405

== ENCOUNTER 2020-03-12 05:13 | Emergency (ER) | payer MEDICARE, OTHER ==
[~2020-03-12] VITALS: Ht 165.1 cm; Wt 95.3 kg
[~2020-03-12 05:13] MED LIST changes: +PRED2.5T4 PO
[2020-03-12 07:02] VITALS: BP 122/78
[2020-03-12] MEDS ORDERED: methylPREDNISolone SOD SUCC 125 MG/2 ML VL IV ONE (07:15)
[2020-03-12] MEDS ORDERED: ALBUTEROL SULF 2.5 MG/0.5ML(0.5%) NEB SOLN NEB ONE (08:15)
[2020-03-12] MEDS ORDERED: SODIUM CHLORIDE 0.9% 1,000 ML IV ONE (08:15)
[2020-03-12 08:26] LABS: Urine WBC None Seen /hpf (0 - 3)
[2020-03-12 08:35] LABS: Basophils # (auto) 0 10 ^3/uL (0-0.2); Eosinophils # (auto) 0.1 10 ^3/uL (0-0.8)
[2020-03-12 08:37] LABS: Urine Bacteria NONE SEEN /hpf (None Seen); Urine Blood Negative /uL (Negative); Urine Specific Gravity 1.014 (1.001-1.035)
[2020-03-12 08:38] LABS: Basophils % (auto) 0.2 % (0.0-2.0); Hematocrit 55.1 % (41.0-53.0); Lymphocytes # (auto) 2.1 10 ^3/uL (0.4-5.4); Lymphocytes % (auto) 17.2 % (10.0-50.0); Mean Corpuscular Hemoglobin 29.3 pg (28.0-32.0); Mean Corpuscular Hgb Conc. 32.6 g/dL (32.0-36.0); Mean Corpuscular Volume 89.9 fL (80.0-100.0); Monocytes # (auto) 0.7 10 ^3/uL (0-1.3); Monocytes % (auto) 5.3 % (0.0-12.0); Neutrophils # (auto) 9.5 10 ^3/uL (1.6-8.6); Neutrophils % (auto) 76.3 % (37.0-80.0); Nucleated Red Blood Cells % 0.1 %; Platelet Count (auto) 164 10^3/uL (140-450); Red Blood Cells 6.13 10^6/uL (4.5-5.90); Red Cell Distribution Width 19.2 % (11.8-14.3); White Blood Cell 12.5 10^3/uL (4.4-10.8)
[2020-03-12 08:45] LABS: Albumin 3.9 g/dL (3.4-5.0); Anion Gap 7 (5-15); Blood Urea Nitrogen 16 mg/dL (7-18); Calcium 8.4 mg/dL (8.5-10.1); Carbon Dioxide 30 mmol/L (21-32); Chloride 99 mmol/L (98-107); Glucose 122 mg/dL (74-106); Potassium 3.6 mmol/L (3.5-5.1); Sodium 136 mmol/L (136-145)
[2020-03-12 08:50] LABS: INR 1.15 (0.9-1.15); Partial Thromboplastin Time 27.7 sec (23.0-31.2)
[2020-03-12 08:51] LABS: Alanine Aminotransferase 49 U/L (16-61); Alkaline Phosphatase 64 U/L (45-117); Aspartate Aminotransferase 42 U/L (15-37); Bilirubin, Total 0.8 mg/dL (0.2-1.0); GFR African American 111 mL/min; GFR Non-African American 92 mL/min; Total Protein 6.7 g/dL (6.4-8.2)
[2020-03-12] MEDS ORDERED: IPRATROPIUM BROM 0.5 MG/2.5ML INH SOL NEB PRN (09:30)
[2020-03-12] MEDS ORDERED: TEMAZEPAM 15 MG CAP PO PRN (09:30)
[2020-03-12] MEDS ORDERED: guaiFENesin 200 MG/10 ML UD PO PRN (09:30)
[2020-03-12] MEDS ORDERED: ACETAMINOPHEN 325 MG TAB PO PRN (09:30)
[2020-03-12] MEDS ORDERED: ONDANSETRON HCL 4 MG/2 ML VIAL IV PRN (09:30)
[2020-03-12] MEDS ORDERED: FUROSEMIDE 40 MG/4 ML VIAL IV ONE (09:30)
[2020-03-12] MEDS ORDERED: HYDROcodone-ACET 10/325MG TAB PO PRN (09:30)
[2020-03-12] MEDS ORDERED: NITROGLYCERIN 0.4 MG SL TAB SL PRN (09:30)
[2020-03-12] MEDS ORDERED: ALBUTEROL SULF 2.5 MG/0.5ML(0.5%) NEB SOLN NEB PRN (09:30)
[2020-03-12] MEDS ORDERED: PANTOPRAZOLE 40 MG TAB PO SCH (10:00)
[2020-03-12] MEDS ORDERED: PREGABALIN 50 MG PO SCH (10:00)
[2020-03-12] MEDS ORDERED: FAMOTIDINE 20 MG TAB PO SCH (10:00)
[2020-03-12] MEDS ORDERED: CARISOPRODOL 350 MG TAB PO SCH (14:00)
== END 2020-03-12 09:54 | disposition left against medical advice (07) ==
LOC: ER 05:13 → EDBD 05:13 → ER 09:54
DX: J44.1 Chronic obstructive pulmonary disease with (acute) exacerbation (principal); J96.01 Acute respiratory failure with hypoxia; F17.210 Nicotine dependence, cigarettes, uncomplicated; I11.0 Hypertensive heart disease with heart failure; I50.9 Heart failure, unspecified; I25.2 Old myocardial infarction; Z86.73 Personal history of transient ischemic attack (TIA), and cerebral infarction without residual deficits; Z53.29 Procedure and treatment not carried out because of patient's decision for other reasons
CPT/HCPCS: 36415; 71045; 80053; 81001; 83880; 84484; 85025; 85610; 85730; 93005; 94640; 94660; 96361; 96374; 99291; J2930; J7030

== ENCOUNTER 2020-03-15 08:23 | Inpatient (IN) | payer MEDICARE, OTHER ==
[~2020-03-15] VITALS: Ht 165.1 cm; Wt 89.4 kg
[2020-03-15] MEDS ORDERED: IPRATROPIUM BROM 0.5 MG/2.5ML INH SOL NEB ONE (08:45)
[2020-03-15] MEDS ORDERED: methylPREDNISolone SOD SUCC 125 MG/2 ML VL IV ONE (08:45)
[2020-03-15] MEDS ORDERED: ALBUTEROL SULF 2.5 MG/0.5ML(0.5%) NEB SOLN NEB ONE (08:45)
[2020-03-15 09:21] LABS: Basophils # (auto) 0 10 ^3/uL (0-0.2); Eosinophils # (auto) 0 10 ^3/uL (0-0.8); Eosinophils % (auto) 0.1 % (0.0-7.0); Hemoglobin 17.2 g/dL (13.5-17.5); Lymphocytes # (auto) 0.7 10 ^3/uL (0.4-5.4); Monocytes # (auto) 0.5 10 ^3/uL (0-1.3); White Blood Cell 12.3 10^3/uL (4.4-10.8)
[2020-03-15 09:24] LABS: Basophils % (auto) 0.2 % (0.0-2.0); Hematocrit 53.2 % (41.0-53.0); Lymphocytes % (auto) 5.4 % (10.0-50.0); Mean Corpuscular Hemoglobin 29.3 pg (28.0-32.0); Mean Corpuscular Hgb Conc. 32.3 g/dL (32.0-36.0); Mean Corpuscular Volume 90.7 fL (80.0-100.0); Monocytes % (auto) 4.4 % (0.0-12.0); Neutrophils % (auto) 89.9 % (37.0-80.0); Nucleated Red Blood Cells % 0.1 %; Platelet Count (auto) 162 10^3/uL (140-450); Red Blood Cells 5.86 10^6/uL (4.5-5.90); Red Cell Distribution Width 19.4 % (11.8-14.3)
[2020-03-15 09:25] LABS: Urine Bacteria NONE SEEN /hpf (None Seen); Urine Blood Negative /uL (Negative); Urine Specific Gravity 1.008 (1.001-1.035); Urine WBC <1 /hpf (0 - 3)
[2020-03-15 09:39] LABS: Albumin 3.6 g/dL (3.4-5.0); Anion Gap 4 (5-15); Blood Urea Nitrogen 10 mg/dL (7-18); Calcium 8.5 mg/dL (8.5-10.1); Carbon Dioxide 29 mmol/L (21-32); Chloride 104 mmol/L (98-107); Glucose 156 mg/dL (74-106); Potassium 4.2 mmol/L (3.5-5.1); Sodium 137 mmol/L (136-145)
[2020-03-15 09:45] LABS: Alanine Aminotransferase 61 U/L (16-61); Alkaline Phosphatase 65 U/L (45-117); Aspartate Aminotransferase 36 U/L (15-37); BUN/Creatinine Ratio 12.5; Bilirubin, Total 0.4 mg/dL (0.2-1.0); GFR African American 126 mL/min; GFR Non-African American 104 mL/min; Total Protein 6.5 g/dL (6.4-8.2)
[2020-03-15] MEDS ORDERED: ACETAMINOPHEN 325 MG TAB PO PRN (10:45)
[2020-03-15] MEDS ORDERED: DOCUSATE SOD 100 MG CAP PO PRN (10:45)
[2020-03-15] MEDS ORDERED: ONDANSETRON HCL 4 MG/2 ML VIAL IV PRN (10:45)
[2020-03-15] MEDS ORDERED: NITROGLYCERIN 0.4 MG SL TAB SL PRN (10:45)
[2020-03-15] MEDS ORDERED: hydrALAZINE HCL 20 MG/ML VL IV PRN (11:00)
[2020-03-15] MEDS ORDERED: cefTRIAXone 1GM/50ML D5W 50 ML IV ONE (11:00)
[2020-03-15 11:01] VITALS: BP 123/85
[2020-03-15] MEDS: CARISOPRODOL 350 MG TAB PO SCH ×2 (14:00→21:57)
[2020-03-15] MEDS: SODIUM CHLOR 0.9% PF (SALINE LOCK) 10ML VIAL/SYR IV SCH ×2 (14:00→21:57)
--- NOTE | 2020-03-15 14:40 | NUR ---
Patient transferred from ER Report was called in given by ER nurse Sujey. Patient was transported by electric wheelchair with belongings and ER staff. No signs of respiratory distress or pain. A/O x 4. Temp 97.6, BP 148/112, HR 115, RR, 20, O2 93 on 4L NC. PICC line nurse present. Patient oriented to the room and call light. Instructed to call for help PRN. Patient verbalized understanding. Will continue to monitor.
[2020-03-15] MEDS ORDERED: DEXTROSE (50%) 50ML SYRG IV PRN (15:00)
--- NOTE | 2020-03-15 15:28 | NUR ---
MIDLINE UNSUCCESSFUL MIDLINE PLACEMENT X1. PATIENT UNWILLING FOR MORE THAN ONE ATTEMPT AT THIS TIME. PATIENT HAS A PATENT RIGHT UPPER ARM 20 G PIV. PRIMARY RN NIKUNJ NOTIFIED.
--- NOTE | 2020-03-15 16:00 | NUR ---
Raymundo Bravo at bedside Dr. Raymundo Bravo WEB CONTENT DIRECTOR at bedside discussing the POC with the patient. Med reconciliation was obtained and orders were given.
[2020-03-15 17:00] VITALS: BP 148/112
[2020-03-15] MEDS: InsuLIN REG 1unit/0.01ml Soln (100units/ml) SC SCH ×2 (17:00→22:49)
[2020-03-15] MEDS: ACCU-CHEK COMFORT CURVE STRIP VI SCH ×2 (17:00→22:49)
--- NOTE | 2020-03-15 17:02 | NUR ---
WOUND CARE NOTE: Wound care in to see patient per wound care request regarding Cellulitis to lower extremity. Patient is 64 years old male with admitting diagnosis of SOB, COPD Exacerbation, Cellulitis Lower Extremity. Patient is resting in bed in Rm. 220B. He's awake, alert and oriented. He reported pain on his foot and back, STEPHIE Madera at bedside, aware and will medicate patient. Patient is self turning and repositioning and his Gianfranco score is 18. Patient's Rt lower leg noted with edema and erythema. His Rt palomo has multi open partial thickness wounds/blisters the largest measuring 0.5x0.5cm at proximal aspect of Rt palomo. Minimal serous drainage noted, no odor noted. Patient's bilateral feel has dry skin with calloused Rt great toe. Patient reported that his Rt lower leg is "draining pus". Cleansed patient's Rt palomo wound with NS, took specimen for wound culture and sent to lab for processing. Photograph of patient's Rt lower leg are taken for reference. Applied Thera honey gel to Rt palomo open wounds, covered with absorbent pad, wrapped with Kerlix and secured with tape. No other wound or pressure injury noted. Patient tolerated well. Patient has an active cardiology consult. No further wound care monitoring needed at this time. RECOMMENDATION: Nursing to continue with Daily/PRN dressing change to Rt palomo wounds per MD order, elevate edematous extremity on pillows. Addendum: 03/15/20 at 1834 by Sonali Rockwell RN Amended: Links added.
[2020-03-15 17:27] VITALS: BP 148/112
--- NOTE | 2020-03-15 17:52 | NUR ---
Rt called RT called and is on their way for breathing treatment. Patient request.
[2020-03-15] MEDS: IPRATROPIUM BROM 0.5 MG/2.5ML INH SOL NEB PRN (18:27)
[2020-03-15] MEDS: ALBUTEROL SULF 2.5 MG/0.5ML(0.5%) NEB SOLN NEB PRN (18:27)
--- NOTE | 2020-03-15 19:25 | NUR ---
DR BA AT BEDSIDE.
--- NOTE | 2020-03-15 19:30 | NUR ---
PT LEFT THE UNIT TO GO OUTSIDE.
--- NOTE | 2020-03-15 20:30 | NUR ---
PT BACK TO HIS ROOM WITH BRENDON VINES.
[2020-03-15] MEDS: methylPREDNISolone SOD SUCC 125 MG/2 ML VL IV SCH (21:57)
[2020-03-15] MEDS: FAMOTIDINE 20 MG TAB PO SCH (21:57)
[2020-03-15] MEDS: LORazepam 0.5 MG TAB PO PRN (21:58)
[2020-03-15 22:00] VITALS: BP 125/80
--- NOTE | 2020-03-16 00:30 | NUR ---
PT LEAVING THE UNIT TO GO OUTSIDE.
[2020-03-16] MEDS: HYDROmorphone HCL 2 MG TAB PO PRN ×3 (00:58→16:04)
--- NOTE | 2020-03-16 01:20 | NUR ---
PT BACK TO HIS ROOM.
[2020-03-16] MEDS: IPRATROPIUM BROM 0.5 MG/2.5ML INH SOL NEB PRN ×4 (03:47→19:28)
[2020-03-16] MEDS: ALBUTEROL SULF 2.5 MG/0.5ML(0.5%) NEB SOLN NEB PRN ×4 (03:47→19:28)
[2020-03-16 04:43] VITALS: BP 133/92
[2020-03-16 05:42] LABS: Basophils # (auto) 0 10 ^3/uL (0-0.2); Basophils % (auto) 0.1 % (0.0-2.0); Eosinophils # (auto) 0 10 ^3/uL (0-0.8); Hematocrit 51.2 % (41.0-53.0); Hemoglobin 16.4 g/dL (13.5-17.5); Lymphocytes # (auto) 0.4 10 ^3/uL (0.4-5.4); Lymphocytes % (auto) 3.1 % (10.0-50.0); Mean Corpuscular Hemoglobin 29.3 pg (28.0-32.0); Mean Corpuscular Hgb Conc. 32.1 g/dL (32.0-36.0); Mean Corpuscular Volume 91.1 fL (80.0-100.0); Monocytes # (auto) 0.3 10 ^3/uL (0-1.3); Monocytes % (auto) 2.1 % (0.0-12.0); Neutrophils # (auto) 13.3 10 ^3/uL (1.6-8.6); Neutrophils % (auto) 94.7 % (37.0-80.0); Platelet Count (auto) 154 10^3/uL (140-450); Red Blood Cells 5.62 10^6/uL (4.5-5.90); Red Cell Distribution Width 19.4 % (11.8-14.3); White Blood Cell 14.1 10^3/uL (4.4-10.8)
[2020-03-16 06:11] LABS: Potassium 4.5 mmol/L (3.5-5.1)
[2020-03-16 06:21] LABS: Albumin 3.6 g/dL (3.4-5.0); BUN/Creatinine Ratio 19.6; Bilirubin, Total 0.4 mg/dL (0.2-1.0); Calcium 8.8 mg/dL (8.5-10.1); Magnesium 2.6 mg/dL (1.6-2.6); Total Protein 6.5 g/dL (6.4-8.2)
[2020-03-16] MEDS: methylPREDNISolone SOD SUCC 125 MG/2 ML VL IV SCH ×3 (06:21→21:24)
[2020-03-16] MEDS: CARISOPRODOL 350 MG TAB PO SCH ×3 (06:21→21:25)
[2020-03-16] MEDS: InsuLIN REG 1unit/0.01ml Soln (100units/ml) SC SCH ×4 (06:22→21:25)
[2020-03-16] MEDS: SODIUM CHLOR 0.9% PF (SALINE LOCK) 10ML VIAL/SYR IV SCH ×3 (06:23→21:24)
[2020-03-16] MEDS: ACCU-CHEK COMFORT CURVE STRIP VI SCH ×4 (06:23→21:25)
--- NOTE | 2020-03-16 07:40 | NUR ---
PATIENT OUT OF ROOM.
--- NOTE | 2020-03-16 08:20 | NUR ---
OPENING SHIFT NOTE: PATIENT BACK IN ROOM. SHORT OF BREATH, PATIENT REPORTS "I'M ALWAYS SHORT OF BREATH." PATIENT IN PERSONAL SCOOTER, ABLE TO INFORM THIS RN THAT HE TURNS AND OFFLOADS IN SCOOTER, AND ELEVATES LEGS. A/OX4 UPDATED ON HOSPITAL POLICY AND PLAN OF CARE. IV PATENT AND INTACT. WILL CONTINUE TO MONITOR.
[2020-03-16] MEDS: cefTRIAXone 1GM/50ML D5W 50 ML IV SCH (09:22)
[2020-03-16 09:25] VITALS: BP 151/98
[2020-03-16] MEDS: FUROSEMIDE 20 MG TAB PO SCH (09:42)
[2020-03-16] MEDS: POTASSIUM CHLORIDE 8 MEQ TAB PO SCH (09:42)
[2020-03-16] MEDS: FAMOTIDINE 20 MG TAB PO SCH ×2 (09:43→21:25)
[2020-03-16 13:00] VITALS: BP 152/100
[2020-03-16] MEDS: LORazepam 0.5 MG TAB PO PRN (16:53)
[2020-03-16 17:02] VITALS: BP 130/96
--- NOTE | 2020-03-16 18:30 | NUR ---
MD FREDDY DIAZ.
--- NOTE | 2020-03-16 19:01 | NUR ---
CARE ENDORSED TO NOC RN.
--- NOTE | 2020-03-16 19:20 | NUR ---
OPENING SHIFT NOTE Assumed care of patient, patient is alert and oriented and currently on 4L NC. IV to the Left wrist flushed with 10 ml NS intact and patent. Patient is ambulatory via motorized wheelchair. Dressing to the right lower extremity is clean dry and intact. POC discussed with patient, all questions answered and patient verbalized understanding. Bed in lowest position, locked, side rails up x2. Call light within reach, patient encouraged to call for assistance. Will continue to monitor Q1hr PRN.
--- NOTE | 2020-03-16 19:28 | NUR ---
PAGED TO BEDSIDE FOR PRN TX. UPON ARRIVAL PT WALKING AROUND ROOM. STATING HE CANT BREATHE. EXPLAINED TO PT HE NEEDS TO CALM DOWN AND SIT DOWN TO TAKE A BREATHING TX. PT SAT DOWN STILL AGITATED PT REQUESTING FOR CPAP TO HELP HIS SOB. EXPLAINED THIS REQUESTED THERAPY IS NOT ORDERED, AND IS NOT INDICATED AT THIS TIME FOR SOB. IT WAS ALSO EXPLAINED TO PT THAT WITH HIS FREQUENT TIMES HE GETS UP AND GOES DOWN STAIRS WITHOUT O2 SOMETIMES CPAP THERAPY WONT BE AFFECTIVE ANYWAY. PT DENIES HE IS GOING DOWN TO SMOKE. PT STATES " I JUST GO DOWN WHEN I FEEL COMFORTABLE ENOUGH AND ONLY FOR FRESH AIR". THIS RT DID NOT MENTION ANYTHING ABOUT HIM GOING DOWN TO SMOKE JUST ABOUT GOING DOWNSTAIRS. PT HAS BEEN SEEN MANY TIMES GOING DOWN VIA WHEELCHAIR TO SMOKE BY STAFF. STEPHIE ANGELES COMMUNICATED ON PT FINDINGS AND COMPLAINTS. RN AWARE I CAN BE PAGED AT ANY TIME PT IS SOB OR HAVING ANY DIFFICULTY WITH HIS BREATHING.
[2020-03-16 22:00] VITALS: BP 136/104
--- NOTE | 2020-03-17 00:50 | NUR ---
PATIENT OFF UNIT TO GO OUTSIDE
--- NOTE | 2020-03-17 01:11 | NUR ---
PT BACK ON UNIT TO HIS ROOM.
[2020-03-17] MEDS: HYDROmorphone HCL 2 MG TAB PO PRN ×3 (01:15→23:48)
--- NOTE | 2020-03-17 01:52 | NUR ---
RT PAGED Patient requesting breathing treatment at this time.
--- NOTE | 2020-03-17 02:00 | NUR ---
PAGED TO BEDSIDE, PT DOES NOT REQUIRE RT ANYMORE. PT APPEARS TO BE GETTING READY TO GO IN HIS WHEELCHAIR DOWNSTAIRS. RN AWARE.
--- NOTE | 2020-03-17 02:04 | NUR ---
PATIENT OFF UNIT TO GO OUTSIDE
--- NOTE | 2020-03-17 02:17 | NUR ---
PT BACK ON UNIT TO HIS ROOM.
[2020-03-17] MEDS: LORazepam 0.5 MG TAB PO PRN (02:28)
[2020-03-17] MEDS: ALBUTEROL SULF 2.5 MG/0.5ML(0.5%) NEB SOLN NEB PRN ×3 (04:15→13:54)
[2020-03-17] MEDS: IPRATROPIUM BROM 0.5 MG/2.5ML INH SOL NEB PRN ×3 (04:15→13:54)
--- NOTE | 2020-03-17 04:30 | NUR ---
DRESSING OFF Patient removed the wound dressing off the right lower leg and stated "He didn't need it anymore its all dried up" patient educated on the importance of needing the dressing to heal his wound. Patient refused to have the dressing re-dressed. Wound is currently not weeping and is dry. Will continue to monitor and reinforce the need for the wound care.
--- NOTE | 2020-03-17 04:34 | NUR ---
POST PRN MED NEB TX PT YELLING " I NEED THE SHOT! THE SHOT THAT HELPS ME BREATHE!" ALSO " I CANT BREATHE!". POX ON PT POX ON 5LPM NC 95%. PT ALSO YELLED "IM GOING TO THE ER". RTS AND RNS LEAVE THE ROOM THE PT THREW A LARGE OBJECT AND STARTED CURSING MORE.
--- NOTE | 2020-03-17 04:35 | NUR ---
RT WAS PAGED FOR A BREATHING TREATMENT. RT CAME BEDSIDE AND ADMINISTERED BREATHING TREATMENT. WHILE 2 RT'S AND NURSE WERE BEDSIDE PATIENT BECAME AGITATED DUE TO HIS STEROIDS NOT BEING DUE AT THIS TIME. PATIENT BECAME SWEATY AND RED IN THE FACE AND STARTED CUSSING AND KICKED THE CHAIR AND HIT THE BED. PATIENT THEN STATED "HE WAS GOING DOWN TO ER TO GET THE MEDICATIONS THAT HE WANTED" PATIENT LEFT UNIT
--- NOTE | 2020-03-17 04:40 | NUR ---
PATIENT IN ER/SECURITY PAGED ER called to let known that the patient was down in the ER having difficulty breathing. ER then replaced his oxygen tank and told him he needed to go back to his room. Security was notified that the patient was down in the ER.
--- NOTE | 2020-03-17 04:45 | NUR ---
BACK ON UNIT Patient back on unit and in room connected to [facility]. SOB on exertion as patients baseline noted. Patient is sitting in chair next to bed. Agitation has subsided, medication administration schedule discussed with patient. Patient verbalized understanding. Will continue to monitor and administer medication when due at 0600.
[2020-03-17 05:00] VITALS: BP 144/98
--- NOTE | 2020-03-17 05:41 | NUR ---
PATIENT OFF UNIT TO GO OUTSIDE
[2020-03-17] MEDS: methylPREDNISolone SOD SUCC 125 MG/2 ML VL IV SCH ×3 (05:56→22:11)
[2020-03-17] MEDS: SODIUM CHLOR 0.9% PF (SALINE LOCK) 10ML VIAL/SYR IV SCH ×3 (05:56→22:20)
[2020-03-17] MEDS: CARISOPRODOL 350 MG TAB PO SCH ×3 (05:56→22:11)
--- NOTE | 2020-03-17 05:56 | NUR ---
PT BACK ON UNIT TO HIS ROOM.
--- NOTE | 2020-03-17 06:23 | NUR ---
PATIENT OFF UNIT
--- NOTE | 2020-03-17 06:30 | NUR ---
PATIENT WAS SEEN BY POLICE OFFICER CHARGE AT [facility] [address] ROOM INSPECTOR DISPATCH CALLED REGARDING PATIENT LEAVING PREMISES WITH IV ACCESS, HOSPITAL GOWN, AND OXYGEN TANK.
[2020-03-17] MEDS: ACCU-CHEK COMFORT CURVE STRIP VI SCH ×4 (06:45→22:20)
[2020-03-17] MEDS: InsuLIN REG 1unit/0.01ml Soln (100units/ml) SC SCH ×4 (06:46→22:12)
--- NOTE | 2020-03-17 07:28 | NUR ---
CARE ENDORSED TO DAY SHIFT RN
--- NOTE | 2020-03-17 07:30 | NUR ---
Opening Shift Note Assumed care of patient, awake and alert. No S/S of distress/SOB or pain. Instructed on POC and to call for assistance PRN, will continue to monitor for changes Q1hr and PRN. Bed in lowest position, top two side rails up, call light within reach.
[2020-03-17 08:33] LABS: Basophils # (auto) 0.1 10 ^3/uL (0-0.2); Basophils % (auto) 0.3 % (0.0-2.0); Eosinophils # (auto) 0 10 ^3/uL (0-0.8); Hemoglobin 17.3 g/dL (13.5-17.5); Lymphocytes # (auto) 0.3 10 ^3/uL (0.4-5.4); Lymphocytes % (auto) 1.5 % (10.0-50.0); Mean Corpuscular Hemoglobin 29.5 pg (28.0-32.0); Mean Corpuscular Hgb Conc. 32.6 g/dL (32.0-36.0); Mean Corpuscular Volume 90.4 fL (80.0-100.0); Monocytes # (auto) 0.6 10 ^3/uL (0-1.3); Monocytes % (auto) 2.7 % (0.0-12.0); Neutrophils # (auto) 19.8 10 ^3/uL (1.6-8.6); Neutrophils % (auto) 95.5 % (37.0-80.0); Platelet Count (auto) 165 10^3/uL (140-450); Red Blood Cells 5.87 10^6/uL (4.5-5.90); Red Cell Distribution Width 19.5 % (11.8-14.3); White Blood Cell 20.7 10^3/uL (4.4-10.8)
[2020-03-17 08:58] VITALS: BP 131/92
[2020-03-17 09:10] LABS: Albumin 3.9 g/dL (3.4-5.0); Calcium 8.6 mg/dL (8.5-10.1); Potassium 4.6 mmol/L (3.5-5.1)
[2020-03-17 09:12] LABS: Bilirubin, Total 0.4 mg/dL (0.2-1.0); Total Protein 6.7 g/dL (6.4-8.2)
--- NOTE | 2020-03-17 09:20 | NUR ---
PT STATES HE IS GOING TO THE STORE [address], MADE PT AWARE THAT IT IS AGAINST HOSPITAL RULES TO GO OUTSIDE OF FACILITY THERE IS NO ASSISTANCE AVAILABLE IF AN EMERGENCY WERE TO OCCUR. MADE PT AWARE THAT FOR HIS SAFETY HE IS NOT ABLE TO LEAVE THE FACILITY WITH IV ACCESS, AND SOLAR INSTALLER TECHNICIAN MUST BE CALLED IF HE LEAVES FACILITY GROUNDS WITH IV ACCESS. PT MADE AWARE IF HE LEAVES HIS ROOM THERE IS NO ASSISTANCE AVAILABLE QUICKLY IF HE WOULD NEED ASSISTANCE, PER PT HE DOES NOT CARE AND HE KNOWS THAT NO ASSISTANCE MAY BE AVAILABLE. PER PT HE IS ONLY GOING OUTSIDE FOR A FEW MINUTES. MADE PT AWARE OF THE RISKS OF SMOKING WHILE ON OXYGEN, PT STATES HE IS NOT GOING TO SMOKE. PT WENT ON TO CUSS AND SAY WE ARE TOO CONCERNED WITH WHERE HE IS AND WHAT RULES HE IS BREAKING. ONCE AGAIN EDUCATED ON THE IMPORTANCE OF NOT LEAVING THE FACILITY AND STAYING IN HIS ROOM FOR HIS SAFETY AND TO BE ABLE TO PROVIDE CARE. HE IGNORED AND SAID HE IS GOING OUTSIDE AND LEFT ON HIS MOTORIZED WHEELCHAIR. 924-RECEIVED CALL FROM [employer] THAT PT ASKED THEM TO BUY HIM SOMETHING FROM THE STORE, THEY WERE UNABLE TO. WAS MADE AWARE THAT PT IS PROBABLY GOING TO STORE. [id number]-ISOTOPE TECHNICIAN MADE RN AWARE THAT PT IS ACROSS THE [address] AT THE STORE, PT IS VISIBLE FROM THE WINDOW. MADE TELEPHONE MESSENGER SWETHA AWARE THAT PT IS ACROSS THE STRE[address], HOUSE SHIFT WAS ALSO MADE AWARE SHE WAS IN THE OFFICE WELL. MADE TELEPHONE MESSENGER THAT WILL BE CALLED PT IS NOT ON PREMISES AND HAS IV ACCESS.
--- NOTE | 2020-03-17 09:40 | NUR ---
BA CALLED CALLED 'S DISPATCH MADE AWARE THAT PT LEFT FACILITY WITH IV ACCESS, SPOKE TO KAAMLJIT. PER KAMALJIT, BA WILL BE MADE AWARE.
--- NOTE | 2020-03-17 10:15 | NUR ---
PT BACK IN ROOM PT BACK IN ROOM. PT WAS ONCE AGAIN EDUCATED ON THE IMPORTANCE AND OF STAYING IN THE ROOM AND NOT LEAVING THE FACILITY TO THE STORE. PT STATES HE WILL NOT GO AGAIN, PER PROCESSING OPERATOR AND SECURITY.
[2020-03-17] MEDS: FUROSEMIDE 20 MG TAB PO SCH (11:09)
[2020-03-17] MEDS: FAMOTIDINE 20 MG TAB PO SCH ×2 (11:09→22:11)
[2020-03-17] MEDS: POTASSIUM CHLORIDE 8 MEQ TAB PO SCH (11:10)
[2020-03-17] MEDS: cefTRIAXone 1GM/50ML D5W 50 ML IV SCH (11:30)
--- NOTE | 2020-03-17 12:30 | NUR ---
PT GOING OUTSIDE PT LEFT ROOM AGAIN HE STATES HE IS GOING TO GO OUTSIDE HE CANNOT STAY IN HIS ROOM. PT STATES HE WILL NOT SMOKE. EDUCTED PT ON THE RISKS AND DANGER OF SMOKING WHILE ON OXYGEN. PT STATES HE IS JUST GOING OUTSIDE AND NOT SMOKING. ONCE AGAIN INFORMED PT OF THE RISK OF GOING OUTSIDE THERE IS NO STAFF AVAILABLE IF NEEDED. PT ONCE AGAIN STATES HE IS GOING OUTSIDE. JAVA WEB USER INTERFACE DEVELOPER MADE AWARE.
[2020-03-17 12:57] VITALS: BP 155/93
--- NOTE | 2020-03-17 14:00 | NUR ---
PT LEFT ROOM AGAIN ONCE AGAIN PT LEFT THE ROOM. PT DID NOT MAKE STAFF AWARE.
--- NOTE | 2020-03-17 14:15 | NUR ---
PT BACK IN ROOM. PT STABLE AT THIS TIME. EDUCATED PT ON THE IMPORTANCE OF MAKING STAFF AWARE WHEN HE LEAVES ROOM.
--- NOTE | 2020-03-17 16:30 | NUR ---
PT GOING OUTSIDE TO SMOKE EDUCATED PT AGAIN ON THE IMPORTANCE OF STAYING IN HIS ROOM DUE TO SAFETY ISSUES, NO MEDICAL PERSONNEL IS AVAILABLE OUTSIDE IF SOMETHING HAPPENS. HE STILL CONTINUES TO STATE HE WILL GO OUTSIDE. EDUCATED PT ON THE RISKS AND DANGER OF SMOKING IF HE HAS O2. PER PT HE IS NOT SMOKING, HE JUST WANTS TO GO OUTSIDE. DR. ARMAS, AND DR SANCHEZ ARE AWARE OF PT GOING OUTSIDE.
[2020-03-17 16:37] VITALS: BP 144/95
[2020-03-17] MEDS: IPRATROPIUM BROM 0.5 MG/2.5ML INH SOL NEB SCH ×3 (18:30→22:02)
[2020-03-17] MEDS: ALBUTEROL SULF 2.5 MG/0.5ML(0.5%) NEB SOLN NEB SCH ×3 (18:31→22:03)
--- NOTE | 2020-03-17 19:25 | NUR ---
CHANGE OF SHIFT REPORT GIVEN TO EATING DISORDER SPECIALIST RN. PT STABLE AT THIS TIME.
[2020-03-17 20:00] VITALS: BP 154/103
--- NOTE | 2020-03-17 21:00 | NUR ---
Patient Behavior Spoke to the patient about his recent behavior of leaving the floor for long periods of time when he is supposed to be an inpatient. The patient immediately denied smoking, stated he has anxiety and depression, gets stir crazy and has to leave. I explained if he leaves the floor then it has to be for 5-10 mins max. He stated he wasn't going outside because its too cold. Will continue to monitor.
--- NOTE | 2020-03-17 21:09 | NUR ---
Patient Own Meds Witness the patient self medicating with an Albuterol inhaler and nebulizer treatment at 2105hrs. I explained he can not do that here as we may inadvertently give him too much medication. The patient said he had no choice as he had to breath. He also requested a CPAP machine saying he uses one at home. Will check on an order for a CPAP. Will continue to monitor.
[2020-03-17] MEDS: TEMAZEPAM 15 MG CAP PO PRN (23:48)
[2020-03-18] VITALS (7 sets, daily range): BP systolic 126–146; BP diastolic 74–99
[2020-03-18] MEDS: ALBUTEROL SULF 2.5 MG/0.5ML(0.5%) NEB SOLN NEB SCH ×6 (02:13→22:45)
[2020-03-18] MEDS: IPRATROPIUM BROM 0.5 MG/2.5ML INH SOL NEB SCH ×6 (02:13→22:44)
--- NOTE | 2020-03-18 02:23 | NUR ---
Respiratory note: ATTEMPTED TO PLACE THE PATIENT ON CPAP AFTER HIS SCHEDULED MED NEB TX. THE PT STATED HE WASN'T READY TO GO TO SLEEP YET. HE ALSO STATED THAT HE USES HIS CPAP ONLY FOR A FEW MINUTES AT A TIME. PT AWARE TO CALL FOR RT WHEN HE'S READY TO GO ON CPAP.
[2020-03-18] MEDS: LORazepam 0.5 MG TAB PO PRN ×2 (02:40→20:11)
[2020-03-18] MEDS: HYDROcodone-ACET 5/325MG TAB PO PRN ×2 (02:40→20:11)
[2020-03-18] MEDS: InsuLIN REG 1unit/0.01ml Soln (100units/ml) SC SCH ×4 (06:34→21:29)
[2020-03-18] MEDS: CARISOPRODOL 350 MG TAB PO SCH ×3 (06:36→21:19)
[2020-03-18] MEDS: methylPREDNISolone SOD SUCC 125 MG/2 ML VL IV SCH ×3 (06:36→21:19)
[2020-03-18 06:41] LABS: Basophils # (auto) 0.1 10 ^3/uL (0-0.2); Basophils % (auto) 0.4 % (0.0-2.0); Eosinophils # (auto) 0 10 ^3/uL (0-0.8); Eosinophils % (auto) 0.1 % (0.0-7.0); Hematocrit 49.5 % (41.0-53.0); Lymphocytes # (auto) 0.4 10 ^3/uL (0.4-5.4); Lymphocytes % (auto) 2.1 % (10.0-50.0); Mean Corpuscular Hemoglobin 29.4 pg (28.0-32.0); Mean Corpuscular Hgb Conc. 32.3 g/dL (32.0-36.0); Monocytes # (auto) 0.5 10 ^3/uL (0-1.3); Monocytes % (auto) 2.9 % (0.0-12.0); Neutrophils # (auto) 16.3 10 ^3/uL (1.6-8.6); Neutrophils % (auto) 94.5 % (37.0-80.0); Nucleated Red Blood Cells % 0.1 %; Platelet Count (auto) 144 10^3/uL (140-450); Red Blood Cells 5.43 10^6/uL (4.5-5.90); Red Cell Distribution Width 19.4 % (11.8-14.3); White Blood Cell 17.2 10^3/uL (4.4-10.8)
[2020-03-18] MEDS: ACCU-CHEK COMFORT CURVE STRIP VI SCH ×4 (06:43→21:20)
--- NOTE | 2020-03-18 07:05 | NUR ---
Good Shift The patient and I had a talk at the beginning of the shift and I was able to lay some ground rules about his stay. Some of the issues seemed to be communication. Explained we did not want him going outside but if he went no more than ten mins. The patient stated he didn't smoke and didn't understand why everyone thought that was the case. Explained people who do that usually are smokers. He kept to his word and was off the floor no more than 5-10 mins each time. He would inform me before leaving and when he came back. He tolerated all treatments, complained of pain once throughout. Will continue to monitor.
[2020-03-18 07:06] LABS: Potassium 5.3 mmol/L (3.5-5.1)
[2020-03-18 07:14] LABS: Albumin 3.2 g/dL (3.4-5.0); BUN/Creatinine Ratio 32.9; Bilirubin, Total 0.6 mg/dL (0.2-1.0); Calcium 8.5 mg/dL (8.5-10.1); Magnesium 3.1 mg/dL (1.6-2.6)
--- NOTE | 2020-03-18 07:35 | NUR ---
PT FOUND IN ROOM ON HIS PERSONAL ELECTRIC WHEELCHAIR. PT REORIENTED TO NAME. PT APPEARS DROWSY AND SLEEPY, REFUSES TO GET IN BED OR COMPLY WITH COMMANDS. AUDIBLE WHEEZING. PT CONTINUOUSLY LEAVES UNIT. CHARGE NURSE AWARE OF SITUATION.
[2020-03-18] MEDS: cefTRIAXone 1GM/50ML D5W 50 ML IV SCH (09:07)
[2020-03-18] MEDS: FAMOTIDINE 20 MG TAB PO SCH ×2 (09:07→21:19)
[2020-03-18] MEDS: FUROSEMIDE 20 MG TAB PO SCH (09:07)
[2020-03-18] MEDS: POTASSIUM CHLORIDE 8 MEQ TAB PO SCH (09:08)
[2020-03-18] MEDS ORDERED: AZITHROMYCIN 500MG/ 250ML 250 ML IV SCH (12:45)
[2020-03-18] MEDS ORDERED: ENOXAPARIN SOD 40 MG/0.4 ML SYRINGE SC ONE (12:45)
--- NOTE | 2020-03-18 12:59 | NUR ---
Nutrition Assessment Notes Please refer to link for full assessment notes. Est Energy needs: [id number] kcals (17-20 kcal/kgBW) Est Protein needs: 76-95 gms/day (0.8-1.0 gm/kgBW) Will continue to monitor and reassess prn. Addendum: 03/18/20 at [address] Amended: Links added.
--- NOTE | 2020-03-18 13:00 | NUR ---
ATTENDING BILLING AND INSURANCE COORDINATOR IN TO SEE PT. BILLING AND INSURANCE COORDINATOR MADE AWARE OF PT LEAVING UNIT, AND NON-COMPLIANCE WITH CARE.
[2020-03-18] MEDS: SODIUM CHLOR 0.9% PF (SALINE LOCK) 10ML VIAL/SYR IV SCH ×2 (13:25→21:19)
--- NOTE | 2020-03-18 18:45 | NUR ---
PT AWAKE, ALERT, ORIENTED. AUDIBLE WHEEZING, PT ON 5LNC, RT AT BEDSIDE FOR BREATHING Tx. THROUGHOUT SHIFT PT HAS BEEN NON-COMPLIANCE WITH OXYGEN THERAPY AT TIMES. GOES OFF UNIT AND COMES BACK. RESTLESS AT TIMES AND AGITATES AT TIMES.
[2020-03-18] MEDS: BUDESONIDE (INHALATION) 0.5 MG/2 ML NEB NEB SCH (19:18)
--- NOTE | 2020-03-18 19:35 | NUR ---
Opening Shift Note Assumed care of patient, awake and alert x 4. No S/S of distress/SOB. Patient is on 3 l/min NC. Bed is in lowest position and locked. Call light within reach. Board updated. Tele box number matches monitor and leads are in correct placement. Instructed on POC and to call for assist PRN, will continue to monitor for changes Q1hr and PRN.
[2020-03-18] MEDS: DOXYCYCLINE 100 MG TAB/CAP PO SCH (21:20)
[2020-03-19] MEDS: HYDROcodone-ACET 5/325MG TAB PO PRN ×2 (01:01→05:11)
--- NOTE | 2020-03-19 02:09 | NUR ---
Patient went downstairs to use Smoker's AMA.
--- NOTE | 2020-03-19 02:10 | NUR ---
Respiratory note: AT BEDSIDE FOR MED NEB TX. PT OFF UNIT, WILL RETURN AT A LATER TIME.
--- NOTE | 2020-03-19 02:37 | NUR ---
Went down to ED and escorted patient back to room. Patient was irritated that I "had to come down and get me." I explained to patient that the Smoker's AMA he signed was specifically only for 30 minutes and that after that he would have left completely AMA.
[2020-03-19] MEDS: IPRATROPIUM BROM 0.5 MG/2.5ML INH SOL NEB SCH ×6 (02:53→22:10)
[2020-03-19] MEDS: ALBUTEROL SULF 2.5 MG/0.5ML(0.5%) NEB SOLN NEB SCH ×6 (02:53→22:10)
--- NOTE | 2020-03-19 03:48 | NUR ---
Patient called and stated that "I can't breathe." Patient was hunched over the side of his bed and stated that even sitting in chair did not relieve his SOB. I checked his Oxygen saturation and discovered it was 92% on 4 l/min NC. Increased to 5 l/min. HR in 120s. RT called who placed him on CPAP. Patient became upset that i would not give him Solumedrol. I tried to explain to the patient that is was scheduled and that Solumedrol is not immediate acting and will not help SOB in the short term. Patient stated it worked for him and he wanted it. When I told him I could not do that, he stated he wanted me to call the hospitalist to have him transferred to [place]. I explained to him that he needed to try CPAP first before I would page physician. He called his sister to tell her what I was doing, then agreed to CPAP. Patient is now sitting in his chair, reclined, on CPAP. Patient agreed to have anxiety medication at 0400 when it is due. Will continue to assess.
[2020-03-19] MEDS: LORazepam 0.5 MG TAB PO PRN ×2 (04:04→21:09)
[2020-03-19 05:00] VITALS: BP 129/87
[2020-03-19] MEDS: methylPREDNISolone SOD SUCC 125 MG/2 ML VL IV SCH ×3 (05:10→17:05)
[2020-03-19] MEDS: CARISOPRODOL 350 MG TAB PO SCH ×3 (05:10→21:10)
[2020-03-19] MEDS: SODIUM CHLOR 0.9% PF (SALINE LOCK) 10ML VIAL/SYR IV SCH ×3 (05:10→21:09)
[2020-03-19] MEDS: BUDESONIDE (INHALATION) 0.5 MG/2 ML NEB NEB SCH ×2 (06:29→18:18)
[2020-03-19] MEDS: ACCU-CHEK COMFORT CURVE STRIP VI SCH ×4 (06:39→21:10)
[2020-03-19] MEDS: InsuLIN REG 1unit/0.01ml Soln (100units/ml) SC SCH ×4 (06:40→21:39)
--- NOTE | 2020-03-19 07:30 | NUR ---
PT IN ROOM SITTING IN WHEELCHAIR. PT AWAKE, ALERT, ORIENTEDx4 WHEEZING TO ALL MIR ON AUSCULTATION. ON 4LNC AT MOMENT. PT VERBALIZING FRUSTRATION DUE TO LAST NIGHTS INCIDENTS. PT UPSET AT UNIT'S GUIDELINES. PT GOES OFF UNIT. EXPLAINED TO PT TO LIMIT SESSIONS TO 10-15 MINUTES. PT STATES "I'M GOING DOWN NOW"
[2020-03-19 09:00] VITALS: BP 142/94
[2020-03-19] MEDS: ENOXAPARIN SOD 40 MG/0.4 ML SYRINGE SC SCH (10:13)
[2020-03-19] MEDS: FAMOTIDINE 20 MG TAB PO SCH ×2 (10:13→21:09)
[2020-03-19] MEDS: DOXYCYCLINE 100 MG TAB/CAP PO SCH ×2 (10:13→21:09)
[2020-03-19] MEDS: FUROSEMIDE 20 MG TAB PO SCH (10:13)
[2020-03-19] MEDS: POTASSIUM CHLORIDE 8 MEQ TAB PO SCH (10:14)
[2020-03-19 13:00] VITALS: BP 149/98
[2020-03-19 17:00] VITALS: BP 150/103
--- NOTE | 2020-03-19 19:01 | NUR ---
PT ANXIOUS AND RESTLESS. RT AT BEDSIDE. STOCKROOM COORDINATOR KRAFT AWARE OF CONDITION. ABG ORDERED. CALL DR. SANCHEZ WITH RESULTS.
--- NOTE | 2020-03-19 19:02 | NUR ---
PT ON CPAP.
--- NOTE | 2020-03-19 20:00 | NUR ---
RECEIVED PATIENT ON HIS SCOOTER, AAOX4. MILD SOB NOTED. NO DISTRESS THOUGH. PATIENT IS OBED ANXIOUS. COMPLAINED OF LEG PAIN AND ABDOMINAL PAIN. WILL MEDICATE PATIENT ORDERED. POCS DISCUSSED WITH PATIENT AND SHOWED UNDERSTANDING. WILL FOLLOW UP CARE.
--- NOTE | 2020-03-19 21:00 | NUR ---
MEDICATED PATIENT FRO PAIN. OFFERED SNACKS. PICKED UP BELONGINGS FROM THE FLOOR. CLEANED UP ROOM FULL OF MESS. REQUESTED TO GO OUTSIDE. WILL FOLLOW UP. PATIENT SIGNED AMA TO GO OUTSIDE. SHOWED UNDERSTANDING.
[2020-03-19] MEDS: HYDROmorphone HCL 2 MG TAB PO PRN (21:09)
--- NOTE | 2020-03-19 22:00 | NUR ---
O2 SAT IS 98% WITH NC AT 5LPM. BREATHING TREATMENT IS ADMINISTERED CARE OF RT. ADVISED PATIENT TO STAY IN BED. REFUSED AND PREFERRED TO STAY IN HIS SCOOTER.
[2020-03-19 22:06] VITALS: BP 133/84
[2020-03-19] MEDS: TEMAZEPAM 15 MG CAP PO PRN (23:55)
--- NOTE | 2020-03-20 | NUR ---
ER CALLED AND PATIENT IS IN THE ER AND TOLD EVERYONE THAT NO ONE IS TAKING CARE OF HIM ON THE FLOOR. MADE ER STAFF AWARE THAT THE PATIENT IS LYING AND EVERYTHING IS GIVEN TO HIM FAR MEDS IS CONCERNED INCLUDING HIS PERSONAL NEEDS LIKE SNACKS, COFFEE, BED SIDE CARE, ETC. WILL SPEAK WITH PATIENT, AGAIN.
[2020-03-20] MEDS: methylPREDNISolone SOD SUCC 125 MG/2 ML VL IV SCH ×4 (00:03→17:31)
--- NOTE | 2020-03-20 00:30 | NUR ---
ADVISED PATIENT TO STAY IN HIS ROOM AND TRY TO GET SOME SLEEP. HE SAID, HE CAN'T SLEEP. HE WILL PLAY ON HIS CELL PHONE, INSTEAD.
--- NOTE | 2020-03-20 00:50 | NUR ---
PATIENT TOLD ME TO ROAM AROUND THE STATION TO RELAX. ADVISED PATIENT THAT IT IS BEST FOR HIM TO STAY IN HIS ROOM HE MIGHT HAVE A FALL INCIDENT ALONG THE HALLWAY. HE REFUSED AND HE IS AWARE OF THE CONSEQUENCES.
--- NOTE | 2020-03-20 01:20 | NUR ---
STAFF FROM [facility] ESCORTED PATIENT BACK TO [facility] AND SAID THAT PATIENT ALMOST CRASHED IN ONE OF THE ROOMS AT THE [facility] BECAUSE PATIENT LOOKED SLEEPY. PATIENT IS AWARE OF THE SITUATION AND ADVISED HIM, AGAIN THAT IT HIS IN HIS BEST TO STAY IN THE ROOM RIGHT NOW DUE TO A POSSIBLE FALL INCIDENT. HE SAID, HE WILL STAY IN THE ROOM FOR NOW. NOTED.
[2020-03-20] MEDS: IPRATROPIUM BROM 0.5 MG/2.5ML INH SOL NEB SCH ×6 (02:08→22:58)
[2020-03-20] MEDS: ALBUTEROL SULF 2.5 MG/0.5ML(0.5%) NEB SOLN NEB SCH ×6 (02:08→22:59)
[2020-03-20 05:00] VITALS: BP 154/99
[2020-03-20] MEDS: SODIUM CHLOR 0.9% PF (SALINE LOCK) 10ML VIAL/SYR IV SCH ×3 (05:40→21:18)
[2020-03-20] MEDS: CARISOPRODOL 350 MG TAB PO SCH ×3 (05:41→21:17)
[2020-03-20] MEDS: ACCU-CHEK COMFORT CURVE STRIP VI SCH ×4 (05:41→21:38)
[2020-03-20] MEDS: HYDROmorphone HCL 2 MG TAB PO PRN ×2 (05:41→16:41)
[2020-03-20] MEDS: InsuLIN REG 1unit/0.01ml Soln (100units/ml) SC SCH ×4 (05:42→21:38)
--- NOTE | 2020-03-20 07:40 | NUR ---
opening note Assumed care of patient from NOC RN. Patient is AOx4, no s/s of distress noted. Bed is in lowest locked position, call light within reach and side rails up x2. Updated patient on plan of care and patient verbalized understanding. Will continue to monitor q1hr and PRN.
[2020-03-20 09:00] VITALS: BP 155/109
--- NOTE | 2020-03-20 09:28 | NUR ---
Breathing treatment Paged Respiratory for PRN treatments.
[2020-03-20] MEDS: BUDESONIDE (INHALATION) 0.5 MG/2 ML NEB NEB SCH ×2 (09:52→22:58)
[2020-03-20] MEDS: POTASSIUM CHLORIDE 8 MEQ TAB PO SCH (10:26)
[2020-03-20] MEDS: FAMOTIDINE 20 MG TAB PO SCH ×2 (10:26→21:17)
[2020-03-20] MEDS: DOXYCYCLINE 100 MG TAB/CAP PO SCH ×2 (10:27→21:16)
[2020-03-20] MEDS: ENOXAPARIN SOD 40 MG/0.4 ML SYRINGE SC SCH (10:27)
[2020-03-20] MEDS: FUROSEMIDE 20 MG TAB PO SCH (10:27)
[2020-03-20] MEDS: HYDROcodone-ACET 5/325MG TAB PO PRN (10:27)
--- NOTE | 2020-03-20 10:56 | NUR ---
assessment Patient is a 64 year old male who is alert and oriented. Prior to admission patient rented a room and needed assistance. Per patient his daughter Elsi helps with his appointments, dressing, and shopping. I have provided patient with [facility] resources. Per patient he had [facility] in the past and fired his caregiver. Patient is willing to re-apply for [facility]. Patient uses a scooter, wheelchair and oxygen at home. Patient informed me he had [facility] in the past. Patient will need a resumption order for safety and PT and possible respiratory rehab. Patient denies smoking for the past 20 days. RN Elsi informed me she seen patient outside in the smoking area. Patient keeps getting re-admitted for COPD exacerbation. I informed patient he has a right to speak to a bilingual social worker regarding all care. I informed patient he has a right to participate in any and all discharge planning. Patient does not have a POA and advanced directive. I have offered patient information on POA and advanced directives. I informed the patient the advantages and benefits of having an Advanced Directive. Patient verbalized understanding and agreed to discharge plan. Addendum: 03/20/20 at 1100 by Gisell OLIVARES Amended: Links added.
[2020-03-20 12:44] VITALS: BP 156/105
--- NOTE | 2020-03-20 13:36 | NUR ---
AT BEDSIDE FOR MED NEB. PT NOT IN ROOM.
--- NOTE | 2020-03-20 14:40 | NUR ---
paged Pagerhiannon ENGLE regarding patient status, left message with MD Owusu's canine enforcement officer. Awaiting call back.
--- NOTE | 2020-03-20 15:34 | NUR ---
called provider Paged Chelle WIRE ROLLER regarding patient BP, left message. Awaiting call back.
--- NOTE | 2020-03-20 15:35 | NUR ---
received call back DIAL MOUNTER ananda called back. No new orders received, per provider continue to monitor patient.
--- NOTE | 2020-03-20 15:55 | NUR ---
PHYSICIAN ROUNDING DR. Estevez at bedside. MD updated patient on plan of care. New orders received, will follow through.
[2020-03-20 16:21] VITALS: BP 151/108
[2020-03-20] MEDS ORDERED: LORazepam 2MG/ML-1ML VIAL IV ONE (16:30)
--- NOTE | 2020-03-20 16:41 | NUR ---
education educated patient on side effects of ativan. Educated patient to no get up without assistance and to call for help if needed. Patient verbalized understanding.
[2020-03-20] MEDS ORDERED: HYDROmorphone HCL 2 MG/ML VL IV PRN (17:00)
--- NOTE | 2020-03-20 18:06 | NUR ---
PT SEEN GOING DOWN THE ELEVATOR, VIA MOTOR WHEELCHAIR.
[2020-03-20] MEDS: MAGIC MOUTHWASH 55 ML SUSP MT SCH ×2 (18:57→21:19)
--- NOTE | 2020-03-20 19:12 | NUR ---
end of shift note endorsed care of patient to noc rn. No s/s of distress noted.
[2020-03-20] MEDS: hydrALAZINE HCL 25 MG TAB PO SCH (21:18)
[2020-03-20 21:34] VITALS: BP 156/87
--- NOTE | 2020-03-20 23:00 | NUR ---
AT BEDSIDE FOR MED NEB TX. PT SITTING ON HIS WHEELCHAIR SLUMPED OVER, WOKE PT UP AND ASKED IF HE'D LIKE TO LAY DOWN IN BED FOR HIS TX. PT SAID " NO". MED NEB TX GIVEN IN WHEELCHAIR PT CONTINUOUSLY FALLING ASLEEP ON WHEELCHAIR LEVER/KNOB AND WHEELCHAIR KEEPS BUMPING INTO ROOM FURNITURE. PT WOKEN UP VARIOUS OF TIMES DURING TX RUNNING . PT AGITATED WHEN WAKEN. PT YELLED "WHY ARE YOU YELLING!" EXPLAINED TO PT WHAT IS GOING ON WHEN HE KEEPS FALLING ASLEEP ON WHEELCHAIR LEVER/KNOB. PT IGNORED ME AND WENT BACK TO SLEEP. RN AWARE. WILL CONTINUE TO MONITOR PT. POST TX PLACED PT BACK ON 6LPM NC.
[2020-03-21] MEDS: methylPREDNISolone SOD SUCC 125 MG/2 ML VL IV SCH ×4 (00:15→18:01)
[2020-03-21] MEDS: THROAT LOZENGES(CEPASTAT) MT PRN ×2 (01:32→22:08)
[2020-03-21] MEDS: LORazepam 0.5 MG TAB PO PRN ×2 (01:32→22:16)
--- NOTE | 2020-03-21 02:15 | NUR ---
RN COMMUNICATED PT WAS PLACED ON CPAP BY RN, PT ON CPAP #1. PULSE OX #15 AT THIS TIME. CPAP IS PLUGGED INTO RED OUTLET WITH 6LPM O2 BLEED IN. PT TOLERATING CPAP WELL AT THIS TIME. NO SKIN BREAKDOWN NOTED. PT BS ARE FINE WHEEZES. RT NAME AND PAGER ASSIGNMENT WRITTEN ON PTS ROOM BOARD. WILL CONTINUE TO MONITOR.
[2020-03-21] MEDS: IPRATROPIUM BROM 0.5 MG/2.5ML INH SOL NEB SCH ×6 (02:42→21:36)
[2020-03-21] MEDS: ALBUTEROL SULF 2.5 MG/0.5ML(0.5%) NEB SOLN NEB SCH ×6 (02:43→21:36)
[2020-03-21 05:17] VITALS: BP 158/102
[2020-03-21] MEDS: CARISOPRODOL 350 MG TAB PO SCH ×3 (05:58→22:08)
[2020-03-21] MEDS: MAGIC MOUTHWASH 55 ML SUSP MT SCH ×4 (05:59→22:17)
[2020-03-21] MEDS: SODIUM CHLOR 0.9% PF (SALINE LOCK) 10ML VIAL/SYR IV SCH ×3 (05:59→22:08)
[2020-03-21] MEDS: ACCU-CHEK COMFORT CURVE STRIP VI SCH ×4 (06:36→22:08)
[2020-03-21] MEDS: InsuLIN REG 1unit/0.01ml Soln (100units/ml) SC SCH ×4 (06:36→22:24)
[2020-03-21] MEDS: BUDESONIDE (INHALATION) 0.5 MG/2 ML NEB NEB SCH ×2 (07:11→18:26)
[2020-03-21 08:55] VITALS: BP 111/89
[2020-03-21] MEDS: FUROSEMIDE 20 MG TAB PO SCH (09:53)
[2020-03-21] MEDS: FAMOTIDINE 20 MG TAB PO SCH ×2 (09:54→22:07)
[2020-03-21] MEDS: ENOXAPARIN SOD 40 MG/0.4 ML SYRINGE SC SCH (09:54)
[2020-03-21] MEDS: DOXYCYCLINE 100 MG TAB/CAP PO SCH ×2 (09:54→22:07)
[2020-03-21] MEDS: POTASSIUM CHLORIDE 8 MEQ TAB PO SCH (09:54)
[2020-03-21] MEDS: hydrALAZINE HCL 25 MG TAB PO SCH ×2 (09:54→22:07)
--- NOTE | 2020-03-21 12:49 | NUR ---
Nutrition Followup Notes Wt: 89.4kg Pt was off the floor to smoke per RN. pt with COPD exacerbation. pt is currently on cardiac diet with adequte Po of 75% x 6 per RN doc Est Energy needs: 5459-6177 kcals (17-20 kcal/kgBW), Est Protein needs: 76-95 gms/day (0.8-1.0 gm/kgBW). Will continue to monitor and reassess prn. LABS: GLU 240 H GI: Pt had 5 BM yesterday per RN note BS: 21 low risk. Refer to wound assessment report for full details. PES: 1) Obesity aeb BMI of 34.9 kg/m2 r/t energy intake in excess of energy needs 2) Altered nutrition related lab values aeb hyperglycemia, hypoalbuminemia r/t current medical condition Comments Will continue to monitor PO intake, skin status, pertinent labs and weight trends. Will f/u in 3-5 days. 1) consider CCHO 60 gm along with current diet. 2) refer to CDE on DC. 3) Continue current plan of care
[2020-03-21 13:00] VITALS: BP 140/92
--- NOTE | 2020-03-21 13:28 | NUR ---
STRAW HAT BRIM CUTTER OPERATOR AT BEDSIDE STRAW HAT BRIM CUTTER OPERATOR SP AT BEDSIDE ROUNDING ON PATIENT.
[2020-03-21 16:41] VITALS: BP 139/90
--- NOTE | 2020-03-21 19:00 | NUR ---
PATIENT REFUSED TELEMETRY. EDUCATION PATIENT ON THE IMPORTANCE OF TELEMETRY AND PATIENT VERBALLY ACKNOWLEDGE EDUCATION GIVEN, PATIENT STILL REFUSED.
--- NOTE | 2020-03-21 20:00 | NUR ---
CLEANED ROOM. PATIENT THROWS STUFF, LIQUID, TRASH, SPIT, AND OTHER STUFF ON FLOOR. EDUCATED PATIENT ON CLEANINESS, PATIENT VERBALLY ACKNOWLEDGE EDUCATION GIVEN AND PT STILL SAYS "I DONT CARE WHAT I PUT ON FLOOR".
[2020-03-21 22:00] VITALS: BP 145/90
[2020-03-22] MEDS: methylPREDNISolone SOD SUCC 125 MG/2 ML VL IV SCH ×3 (00:30→11:46)
[2020-03-22] MEDS: IPRATROPIUM BROM 0.5 MG/2.5ML INH SOL NEB SCH ×5 (01:34→18:17)
[2020-03-22] MEDS: ALBUTEROL SULF 2.5 MG/0.5ML(0.5%) NEB SOLN NEB SCH ×5 (01:35→18:17)
[2020-03-22 05:00] VITALS: BP 147/94
[2020-03-22] MEDS: SODIUM CHLOR 0.9% PF (SALINE LOCK) 10ML VIAL/SYR IV SCH ×2 (05:34→13:26)
[2020-03-22] MEDS: MAGIC MOUTHWASH 55 ML SUSP MT SCH ×2 (05:34→11:46)
[2020-03-22] MEDS: CARISOPRODOL 350 MG TAB PO SCH ×2 (05:35→13:28)
--- NOTE | 2020-03-22 06:00 | NUR ---
WOUND CARE AND IV. PROVIDED WOUND CARE TO LEG. IV insertion IV access obtained, via clean sterile technique by inserting 24 gauge catheter at LEFT WRIST after 1 attempt(s). IV secured properly. No trauma to site. Patient tolerated well.
--- NOTE | 2020-03-22 06:00 | NUR ---
CALLED HOUSE KEEPING TO MOP FLOOR.
[2020-03-22] MEDS: BUDESONIDE (INHALATION) 0.5 MG/2 ML NEB NEB SCH (06:14)
[2020-03-22] MEDS: InsuLIN REG 1unit/0.01ml Soln (100units/ml) SC SCH ×2 (06:30→11:08)
[2020-03-22] MEDS: ACCU-CHEK COMFORT CURVE STRIP VI SCH ×2 (06:30→11:08)
[2020-03-22 06:41] LABS: Basophils # (auto) 0 10 ^3/uL (0-0.2); Basophils % (auto) 0.1 % (0.0-2.0); Eosinophils # (auto) 0 10 ^3/uL (0-0.8); Hematocrit 51.5 % (41.0-53.0); Hemoglobin 16.9 g/dL (13.5-17.5); Lymphocytes # (auto) 0.2 10 ^3/uL (0.4-5.4); Lymphocytes % (auto) 1.8 % (10.0-50.0); Mean Corpuscular Hemoglobin 29.6 pg (28.0-32.0); Mean Corpuscular Hgb Conc. 32.8 g/dL (32.0-36.0); Mean Corpuscular Volume 90.3 fL (80.0-100.0); Monocytes # (auto) 0.6 10 ^3/uL (0-1.3); Monocytes % (auto) 4.6 % (0.0-12.0); Neutrophils # (auto) 11.8 10 ^3/uL (1.6-8.6); Neutrophils % (auto) 93.5 % (37.0-80.0); Platelet Count (auto) 121 10^3/uL (140-450); Red Blood Cells 5.71 10^6/uL (4.5-5.90); Red Cell Distribution Width 19.7 % (11.8-14.3); White Blood Cell 12.7 10^3/uL (4.4-10.8)
[2020-03-22 07:08] LABS: Potassium 4.6 mmol/L (3.5-5.1)
[2020-03-22 07:20] LABS: Albumin 3.5 g/dL (3.4-5.0); BUN/Creatinine Ratio 33.7; Bilirubin, Total 0.8 mg/dL (0.2-1.0); Calcium 8.2 mg/dL (8.5-10.1); Magnesium 2.9 mg/dL (1.6-2.6)
--- NOTE | 2020-03-22 07:43 | NUR ---
Dr Toribio at Bedside MD to see pt. Requested for primary MD to f/u on mouth sore complaints. New orders given, will implement and continue to monitor.
--- NOTE | 2020-03-22 07:55 | NUR ---
Opening Note Assumed pt care from NOC RN. Pt is a/ox4 with no s/s of distress or SOB. Pt is currently sitting upright in chair with mild c/o irritation to mouth, discussed available aids. Pt is currently on 4L via NC. Discussed POC with pt, pt verbalized understanding. Safety measures maintained with call light within reach, bed in lowest position and side rails up. Will continue to monitor for changes.
[2020-03-22] MEDS ORDERED: ALUM & MAG HYDROX-SIMETH LIQ(MAALOX) 30 ML GT PRN (08:00)
[2020-03-22] MEDS: DOXYCYCLINE 100 MG TAB/CAP PO SCH (08:40)
[2020-03-22] MEDS: FAMOTIDINE 20 MG TAB PO SCH (08:40)
[2020-03-22] MEDS: ENOXAPARIN SOD 40 MG/0.4 ML SYRINGE SC SCH (08:40)
[2020-03-22] MEDS: hydrALAZINE HCL 25 MG TAB PO SCH (08:41)
[2020-03-22] MEDS: FUROSEMIDE 20 MG TAB PO SCH (08:41)
[2020-03-22] MEDS: POTASSIUM CHLORIDE 8 MEQ TAB PO SCH (08:41)
[2020-03-22 09:08] VITALS: BP 142/99
[2020-03-22] MEDS: LORazepam 0.5 MG TAB PO PRN (09:46)
[2020-03-22] MEDS ORDERED: HYDROmorphone HCL 2 MG/ML VL IV PRN ×2 (12:00→12:15)
[2020-03-22 12:46] VITALS: BP 130/88
--- NOTE | 2020-03-22 15:37 | NUR ---
re-assessment Per consult patient requesting HH for in home support. Patient is on service with [facility]. MD order has been sent to [facility]. Per Samir service will resume on 03/24/2020. Patient has been notified. Addendum: 03/22/20 at 1539 by Gisell Beltran Amended: Links added.
--- NOTE | 2020-03-22 16:25 | NUR ---
AMA Pt adamant that he is to leave, stating "I am leaving, I am not feeling good, I am going to another hospital to get care". Discussed with pt that he is being taken care of here and we are treating him. Pt still persistent in need to leave. Pt signed AMA form, took all belongings, IV was removed as well as tele monitor. Pt educated on risks of leaving, pt still adamant to leave hospital. Notified Diana. RAKEL.
[2020-03-22 16:44] VITALS: BP 137/98
== END 2020-03-22 16:40 | disposition left against medical advice (07) | DRG 189 ==
LOC: ER 08:23 → TELE 08:24 → OBSVTOIN 08:24 → TELE-CENTR 14:38
PROVIDERS: ADMIT Nurse Practitioner; ATTEND Internal Medicine
PROC: 5A09357 Assistance with Respiratory Ventilation, Less than 24 Consecutive Hours, Continuous Positive Airway Pressure (ICD-10-PCS; principal; 2020-03-19)
PROC: 5A09357 Assistance with Respiratory Ventilation, Less than 24 Consecutive Hours, Continuous Positive Airway Pressure (ICD-10-PCS; 2020-03-21)
DX: J96.01 Acute respiratory failure with hypoxia (principal); N17.0 Acute kidney failure with tubular necrosis; J45.901 Unspecified asthma with (acute) exacerbation; J98.11 Atelectasis; J43.9 Emphysema, unspecified; E66.9 Obesity, unspecified; I25.10 Atherosclerotic heart disease of native coronary artery without angina pectoris; G89.4 Chronic pain syndrome; D72.829 Elevated white blood cell count, unspecified; E11.40 Type 2 diabetes mellitus with diabetic neuropathy, unspecified; E78.5 Hyperlipidemia, unspecified; F17.210 Nicotine dependence, cigarettes, uncomplicated; F41.1 Generalized anxiety disorder; G20 Parkinson's disease; I50.9 Heart failure, unspecified; F32.9 Major depressive disorder, single episode, unspecified; I11.0 Hypertensive heart disease with heart failure; Z20.828 Contact with and (suspected) exposure to other viral communicable diseases; Z53.29 Procedure and treatment not carried out because of patient's decision for other reasons; R00.0 Tachycardia, unspecified; M79.7 Fibromyalgia; I25.2 Old myocardial infarction; Z68.34 Body mass index [BMI] 34.0-34.9, adult; Z80.9 Family history of malignant neoplasm, unspecified; Z82.49 Family history of ischemic heart disease and other diseases of the circulatory system; Z82.5 Family history of asthma and other chronic lower respiratory diseases; Z86.73 Personal history of transient ischemic attack (TIA), and cerebral infarction without residual deficits; Z83.3 Family history of diabetes mellitus; Z87.442 Personal history of urinary calculi; Z99.81 Dependence on supplemental oxygen
CPT/HCPCS: 36415; 36600; 71045; 80053; 81001; 82805; 82962; 83735; 83880; 84484; 85025; 85610; 85730; 93005; 94640; 94660; 96361; 96374; 99291; G0378; J0696; J1815

== ENCOUNTER 2020-04-06 02:43 | Inpatient (IN) | payer MEDICARE, OTHER ==
[~2020-04-06] VITALS: Ht 167.6 cm; Wt 89.8 kg
[2020-04-06] MEDS ORDERED: SODIUM CHLORIDE 0.9% 1,000 ML IV ONE (03:45)
[2020-04-06] MEDS ORDERED: PIPERACILLIN-TAZOB 3.375GM 100 ML IV ONE (03:45)
[2020-04-06 03:55] LABS: Basophils # (auto) 0 10 ^3/uL (0-0.2); Basophils % (auto) 0.2 % (0.0-2.0); Eosinophils # (auto) 0 10 ^3/uL (0-0.8); Eosinophils % (auto) 0.1 % (0.0-7.0); Hematocrit 47.5 % (41.0-53.0); Hemoglobin 15.6 g/dL (13.5-17.5); Lymphocytes # (auto) 1.2 10 ^3/uL (0.4-5.4); Lymphocytes % (auto) 11.3 % (10.0-50.0); Mean Corpuscular Hemoglobin 29.4 pg (28.0-32.0); Mean Corpuscular Hgb Conc. 32.9 g/dL (32.0-36.0); Mean Corpuscular Volume 89.3 fL (80.0-100.0); Monocytes # (auto) 0.6 10 ^3/uL (0-1.3); Monocytes % (auto) 5.8 % (0.0-12.0); Neutrophils # (auto) 8.4 10 ^3/uL (1.6-8.6); Neutrophils % (auto) 82.6 % (37.0-80.0); Nucleated Red Blood Cells % 0.3 %; Platelet Count (auto) 126 10^3/uL (140-450); Red Blood Cells 5.31 10^6/uL (4.5-5.90); Red Cell Distribution Width 19.9 % (11.8-14.3); White Blood Cell 10.2 10^3/uL (4.4-10.8)
[2020-04-06 04:10] LABS: INR 1.04 (0.9-1.15)
[2020-04-06 04:15] LABS: Albumin 3.3 g/dL (3.4-5.0); BUN/Creatinine Ratio 22.5; Calcium 8.3 mg/dL (8.5-10.1); Potassium 3.8 mmol/L (3.5-5.1)
[2020-04-06 04:18] LABS: Lactic Acid w/Reflex 2.2 mmol/L (0.4-2.0)
[2020-04-06 04:20] LABS: Bilirubin, Total 0.3 mg/dL (0.2-1.0); Total Protein 6.2 g/dL (6.4-8.2)
[2020-04-06] MEDS ORDERED: CEFTRIAXONE SODIUM 2 GM in D5W 5% 50 ML IV ONE (06:30)
[2020-04-06] MEDS ORDERED: methylPREDNISolone SOD SUCC 125 MG/2 ML VL IV ONE (06:30)
[2020-04-06 06:41] LABS: Urine WBC None Seen /hpf (0 - 3)
[2020-04-06 07:07] LABS: Urine Bacteria NONE SEEN /hpf (None Seen); Urine Blood Negative /uL (Negative); Urine Hyaline Cast FEW /lpf (0 - 2); Urine Specific Gravity 1.023 (1.001-1.035)
[2020-04-06] MEDS ORDERED: DEXTROSE (50%) 50ML SYRG IV PRN (08:00)
[2020-04-06] MEDS ORDERED: NITROGLYCERIN 0.4 MG SL TAB SL PRN (08:00)
[2020-04-06] MEDS ORDERED: ONDANSETRON HCL 4 MG/2 ML VIAL IV PRN (08:00)
[2020-04-06] MEDS ORDERED: MORPHINE SULFATE 4 MG/ML SYR/VIAL IV PRN (08:00)
[2020-04-06] MEDS ORDERED: ACETAMINOPHEN 325 MG TAB PO PRN (08:00)
[2020-04-06] MEDS ORDERED: DOCUSATE SOD 100 MG CAP PO PRN (08:00)
[2020-04-06] MEDS ORDERED: HYDROcodone-ACET 5/325MG TAB PO PRN (08:00)
[2020-04-06] MEDS ORDERED: cefTRIAXone 1GM/50ML D5W 50 ML IV SCH (09:00)
[2020-04-06] MEDS ORDERED: PANTOPRAZOLE 40 MG/10 ML VIAL INJ IV SCH (10:00)
[2020-04-06] MEDS ORDERED: ZINC SULFATE 220mg CAP or TAB PO SCH (10:00)
[2020-04-06] MEDS ORDERED: MULTIPLE VITAMIN TAB PO SCH (10:00)
[2020-04-06] MEDS ORDERED: ASCORBIC ACID 500 MG TAB PO SCH (10:00)
[2020-04-06] MEDS ORDERED: ENOXAPARIN SOD 40 MG/0.4 ML SYRINGE SC SCH (10:00)
[2020-04-06] MEDS: ACCU-CHEK COMFORT CURVE STRIP VI SCH ×2 (11:56→17:07)
[2020-04-06] MEDS: InsuLIN REG 1unit/0.01ml Soln (100units/ml) SC SCH ×2 (12:08→18:09)
[2020-04-06] MEDS ORDERED: SODIUM CHLOR 0.9% PF (SALINE LOCK) 10ML VIAL/SYR IV SCH (14:00)
[2020-04-06] MEDS ORDERED: methylPREDNISolone SOD SUCC 125 MG/2 ML VL IV SCH (14:00)
[2020-04-06] MEDS ORDERED: methylPREDNISolone SOD SUCC 40 MG/ML VL IV SCH (14:00)
[2020-04-06 16:18] VITALS: BP 155/69
--- NOTE | 2020-04-06 18:09 | NUR ---
Midline Placement: Patient educated on need for midline placement. All risks and benefits explained and all questions and concerns addresses prior to procedure. 4 fr midline inserted via right basilic vein using Ultrasound. Sterile technique utilized. Blood return obtained from the single lumen and it flushed easily with NS using proper technique. Midline secured with stat-lock; biodisc and occlusive dressing applied. Less than 5ml EBL noted during procedure. Midline 20cm internally w/ 0cm externally. Primary RN, Misty, notified now ok to use midline. Baseline arm circumference 31cm at 1cm above insertion site. Midline lot # [id number].
[2020-04-06] MEDS ORDERED: ALBUTEROL SULF 2.5 MG/0.5ML(0.5%) NEB SOLN NEB PRN (19:30)
[2020-04-06] MEDS ORDERED: IPRATROPIUM BROM 0.5 MG/2.5ML INH SOL NEB PRN (19:30)
[2020-04-06 20:19] VITALS: BP 118/76
[2020-04-06] MEDS ORDERED: InsuLIN REG 1unit/0.01ml Soln (100units/ml) SC SCH (22:00)
== END 2020-04-06 22:20 | disposition left against medical advice (07) | DRG 189 ==
LOC: EDBD 02:43 → ER 02:43 → TELE 02:44
PROVIDERS: ADMIT Nurse Practitioner Family; ATTEND Internal Medicine
PROC: 5A09357 Assistance with Respiratory Ventilation, Less than 24 Consecutive Hours, Continuous Positive Airway Pressure (ICD-10-PCS; principal; 2020-04-06)
DX: J96.01 Acute respiratory failure with hypoxia (principal); J44.1 Chronic obstructive pulmonary disease with (acute) exacerbation; L03.115 Cellulitis of right lower limb; I11.0 Hypertensive heart disease with heart failure; E11.40 Type 2 diabetes mellitus with diabetic neuropathy, unspecified; E78.5 Hyperlipidemia, unspecified; F17.210 Nicotine dependence, cigarettes, uncomplicated; G20 Parkinson's disease; F32.9 Major depressive disorder, single episode, unspecified; F41.9 Anxiety disorder, unspecified; G89.29 Other chronic pain; Z20.828 Contact with and (suspected) exposure to other viral communicable diseases; Z53.29 Procedure and treatment not carried out because of patient's decision for other reasons; I25.10 Atherosclerotic heart disease of native coronary artery without angina pectoris; I25.2 Old myocardial infarction; Z79.899 Other long term (current) drug therapy; Z80.9 Family history of malignant neoplasm, unspecified; Z82.49 Family history of ischemic heart disease and other diseases of the circulatory system; Z82.5 Family history of asthma and other chronic lower respiratory diseases; Z83.3 Family history of diabetes mellitus; Z86.73 Personal history of transient ischemic attack (TIA), and cerebral infarction without residual deficits; Z87.442 Personal history of urinary calculi; Z88.5 Allergy status to narcotic agent; Z71.6 Tobacco abuse counseling; I50.9 Heart failure, unspecified
CPT/HCPCS: 36415; 36600; 71045; 73590; 80053; 81001; 82805; 82962; 83605; 83735; 83880; 84484; 85025; 85610; 85730; 87040; 87077; 87186; 87205; 87426; 93005; 93971; 94640; 94660; 96365; 96366; 96367; C9113; G0378; J0696; J1815; J2543; J7060